=== PATIENT | female | born 1975 | race African-American/Black ===

== ENCOUNTER 2016-11-01 21:00 | Emergency (ER) | payer MEDICAID ==
[~2016-11-01] VITALS: Ht 165.1 cm; Wt 104.3 kg
[~2016-11-01 21:00] MED LIST: BLEPH-105 ML OP; FIORICET1 EA ORAL; FUROSEMIDE40 MG ORAL; IBUPROFEN600 MG ORAL; IMITREX50 MG ORAL; NAPHCON-A EYE D15 ML OP; NORCO 5-325 TA1 EACH ORAL; ZOFRAN ODT4 MG ORAL; ZOFRAN4 M3 ORAL
[2016-11-01] MEDS ORDERED: NKM (21:06)
[2016-11-01] MEDS ORDERED: Aspirin Baby 81mg ORAL ONE (21:15)
[2016-11-01] MEDS ORDERED: LORazepam Inj 2mg/ml 1ml IV ONE (21:15)
[2016-11-01] MEDS ORDERED: Morphine Sulfate 2mg/ml Inj IVP ONE (21:15)
[2016-11-01] MEDS ORDERED: Famotidine 20 MG/ 2ML VIAL IVP ONE (21:15)
[2016-11-01 21:51] LABS: BASOPHILS % (AUTO) 1.3 % (0.0-2.0); EOSINOPHILS % (AUTO) 1.4 % (0.0-3.0); LYMPHOCYTES % (AUTO) 37.7 % (20.0-45.0); MEAN CORPUSCULAR HEMOGLOBIN 29.3 PG (27.0-31.0); MEAN CORPUSCULAR HGB CONC 32.2 G/DL (32.0-36.0); MEAN CORPUSCULAR VOLUME 91 FL (80-99); MEAN PLATELET VOLUME 7.3 FL (6.5-10.1); MONOCYTES % (AUTO) 5.4 % (1.0-10.0); NEUTROPHILS % (AUTO) 54.2 % (45.0-75.0); PLATELET COUNT 317 K/UL (150-450); RED BLOOD COUNT 4.02 M/UL (4.20-5.40); RED CELL DISTRIBUTION WIDTH 12.8 % (11.6-14.8); WHITE BLOOD COUNT 9.1 K/UL (4.8-10.8)
[2016-11-01 21:56] VITALS: BP 169/108
[2016-11-01 22:14] LABS: ALANINE AMINOTRANSFERASE 16 U/L (3-33); ALBUMIN/GLOBULIN RATIO 1.4 (1.0-2.7); ANION GAP 19 (5-15); ASPARTATE AMINO TRANSFERASE 21 U/L (5-40); CALCIUM 8.7 mg/dL (8.6-10.2); CARBON DIOXIDE 22 mEQ/L (20-30); CHLORIDE 99 mEQ/L (98-107); GLOMERULAR FILTRATION RATE > 60 mL/min (>60); HEMOLYSIS 51; POTASSIUM 3.4 mEQ/L (3.4-4.9); SODIUM 140 mEQ/L (135-145); TOTAL PROTEIN 7.1 g/dL (6.6-8.7); TROPONIN I < 0.30 ng/mL (<=0.30)
--- NOTE | 2016-11-01 22:31 | Emergency Room Report ---
History of Present Illness General Chief Complaint: Chest Pain Source: Patient Present Illness HPI Patient presents with chest pain. She feels as been sharp and pressure which began at 13:00. Pain is not exertional. Some associated dyspnea and nausea. More anxiety. Pain not radiate. Not sig rad to L arm. Not take aspirin. No vomit, melena. Slight nausea. Pain 10/10. No fevers, cough, URI, sore throat, rashes. Chest increased stress because her father has recently had amputations. She's been caring for her dad recently. Tearful and feel overwhelmed and also sad. Not SI. Periods are somewhat irregular. Allergies: Coded Allergies: SHELLFISH DERIVED (Unverified Allergy, Unknown, 11/12/15) Uncoded Allergies: SHELL FISH (Allergy, Unknown, 11/12/15) Patient History Past Medical History: see triage record Pertinent Family History: DM Social History: Reports: smoking - although she denied this to me Social History Narrative Last Menstrual Period: 10/20/2016 Now: No : 7 Para: 3 Reviewed Nursing Documentation: PMH: Agreed, PSxH: Agreed Nursing Documentation-PMH Hx Hypertension: Yes Review of Systems All Other Systems: negative except mentioned in HPI Physical Exam Vital Signs Date Time Temp Pulse Resp B/P Pulse Ox O2 Delivery O2 Flow Rate FiO2 11/01/16 21:02 98.6 111 20 196/144 99 Room Air Sp02 EP Interpretation: reviewed, normal General Appearance: well appearing, GCS 15, mild distress Head: normocephalic Eyes: bilateral eye PERRL, bilateral eye normal inspection, bilateral eye other - tears ENT: moist mucus membranes Neck: supple Respiratory: chest non-tender, lungs clear, normal breath sounds Cardiovascular #1: regular rate, rhythm Cardiovascular #2: 2+ radial (R) Gastrointestinal: normal inspection, normal bowel sounds, non tender, no mass, non-distended, overweight Musculoskeletal: back normal, gait/station normal, normal range of motion, no calf tenderness Neurologic: alert, oriented x3, motor strength/tone normal, grossly normal Psychiatric: depressed affect Skin: normal inspection, warm/dry Medical Decision Making Diagnostic Impression: Primary Impression: Chest pain Qualified Codes: R07.9 - Chest pain, unspecified Additional Impression: Stress ER Course Patient presents with chest pain. History is atypical and risk factors minimal. DDx; acs, ami, GERD, stress, costochondritis, viral syndrome amongst others. Emergent evaluation with EKG, CXR, labs. Treatment with ativan and analgesics. VS and history against PE. Will also give pepcid as GI high on differential. EKG normal. CXR also without CP disease. Labs unremarkable. Patient greatly improved. Patient stable for outpatient observation and treatment. Laboratory Tests Test 11/01/16 21:24 White Blood Count 9.1 K/UL (4.8-10.8) Red Blood Count 4.02 M/UL (4.20-5.40) L Hemoglobin 11.8 G/DL (12.0-16.0) L Hematocrit 36.7 % (37.0-47.0) L Mean Corpuscular Volume 91 FL (80-99) Mean Corpuscular Hemoglobin 29.3 PG (27.0-31.0) Mean Corpuscular Hemoglobin Concent 32.2 G/DL (32.0-36.0) Red Cell Distribution Width 12.8 % (11.6-14.8) Platelet Count 317 K/UL (150-450) Mean Platelet Volume 7.3 FL (6.5-10.1) Neutrophils (%) (Auto) 54.2 % (45.0-75.0) Lymphocytes (%) (Auto) 37.7 % (20.0-45.0) Monocytes (%) (Auto) 5.4 % (1.0-10.0) Eosinophils (%) (Auto) 1.4 % (0.0-3.0) Basophils (%) (Auto) 1.3 % (0.0-2.0) Urine HCG, Qualitative Negative Sodium Level 140 mEQ/L (135-145) Potassium Level 3.4 mEQ/L (3.4-4.9) Chloride Level 99 mEQ/L (98-107) Carbon Dioxide Level 22 mEQ/L (20-30) Anion Gap 19 (5-15) H Blood Urea Nitrogen 7 mg/dL (7-23) Creatinine 1.0 mg/dL (0.5-0.9) H Estimate Glomerular Filtration Rate > 60 mL/min (>60) Glucose Level 102 mg/dL (74-106) Calcium Level 8.7 mg/dL (8.6-10.2) Total Bilirubin 0.6 mg/dL (0.0-1.2) Aspartate Amino Transferase (AST) 21 U/L (5-40) Alanine Aminotransferase (ALT) 16 U/L (3-33) Alkaline Phosphatase 48 U/L (35-104) Total Creatine Kinase 128 U/L (26-140) Troponin I < 0.30 ng/mL (<=0.30) Total Protein 7.1 g/dL (6.6-8.7) Albumin 4.2 g/dL (3.5-5.2) Globulin 2.9 g/dL Albumin/Globulin Ratio 1.4 (1.0-2.7) EKG Diagnostic Results Rate: tachycardiac ST Segments: no acute changes Rhythm Strip Diag. Results EP Interpretation: yes Rhythm: no PVC's, no ectopy, other - ST Chest X-Ray Diagnostic Results EP Interpretation: Yes Findings: no consolidation, no effusion, no pneumothorax, no acute cardiopulmonary disease Number of Views: 1 Last Vital Signs Date Time Temp Pulse Resp B/P Pulse Ox O2 Delivery O2 Flow Rate FiO2 11/01/16 21:58 98.6 11/01/16 21:56 89 20 169/108 99 Room Air Status: improved Disposition: HOME, SELF-CARE Condition: Improved Scripts Famotidine (PEPCID) 20 Mg Tablet 20 MG ORAL DAILY, #30 TAB 0 Refills Prov: Philip Nielsen M.D. 11/01/16 Tramadol Hcl* (ULTRAM*) 50 Mg Tablet 50 MG ORAL Q6H Y for For Pain, #12 TAB 0 Refills Prov: Philip Nielsen M.D. 11/01/16 Referrals: [facility],REF (PCP) Philip Nielsen M.D. Nov 01, 2016 22:31
[2016-11-01] MEDS ORDERED: PEPCID20 MG ORAL (23:03)
[2016-11-01] MEDS ORDERED: TRAMADOL HCL50 MG ORAL (23:03)
[2016-11-01 23:15] VITALS: BP 148/99
--- NOTE | 2016-11-02 10:02 | Diagnostic Imaging Report ---
Indication: Chest pain Technique: XRAY CHEST 1 V Comparison: None Findings: The cardiomediastinal silhouette is within normal limits. There is no focal consolidation, pneumothorax or pleural effusion. Osseous structures demonstrate no acute abnormality. Impression: No acute cardiopulmonary disease.
--- NOTE | 2016-11-08 16:43 | Cardiology Report ---
APPROVED REPORT EKG Measurement Heart [id number] Sinus tachycardia Otherwise normal ECG
== END 2016-11-01 23:17 | disposition home or self-care (01) ==
LOC: EMR 21:18
DX: R07.9 Chest pain, unspecified (principal); F43.9 Reaction to severe stress, unspecified; I10 Essential (primary) hypertension; E11.9 Type 2 diabetes mellitus without complications; F17.200 Nicotine dependence, unspecified, uncomplicated; Z91.013 Allergy to seafood
CPT/HCPCS: 36415; 71010; 80053; 81025; 82550; 84484; 85025; 93005; 96374; 96375; 99284; J2270; J2405; S0028

== ENCOUNTER 2017-06-20 13:31 | Emergency (ER) | payer MEDICAID ==
[~2017-06-20] VITALS: Ht 165.1 cm; Wt 112.5 kg
[~2017-06-20 13:31] MED LIST changes: +NKM; +PEPCID20 MG ORAL; +TRAMADOL HCL50 MG ORAL
[2017-06-20 13:45] VITALS: BP 141/79
[2017-06-20] MEDS ORDERED: Morphine Sulfate 2mg/ml Inj IVP ONE (14:15)
[2017-06-20] MEDS ORDERED: LORazepam Inj 2mg/ml 1ml IV ONE (14:15)
[2017-06-20 14:35] LABS: EOSINOPHILS % (AUTO) 1.6 % (0.0-3.0); LYMPHOCYTES % (AUTO) 37.6 % (20.0-45.0); MEAN CORPUSCULAR HEMOGLOBIN 30.3 PG (27.0-31.0); MEAN CORPUSCULAR HGB CONC 32.5 G/DL (32.0-36.0); MEAN CORPUSCULAR VOLUME 93 FL (80-99); MEAN PLATELET VOLUME 7.5 FL (6.5-10.1); MONOCYTES % (AUTO) 8.8 % (1.0-10.0); PLATELET COUNT 362 K/UL (150-450); RED BLOOD COUNT 3.97 M/UL (4.20-5.40); RED CELL DISTRIBUTION WIDTH 12.6 % (11.6-14.8); WHITE BLOOD COUNT 7.1 K/UL (4.8-10.8)
--- NOTE | 2017-06-20 14:55 | Emergency Room Report ---
History of Present Illness General Chief Complaint: Chest Pain Source: Patient, Medical Record Present Illness HPI 42-year-old female presents to ED for evaluation. Patient is here complaining of chest tightness x2 days. Pain is 5/10, sharp, localized to left lower chest. Nonradiating. Denies shortness of breath. Patient denies fevers or chills. Denies cough. States she's been here similar recent patient in the past. Work up is negative. 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 Patient believes her symptoms are possibly due to anxiety. Has recently several stressors in her life. Denies smoking or drug use. No other aggravating relieving factors. Denies any other associated symptoms Allergies: Coded Allergies: SHELLFISH DERIVED (Unverified Allergy, Unknown, 11/12/15) Uncoded Allergies: SHELL FISH (Allergy, Unknown, 11/12/15) Patient History Past Medical History: none, HTN Past Surgical History: none Pertinent Family History: none Social History: Denies: smoking, alcohol use, drug use Last Menstrual Period: 06/01/17 Now: No Immunizations: UTD Reviewed Nursing Documentation: PMH: Agreed, PSxH: Agreed Nursing Documentation-PMH Past Medical History: No History, Except For Hx Hypertension: Yes Review of Systems All Other Systems: negative except mentioned in HPI Physical Exam Vital Signs Date Time Temp Pulse Resp B/P (MAP) Pulse Ox O2 Delivery O2 Flow Rate FiO2 06/20/17 13:39 97.2 94 14 141/79 100 Room Air Sp02 EP Interpretation: reviewed, normal General Appearance: no apparent distress, alert, GCS 15, non-toxic, obese Head: normocephalic, atraumatic Eyes: bilateral eye normal inspection, bilateral eye PERRL ENT: hearing grossly normal, normal pharynx, no angioedema, normal voice Neck: full range of motion, supple/symm/no masses Respiratory: lungs clear, normal breath sounds, speaking full sentences, other - reproducible chest wall pain Cardiovascular #1: regular rate, rhythm, no edema Cardiovascular #2: 2+ carotid (R), 2+ carotid (L), 2+ radial (R), 2+ radial (L) , 2+ dorsalis pedis (R), 2+ dorsalis pedis (L) Gastrointestinal: normal bowel sounds, non tender, soft, non-distended, no guarding, no rebound Rectal: deferred Genitourinary: normal inspection, no CVA tenderness Musculoskeletal: back normal, gait/station normal, normal range of motion, non- tender Neurologic: alert, oriented x3, responsive, motor strength/tone normal, sensory intact, speech normal Psychiatric: judgement/insight normal, memory normal, mood/affect normal, no suicidal/homicidal ideation Reflexes: 3+ bicep (R), 3+ bicep (L), 3+ tricep (R), 3+ tricep (L), 3+ knee (R) , 3+ knee (L) Skin: normal color, no rash, warm/dry, well hydrated Lymphatic: no adenopathy Medical Decision Making Diagnostic Impression: Primary Impression: Chest pain Qualified Codes: R07.9 - Chest pain, unspecified Additional Impression: Stress ER Course Hospital Course 42-year-old F presents ED complaining of chest pain Differential diagnoses include: Rib fracture, MN/unstable angina, contusion, muscle strain Clinical course Patient placed on stretcher. After initial history and physical I ordered labs , EKG, chest x-ray, medications. labs reviewed- all electrolytes normal, troponins negative, no leukocytosis, hemoglobin/hematocrit stable EKG - NSR , no acute ischemic changes interpreted by me Chest x-ray-no cardiomegaly, no rib fracture, no pneumothorax, no acute process I reviewed EMR. Patient has been here previously for similar episode of chest pain. Workup was also negative at that time. Possibility of anxiety discussed with patient at that time. I agree with assessment of anxiety. I examined the patient and believe the pain is also likely muscular. 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 I feel this is a highly complex case requiring extensive working including EKG/Rhythm strip, Xray/CT/US, Blood/urine lab work, repeat exams while in ED, and administration of strong opiates/narcotics for pain control, admission to hospital or close patient follow up. Diagnosis - chest pain Stable and discharged to home with Rx Xanax. Instructed to followup with PMD. Return to ED if symptoms recur or worsen Labs Test 06/20/17 14:20 White Blood Count 7.1 K/UL (4.8-10.8) Red Blood Count 3.97 M/UL (4.20-5.40) Hemoglobin 12.0 G/DL (12.0-16.0) Hematocrit 37.0 % (37.0-47.0) Mean Corpuscular Volume 93 FL (80-99) Mean Corpuscular Hemoglobin 30.3 PG (27.0-31.0) Mean Corpuscular Hemoglobin Concent 32.5 G/DL (32.0-36.0) Red Cell Distribution Width 12.6 % (11.6-14.8) Platelet Count 362 K/UL (150-450) Mean Platelet Volume 7.5 FL (6.5-10.1) Neutrophils (%) (Auto) 51.0 % (45.0-75.0) Lymphocytes (%) (Auto) 37.6 % (20.0-45.0) Monocytes (%) (Auto) 8.8 % (1.0-10.0) Eosinophils (%) (Auto) 1.6 % (0.0-3.0) Basophils (%) (Auto) 1.0 % (0.0-2.0) Sodium Level 142 MMOL/L (136-145) Potassium Level 3.3 MMOL/L (3.5-5.1) Chloride Level 106 MMOL/L (98-107) Carbon Dioxide Level 23 MMOL/L (21-32) Anion Gap 13 mmol/L (5-15) Blood Urea Nitrogen 12 mg/dL (7-18) Creatinine 1.0 MG/DL (0.55-1.30) Estimat Glomerular Filtration Rate > 60 mL/min (>60) Glucose Level 83 MG/DL (74-106) Calcium Level 9.4 MG/DL (8.5-10.1) Total Bilirubin 0.4 MG/DL (0.2-1.0) Aspartate Amino Transf (AST/SGOT) 15 U/L (15-37) Alanine Aminotransferase (ALT/SGPT) 21 U/L (12-78) Alkaline Phosphatase 43 U/L (46-116) Total Creatine Kinase 94 U/L (26-308) Creatine Kinase MB 0.5 NG/ML (0.0-3.6) Creatine Kinase MB Relative Index 0.5 Troponin I 0.000 ng/mL (0.000-0.056) Total Protein 7.3 G/DL (6.4-8.2) Albumin 3.5 G/DL (3.4-5.0) Globulin 3.8 g/dL Albumin/Globulin Ratio 0.9 (1.0-2.7) EKG Diagnostic Results Rate: normal Rhythm: NSR ST Segments: no acute changes ASA given to the pt in ED: No Rhythm Strip Diag. Results EP Interpretation: yes Rhythm: NSR, no PVC's, no ectopy Chest X-Ray Diagnostic Results Chest X-Ray Diagnostic Results : # of Views/Limited/Complete: 1 View Indication: Chest Pain EP Interpretation: Yes Interpretation: no consolidation, no effusion, no pneumothorax, no acute cardiopulmonary disease Impression: No acute disease Electronically Signed by: electronically signed by Lamin Langford MD Last Vital Signs Date Time Temp Pulse Resp B/P (MAP) Pulse Ox O2 Delivery O2 Flow Rate FiO2 06/20/17 13:39 97.2 94 14 141/79 100 Room Air Status: improved Disposition: HOME, SELF-CARE Condition: Serious Scripts Alprazolam* (XANAX*) 0.25 Mg Tablet 0.25 MG ORAL TID Y for For Anxiety, #20 TAB Prov: LAMIN LANGFORD M.D. 06/20/17 LAMIN LANGFORD M.D. Jun 20, 2017 14:55
[2017-06-20 14:57] LABS: ALANINE AMINOTRANSFERASE 21 U/L (12-78); ALBUMIN/GLOBULIN RATIO 0.9 (1.0-2.7); ANION GAP 13 mmol/L (5-15); ASPARTATE AMINO TRANSFERASE 15 U/L (15-37); CALCIUM 9.4 MG/DL (8.5-10.1); CARBON DIOXIDE 23 MMOL/L (21-32); CHLORIDE 106 MMOL/L (98-107); CKMB 0.5 NG/ML (0.0-3.6); GLOMERULAR FILTRATION RATE > 60 mL/min (>60); POTASSIUM 3.3 MMOL/L (3.5-5.1); SODIUM 142 MMOL/L (136-145); TOTAL PROTEIN 7.3 G/DL (6.4-8.2)
[2017-06-20 15:15] VITALS: BP 136/82
[2017-06-20] MEDS ORDERED: ALPRAZOLAM0.25 MG ORAL (15:15)
[2017-06-20 15:27] VITALS: BP 136/82
--- NOTE | 2017-06-20 17:44 | Diagnostic Imaging Report ---
Indication: PAIN Technique: One view of the chest Comparison: 11/01/2016 Findings: Lungs and pleural spaces are clear. Heart size is normal. No significant interim change Impression: No acute process
--- NOTE | 2017-06-22 17:34 | Cardiology Report ---
APPROVED REPORT EKG Measurement Heart [id number] Normal sinus rhythm Prolonged QT Abnormal ECG
== END 2017-06-20 15:27 | disposition home or self-care (01) ==
LOC: EMR 14:04
DX: R07.9 Chest pain, unspecified (principal); I10 Essential (primary) hypertension
CPT/HCPCS: 36415; 71010; 80053; 82550; 82553; 84484; 85025; 93005; 96374; 96375; 99284; J2270; S0028

== ENCOUNTER 2017-10-03 06:03 | Inpatient (IN) | payer MEDICAID ==
[2017-10-03] VITALS (9 sets, daily range): BP systolic 138–178; BP diastolic 74–123
[~2017-10-03] VITALS: Ht 162.6 cm; Wt 104.3 kg
[~2017-10-03 06:03] MED LIST changes: +ALPRAZOLAM0.25 MG ORAL
[2017-10-03] MEDS ORDERED: NKM (06:20)
--- NOTE | 2017-10-03 06:56 | Emergency Room Report ---
History of Present Illness General Chief Complaint: Diarrhea Source: Patient Present Illness HPI Patient presents with complaints of initially diarrhea Ongoing for the past 3 days patient has also developed a headache describes as a migraine headache She has had migraines in the past starting in the occipital region coming up toward bilateral parietal region Patient also complains of cough Denies any vomiting Denies any fevers or chills denies any neck pain denies any photophobia Denies any fall or trauma patient reports that she has not taken any medication prior to arrival She reports that she has taken Imitrex in the past for migraines Allergies: Coded Allergies: SHELLFISH DERIVED (Unverified Allergy, Unknown, 11/12/15) Patient History Past Medical History: see triage record Pertinent Family History: none Last Menstrual Period: 09/14/17 Now: No : 7 Para: 3 Reviewed Nursing Documentation: PMH: Agreed, PSxH: Agreed Nursing Documentation-PMH Hx Hypertension: Yes Review of Systems All Other Systems: negative except mentioned in HPI Physical Exam Vital Signs Date Time Temp Pulse Resp B/P (MAP) Pulse Ox O2 Delivery O2 Flow Rate FiO2 10/03/17 06:16 99.9 119 18 178/123 93 Room Air Sp02 EP Interpretation: reviewed, normal General Appearance: no apparent distress Head: normocephalic, atraumatic Eyes: bilateral eye PERRL, bilateral eye EOMI ENT: hearing grossly normal, normal pharynx, TMs + canals normal, uvula midline Neck: full range of motion, supple, no meningismus, no bony tend Respiratory: lungs clear, normal breath sounds, no rhonchi, no respiratory distress, no retraction, no accessory muscle use Cardiovascular #1: normal peripheral pulses, regular rate, rhythm, no edema, no gallop, no JVD, no murmur Gastrointestinal: normal bowel sounds, non tender, soft, no mass, no organomegaly, non-distended, no guarding, no hernia, no pulsatile mass, no rebound Genitourinary: no CVA tenderness Musculoskeletal: normal inspection Neurologic: oriented x3, responsive, 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, motor strength/ tone normal, sensory intact Psychiatric: mood/affect normal Skin: normal color, no rash, warm/dry, palpation normal Lymphatic: normal inspection, no adenopathy Medical Decision Making Diagnostic Impression: Primary Impression: Hypertensive emergency ER Course Patient's complex requiring imaging and blood work Multiple differentials considered CT head was eventually performed as the patient remained hypertensive which was negative patient was requiring multiple re\re interventions in the emergency room blood pressure is difficult to get under control given the different complaints along with the hypertensive presentation hypotensive malignancy is considered and patient admitted for further inpatient care Labs Test 10/03/17 06:25 10/03/17 06:55 10/03/17 18:25 10/04/17 06:20 Urine Color Yellow Urine Appearance Clear Urine pH 6 (4.5-8.0) Urine Specific [place] 1.020 (1.005-1.035) Urine Protein 3+ (NEGATIVE) Urine Glucose (UA) Negative (NEGATIVE) Urine Ketones 2+ (NEGATIVE) Urine Occult Blood 5+ (NEGATIVE) Urine Nitrite Negative (NEGATIVE) Urine Bilirubin Negative (NEGATIVE) Urine Urobilinogen Normal MG/DL (0.0-1.0) Urine Leukocyte Esterase Negative (NEGATIVE) Urine RBC 10-15 /HPF (0 - 2) Urine WBC 0-2 /HPF (0 - 2) Urine Squamous Epithelial Cells Few /LPF (NONE/OCC) Urine Bacteria Few /HPF (NONE) Urine Mucus Few /LPF (NONE/OCC) Urine HCG, Qualitative Negative Urine Opiates Screen Negative (NEGATIVE) Urine Barbiturates Screen Negative (NEGATIVE) Phencyclidine (PCP) Screen Negative (NEGATIVE) Urine Amphetamines Screen Negative (NEGATIVE) Urine Benzodiazepines Screen Negative (NEGATIVE) Urine Cocaine Screen Negative (NEGATIVE) Urine Marijuana (THC) Screen Positive (NEGATIVE) White Blood Count 6.3 K/UL (4.8-10.8) 3.5 K/UL (4.8-10.8) Red Blood Count 4.03 M/UL (4.20-5.40) 3.46 M/UL (4.20-5.40) Hemoglobin 11.7 G/DL (12.0-16.0) 10.1 G/DL (12.0-16.0) Hematocrit 35.7 % (37.0-47.0) 30.6 % (37.0-47.0) Mean Corpuscular Volume 89 FL (80-99) 89 FL (80-99) Mean Corpuscular Hemoglobin 29.1 PG (27.0-31.0) 29.2 PG (27.0-31.0) Mean Corpuscular Hemoglobin Concent 32.9 G/DL (32.0-36.0) 32.9 G/DL (32.0-36.0) Red Cell Distribution Width 13.2 % (11.6-14.8) 13.4 % (11.6-14.8) Platelet Count 275 K/UL (150-450) 210 K/UL (150-450) Mean Platelet Volume 7.6 FL (6.5-10.1) 7.7 FL (6.5-10.1) Neutrophils (%) (Auto) % (45.0-75.0) 69.0 % (45.0-75.0) Lymphocytes (%) (Auto) % (20.0-45.0) 16.4 % (20.0-45.0) Monocytes (%) (Auto) % (1.0-10.0) 13.2 % (1.0-10.0) Eosinophils (%) (Auto) % (0.0-3.0) 0.0 % (0.0-3.0) Basophils (%) (Auto) % (0.0-2.0) 1.5 % (0.0-2.0) Differential Total Cells Counted 100 Neutrophils % (Manual) 90 % (45-75) Lymphocytes % (Manual) 3 % (20-45) Monocytes % (Manual) 6 % (1-10) Eosinophils % (Manual) 0 % (0-3) Basophils % (Manual) 1 % (0-2) Band Neutrophils 0 % (0-8) Platelet Estimate Adequate Platelet Morphology Normal Hypochromasia 1+ Anisocytosis 1+ Sodium Level 138 MMOL/L (136-145) Potassium Level 3.3 MMOL/L (3.5-5.1) Chloride Level 104 MMOL/L (98-107) Carbon Dioxide Level 23 MMOL/L (21-32) Anion Gap 11 mmol/L (5-15) Blood Urea Nitrogen 7 mg/dL (7-18) Creatinine 0.9 MG/DL (0.55-1.30) Estimat Glomerular Filtration Rate > 60 mL/min (>60) Glucose Level 112 MG/DL (74-106) Calcium Level 8.7 MG/DL (8.5-10.1) Total Bilirubin 0.4 MG/DL (0.2-1.0) Aspartate Amino Transf (AST/SGOT) 25 U/L (15-37) Alanine Aminotransferase (ALT/SGPT) 29 U/L (12-78) Alkaline Phosphatase 51 U/L (46-116) Total Protein 7.5 G/DL (6.4-8.2) Albumin 3.4 G/DL (3.4-5.0) Globulin 4.1 g/dL Albumin/Globulin Ratio 0.8 (1.0-2.7) Lipase 79 U/L (73-393) Erythrocyte Sedimentation Rate 47 MM/HR (0-20) Troponin I 0.000 ng/mL (0.000-0.056) 0.000 ng/mL (0.000-0.056) Prothrombin Time 10.3 SEC (9.30-11.50) Prothromb Time International Ratio 1.0 (0.9-1.1) Activated Partial Thromboplast Time 30 SEC (23-33) C-Reactive Protein, Quantitative 3.9 mg/dL (0.00-0.90) Triglycerides Level 57 MG/DL (30-150) Cholesterol Level 156 MG/DL (< 200) LDL Cholesterol 66 mg/dL (<100) HDL Cholesterol 86 MG/DL (40-60) Cholesterol/HDL Ratio 1.8 (3.3-4.4) Thyroid Stimulating Hormone (TSH) 0.367 uiU/mL (0.358-3.740) HIV (1&2) Antibody Rapid Negative (NEGATIVE) Test 10/04/17 13:45 Prothrombin Time 10.2 SEC (9.30-11.50) Prothromb Time International Ratio 1.0 (0.9-1.1) Activated Partial Thromboplast Time 31 SEC (23-33) EKG Diagnostic Results Rate: normal Rhythm: NSR ST Segments: no acute changes Rhythm Strip Diag. Results EP Interpretation: yes Rate: 88 Rhythm: NSR, no PVC's, no ectopy Chest X-Ray Diagnostic Results Chest X-Ray Diagnostic Results : Chest X-Ray Ordered: Yes # of Views/Limited/Complete: 1 View Indication: Chest Pain EP Interpretation: Yes Interpretation: no consolidation, no effusion, no pneumothorax, no acute cardiopulmonary disease Impression: No acute disease Electronically Signed by: Ayde Valenzuela, CT/MRI/US Diagnostic Results CT/MRI/US Diagnostic Results : Impression CT head no acute disease Last Vital Signs Date Time Temp Pulse Resp B/P (MAP) Pulse Ox O2 Delivery O2 Flow Rate FiO2 10/03/17 06:34 99.9 119 18 178/123 93 Room Air Status: improved Disposition: ADMITTED INPATIENT Condition: Serious Referrals: [facility],REF (PCP) AYDE VALENZUELA D.O. Oct 03, 2017 06:56
[2017-10-03] MEDS ORDERED: Sodium Chloride 500ML 500 ML IV ONE (07:00)
[2017-10-03] MEDS ORDERED: Ketorolac 30mg Inj IV ONE (07:00)
[2017-10-03] MEDS ORDERED: DiphenhydrAMINE 50mg/ml Inj IVP ONE (07:00)
[2017-10-03 07:11] LABS: APPEARANCE,URINE CLEAR; BILIRUBIN, URINE NEGATIVE (NEGATIVE); GLUCOSE, URINE (UA) NEGATIVE (NEGATIVE); KETONES,URINE 2+ (NEGATIVE); LEUKOCYTE ESTERASE ,URINE NEGATIVE (NEGATIVE); NITRITE,URINE NEGATIVE (NEGATIVE); PH,URINE 6 (4.5-8.0); PROTEIN,URINE 3+ (NEGATIVE); UROBILINOGEN,URINE NORMAL MG/DL (0.0-1.0)
[2017-10-03 07:18] LABS: HEMATOCRIT 35.7 % (37.0-47.0); HEMOGLOBIN 11.7 G/DL (12.0-16.0); MEAN CORPUSCULAR VOLUME 89 FL (80-99); PLATELET COUNT 275 K/UL (150-450); RED BLOOD COUNT 4.03 M/UL (4.20-5.40); RED CELL DISTRIBUTION WIDTH 13.2 % (11.6-14.8); WHITE BLOOD COUNT 6.3 K/UL (4.8-10.8)
[2017-10-03 07:21] LABS: COLOR,URINE YELLOW
[2017-10-03 07:21] LABS: ANION GAP 11 mmol/L (5-15); BLOOD UREA NITROGEN 7 mg/dL (7-18); CALCIUM 8.7 MG/DL (8.5-10.1); CARBON DIOXIDE 23 MMOL/L (21-32); CHLORIDE 104 MMOL/L (98-107); CREATININE 0.9 MG/DL (0.55-1.30); POTASSIUM 3.3 MMOL/L (3.5-5.1); SODIUM 138 MMOL/L (136-145)
[2017-10-03 07:25] LABS: ALANINE AMINOTRANSFERASE 29 U/L (12-78); ALBUMIN 3.4 G/DL (3.4-5.0); ALBUMIN/GLOBULIN RATIO 0.8 (1.0-2.7); ALKALINE PHOSPHATASE 51 U/L (46-116); ASPARTATE AMINO TRANSFERASE 25 U/L (15-37); BILIRUBIN,TOTAL 0.4 MG/DL (0.2-1.0)
[2017-10-03] MEDS ORDERED: LORazepam Inj 2mg/ml 1ml IV ONE (08:00)
[2017-10-03] MEDS ORDERED: Morphine Sulfate 4mg/ml Inj IVP ONE (08:00)
[2017-10-03] MEDS ORDERED: Albuterol/Ipratropium 3ml neb HHN PRN (13:45)
[2017-10-03] MEDS ORDERED: Labetalol 5mg/ml 20ml vial IV PRN (13:45)
[2017-10-03] MEDS ORDERED: dilTIAZem HCl 25mg/5ml Inj IV PRN (13:45)
[2017-10-03] MEDS ORDERED: Enalaprilat 2.5mg/2ml Inj IV PRN ×2 (13:45→15:30)
[2017-10-03] MEDS ORDERED: Promethazine/Codeine 5ml UD ORAL PRN (13:45)
[2017-10-03] MEDS ORDERED: Miralax 17gm pkt ORAL PRN (13:45)
--- NOTE | 2017-10-03 14:16 | Diagnostic Imaging Report ---
Indication: Dyspnea Comparison: 06/20/2017 A single view chest radiograph was obtained. Findings: Cardiomediastinal appearance is within normal limits for age. Pulmonary vascularity is appropriate. The diaphragmatic contour is smooth and costophrenic angles are sharp. No pleural effusions are identified. The bones are unremarkable. Impression: No acute findings
--- NOTE | 2017-10-03 14:16 | Diagnostic Imaging Report ---
Indication: Headache Technique: Contiguous 5 mm thick transaxial imaging of the head obtained in a Siemens Sensation [address] scanner. Soft tissue and bone windows generated. Automatic Exposure Control was utilized. Total Dose length Product (DLP): 1369.[address] Dose Index Volume (CTDIvol): 70.38 mGy Comparison: 12/04/2015 Findings: The size and configuration of the cortical sulci, basal cisterns, and ventricles are within normal limits for age. There is no mass effect, midline shift, or edema identified. There is no evidence of acute hemorrhage or abnormal intra-axial or extra-axial fluid collections. The bones and soft tissues are unremarkable. Impression: No mass effect, edema or acute bleed. The CT scanner at [facility] is accredited by the [employer] and the scans are performed using dose optimization techniques as appropriate to a performed exam including Automatic Exposure control.
[2017-10-03] MEDS ORDERED: Nitroglycerin Subl 0.4mg tab SL PRN (15:30)
--- NOTE | 2017-10-03 17:20 | Neurology Progress Note ---
Objective Physical Exam Last Vital Signs Date Time Temp Pulse Resp B/P (MAP) Pulse Ox O2 Delivery O2 Flow Rate FiO2 10/03/17 15:38 115 171/112 10/03/17 15:25 101.6 10/03/17 15:19 20 98 Room Air Laboratory Tests Test 10/03/17 06:25 10/03/17 06:55 Urine Color Yellow Urine Appearance Clear Urine pH 6 (4.5-8.0) Urine Specific [place] 1.020 (1.005-1.035) Urine Protein 3+ (NEGATIVE) H Urine Glucose (UA) Negative (NEGATIVE) Urine Ketones 2+ (NEGATIVE) H Urine Occult Blood 5+ (NEGATIVE) H Urine Nitrite Negative (NEGATIVE) Urine Bilirubin Negative (NEGATIVE) Urine Urobilinogen Normal MG/DL (0.0-1.0) Urine Leukocyte Esterase Negative (NEGATIVE) Urine RBC 10-15 /HPF (0 - 2) H Urine WBC 0-2 /HPF (0 - 2) Urine Squamous Epithelial Cells Few /LPF (NONE/OCC) Urine Bacteria Few /HPF (NONE) Urine Mucus Few /LPF (NONE/OCC) H Urine HCG, Qualitative Negative Urine Opiates Screen Negative (NEGATIVE) Urine Barbiturates Screen Negative (NEGATIVE) Phencyclidine (PCP) Screen Negative (NEGATIVE) Urine Amphetamines Screen Negative (NEGATIVE) Urine Benzodiazepines Screen Negative (NEGATIVE) Urine Cocaine Screen Negative (NEGATIVE) Urine Marijuana (THC) Screen Positive (NEGATIVE) H White Blood Count 6.3 K/UL (4.8-10.8) Red Blood Count 4.03 M/UL (4.20-5.40) L Hemoglobin 11.7 G/DL (12.0-16.0) L Hematocrit 35.7 % (37.0-47.0) L Mean Corpuscular Volume 89 FL (80-99) Mean Corpuscular Hemoglobin 29.1 PG (27.0-31.0) Mean Corpuscular Hemoglobin Concent 32.9 G/DL (32.0-36.0) Red Cell Distribution Width 13.2 % (11.6-14.8) Platelet Count 275 K/UL (150-450) Mean Platelet Volume 7.6 FL (6.5-10.1) Neutrophils (%) (Auto) % (45.0-75.0) Lymphocytes (%) (Auto) % (20.0-45.0) Monocytes (%) (Auto) % (1.0-10.0) Eosinophils (%) (Auto) % (0.0-3.0) Basophils (%) (Auto) % (0.0-2.0) Differential Total Cells Counted 100 Neutrophils % (Manual) 90 % (45-75) H Lymphocytes % (Manual) 3 % (20-45) L Monocytes % (Manual) 6 % (1-10) Eosinophils % (Manual) 0 % (0-3) Basophils % (Manual) 1 % (0-2) Band Neutrophils 0 % (0-8) Platelet Estimate Adequate Platelet Morphology Normal Hypochromasia 1+ Anisocytosis 1+ Sodium Level 138 MMOL/L (136-145) Potassium Level 3.3 MMOL/L (3.5-5.1) L Chloride Level 104 MMOL/L (98-107) Carbon Dioxide Level 23 MMOL/L (21-32) Anion Gap 11 mmol/L (5-15) Blood Urea Nitrogen 7 mg/dL (7-18) Creatinine 0.9 MG/DL (0.55-1.30) Estimat Glomerular Filtration Rate > 60 mL/min (>60) Glucose Level 112 MG/DL (74-106) H Calcium Level 8.7 MG/DL (8.5-10.1) Total Bilirubin 0.4 MG/DL (0.2-1.0) Aspartate Amino Transf (AST/SGOT) 25 U/L (15-37) Alanine Aminotransferase (ALT/SGPT) 29 U/L (12-78) Alkaline Phosphatase 51 U/L (46-116) Total Protein 7.5 G/DL (6.4-8.2) Albumin 3.4 G/DL (3.4-5.0) Globulin 4.1 g/dL Albumin/Globulin Ratio 0.8 (1.0-2.7) L Lipase 79 U/L (73-393) Impression/Recommendations Problems: (1) Acute viral syndrome (2) r.o viral meningitis (3) Migraine headache (4) Hypertensive emergency Status: unchanged Recommendations #[id number] ID [place] pain control CHARIS DOWNS Oct 03, 2017 17:20
[2017-10-03] MEDS ORDERED: HYDROmorphone 1mg/ml Carpuject IVP PRN (17:30)
[2017-10-03] MEDS: Magnesium Oxide 400mg tab ORAL SCH (17:53)
[2017-10-03] MEDS: HYDROmorphone 1mg/ml Carpuject IVP PRN ×2 (17:53→23:20)
--- NOTE | 2017-10-03 18:26 | Cardiology Progress Note ---
Assessment/Plan Assessment/Plan htn poorly controlled non complaince obeisty migrained uri "start on norvasc and acei combination gradual increase dose neuro eval f r head ache flu swab [id number] Objective Last 24 Hour Vital Signs Date Time Temp Pulse Resp B/P (MAP) Pulse Ox O2 Delivery O2 Flow Rate FiO2 10/03/17 18:23 101.6 10/03/17 18:14 105 10/03/17 15:38 115 171/112 10/03/17 15:25 101.6 10/03/17 15:19 101.6 115 20 171/112 98 Room Air 10/03/17 14:49 110 18 167/110 95 Room Air 10/03/17 12:29 100.8 113 164/100 10/03/17 11:11 98.7 90 19 138/74 99 Room Air 10/03/17 10:55 100.5 111 23 161/92 Room Air 10/03/17 09:56 129 172/97 10/03/17 09:51 98.0 10/03/17 09:45 98.0 10/03/17 09:14 98.0 117 18 171/100 95 Room Air 10/03/17 09:07 171/100 10/03/17 07:48 98.0 110 18 176/98 96 Room Air 10/03/17 06:34 99.9 119 18 178/123 93 Room Air 10/03/17 06:16 99.9 119 18 178/123 93 Room Air Laboratory Tests Test 10/03/17 06:25 10/03/17 06:55 Urine Color Yellow Urine Appearance Clear Urine pH 6 (4.5-8.0) Urine Specific [place] 1.020 (1.005-1.035) Urine Protein 3+ (NEGATIVE) H Urine Glucose (UA) Negative (NEGATIVE) Urine Ketones 2+ (NEGATIVE) H Urine Occult Blood 5+ (NEGATIVE) H Urine Nitrite Negative (NEGATIVE) Urine Bilirubin Negative (NEGATIVE) Urine Urobilinogen Normal MG/DL (0.0-1.0) Urine Leukocyte Esterase Negative (NEGATIVE) Urine RBC 10-15 /HPF (0 - 2) H Urine WBC 0-2 /HPF (0 - 2) Urine Squamous Epithelial Cells Few /LPF (NONE/OCC) Urine Bacteria Few /HPF (NONE) Urine Mucus Few /LPF (NONE/OCC) H Urine HCG, Qualitative Negative Urine Opiates Screen Negative (NEGATIVE) Urine Barbiturates Screen Negative (NEGATIVE) Phencyclidine (PCP) Screen Negative (NEGATIVE) Urine Amphetamines Screen Negative (NEGATIVE) Urine Benzodiazepines Screen Negative (NEGATIVE) Urine Cocaine Screen Negative (NEGATIVE) Urine Marijuana (THC) Screen Positive (NEGATIVE) H White Blood Count 6.3 K/UL (4.8-10.8) Red Blood Count 4.03 M/UL (4.20-5.40) L Hemoglobin 11.7 G/DL (12.0-16.0) L Hematocrit 35.7 % (37.0-47.0) L Mean Corpuscular Volume 89 FL (80-99) Mean Corpuscular Hemoglobin 29.1 PG (27.0-31.0) Mean Corpuscular Hemoglobin Concent 32.9 G/DL (32.0-36.0) Red Cell Distribution Width 13.2 % (11.6-14.8) Platelet Count 275 K/UL (150-450) Mean Platelet Volume 7.6 FL (6.5-10.1) Neutrophils (%) (Auto) % (45.0-75.0) Lymphocytes (%) (Auto) % (20.0-45.0) Monocytes (%) (Auto) % (1.0-10.0) Eosinophils (%) (Auto) % (0.0-3.0) Basophils (%) (Auto) % (0.0-2.0) Differential Total Cells Counted 100 Neutrophils % (Manual) 90 % (45-75) H Lymphocytes % (Manual) 3 % (20-45) L Monocytes % (Manual) 6 % (1-10) Eosinophils % (Manual) 0 % (0-3) Basophils % (Manual) 1 % (0-2) Band Neutrophils 0 % (0-8) Platelet Estimate Adequate Platelet Morphology Normal Hypochromasia 1+ Anisocytosis 1+ Sodium Level 138 MMOL/L (136-145) Potassium Level 3.3 MMOL/L (3.5-5.1) L Chloride Level 104 MMOL/L (98-107) Carbon Dioxide Level 23 MMOL/L (21-32) Anion Gap 11 mmol/L (5-15) Blood Urea Nitrogen 7 mg/dL (7-18) Creatinine 0.9 MG/DL (0.55-1.30) Estimat Glomerular Filtration Rate > 60 mL/min (>60) Glucose Level 112 MG/DL (74-106) H Calcium Level 8.7 MG/DL (8.5-10.1) Total Bilirubin 0.4 MG/DL (0.2-1.0) Aspartate Amino Transf (AST/SGOT) 25 U/L (15-37) Alanine Aminotransferase (ALT/SGPT) 29 U/L (12-78) Alkaline Phosphatase 51 U/L (46-116) Total Protein 7.5 G/DL (6.4-8.2) Albumin 3.4 G/DL (3.4-5.0) Globulin 4.1 g/dL Albumin/Globulin Ratio 0.8 (1.0-2.7) L Lipase 79 U/L (73-393) JOE CHILD Oct 03, 2017 18:26
--- NOTE | 2017-10-03 19:32 | Consultation ---
History of Present Illness General Date patient seen: Oct 03, 2017 Time patient seen: 19:32 Chief Complaint: Diarrhea Present Illness HPI 42 y/o F with hx of HTN, obesity, migraine presents to ED on 10/03 with 3 days onset of diarrhea, headaches (similar to her migraine headaches)- starting occipital region and radiating to bilateral parietal region, cough. Denies vomiting, nausea,fall/trauma, rash. +photophobia/phonophobia, neck pain , body aches, mild sore throat. her kids recently with cold symptoms. Febrile up to 101.6, no leukocytosis, at RA. Allergies: Coded Allergies: SHELLFISH DERIVED (Unverified Allergy, Unknown, 11/12/15) Uncoded Allergies: SHELL FISH (Allergy, Unknown, 11/12/15) Medication History Scheduled Acetamin/Butalbital/Caffeine* (Fioricet*), 1 TAB ORAL Q6H Famotidine (Pepcid), 20 MG ORAL DAILY Furosemide* (Lasix*), 40 MG ORAL DAILY, (Reported) No Known Medications* (NKM - No Known Medications*), 0 ., (Reported) No Known Medications* (NKM - No Known Medications*), 0 ., (Reported) Sulfacetamide Sodium (Bleph-10), 2 DROP OP Q6HR Sumatriptan Succinate* (Imitrex*), 50 MG ORAL DAILY PRN MIGRAINE Scheduled PRN Alprazolam* (Xanax*), 0.25 MG ORAL TID PRN for For Anxiety Hydrocodone Bit/Acetaminophen 5-325* ([place] 5-325*), 1 TAB ORAL Q4H PRN for For Pain Ibuprofen* (Motrin*), 600 MG ORAL Q6H PRN for For Pain Naphazoline Hcl/Phenir Mal (Naphcon-A Eye Drops), 2 DROP OP THREE TIMES A DAY PRN for Itching Ondansetron Odt* (Zofran Odt*), 4 MG ORAL Q8H PRN for Nausea & Vomiting Ondansetron* (Zofran*), 4 MG ORAL Q6H PRN for Nausea & Vomiting Tramadol Hcl* (Ultram*), 50 MG ORAL Q6H PRN for For Pain Patient History Healthcare decision maker Resuscitation status Full Code Advanced Directive on File Review of Systems ROS Narrative General Appearance: no apparent distress Head: normocephalic, atraumatic Eyes: bilateral eye PERRL, bilateral eye EOMI ENT: hearing grossly normal, normal pharynx, TMs + canals normal, uvula midline Neck: full range of motion, supple, no meningismus, no bony tend Respiratory: lungs clear, normal breath sounds, no rhonchi, no respiratory distress, no retraction, no accessory muscle use Cardiovascular normal peripheral pulses, regular rate, rhythm, no edema, no gallop, no JVD, no murmur Gastrointestinal: normal bowel sounds, non tender, soft, no mass, no organomegaly, non-distended, no guarding, no hernia, no pulsatile mass, no rebound Genitourinary: no CVA tenderness Musculoskeletal: normal inspection Skin: normal color, no rash, warm/dry, palpation Physical Exam Physical Exam Narrative General Appearance: no apparent distress Head: normocephalic, atraumatic Eyes: bilateral eye PERRL, bilateral eye EOMI ENT: hearing grossly normal, normal pharynx, TMs + canals normal, uvula midline Neck: full range of motion, mild stiffness Respiratory: lungs clear, normal breath sounds, no rhonchi, no respiratory distress, no retraction, no accessory muscle use Cardiovascular : normal peripheral pulses, regular rate, rhythm, no edema, no gallop, no JVD, no murmur Gastrointestinal: normal bowel sounds, non tender, soft, no mass, no organomegaly, non-distended, no guarding, no hernia, no pulsatile mass, no rebound Genitourinary: no CVA tenderness Musculoskeletal: normal inspection Neurologic: oriented x3, responsive, 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 III-XII nml as tested, motor strength/ tone normal, sensory intact Skin: normal color, no rash, warm/dry, palpation normal, no rash Last 24 Hour Vital Signs Date Time Temp Pulse Resp B/P (MAP) Pulse Ox O2 Delivery O2 Flow Rate FiO2 10/03/17 19:24 103 20 Room Air 10/03/17 18:54 103 150/97 10/03/17 18:54 100.2 10/03/17 18:46 103 150/97 10/03/17 18:23 101.6 10/03/17 18:14 105 10/03/17 15:38 115 171/112 10/03/17 15:25 101.6 10/03/17 15:19 101.6 115 20 171/112 98 Room Air 10/03/17 14:49 110 18 167/110 95 Room Air 10/03/17 12:29 100.8 113 164/100 10/03/17 11:11 98.7 90 19 138/74 99 Room Air 10/03/17 10:55 100.5 111 23 161/92 Room Air 10/03/17 09:56 129 172/97 10/03/17 09:51 98.0 10/03/17 09:45 98.0 10/03/17 09:14 98.0 117 18 171/100 95 Room Air 10/03/17 09:07 171/100 10/03/17 07:48 98.0 110 18 176/98 96 Room Air 10/03/17 06:34 99.9 119 18 178/123 93 Room Air 10/03/17 06:16 99.9 119 18 178/123 93 Room Air Laboratory Tests Test 10/03/17 06:25 10/03/17 06:55 10/03/17 18:25 Urine Color Yellow Urine Appearance Clear Urine pH 6 (4.5-8.0) Urine Specific [place] 1.020 (1.005-1.035) Urine Protein 3+ (NEGATIVE) H Urine Glucose (UA) Negative (NEGATIVE) Urine Ketones 2+ (NEGATIVE) H Urine Occult Blood 5+ (NEGATIVE) H Urine Nitrite Negative (NEGATIVE) Urine Bilirubin Negative (NEGATIVE) Urine Urobilinogen Normal MG/DL (0.0-1.0) Urine Leukocyte Esterase Negative (NEGATIVE) Urine RBC 10-15 /HPF (0 - 2) H Urine WBC 0-2 /HPF (0 - 2) Urine Squamous Epithelial Cells Few /LPF (NONE/OCC) Urine Bacteria Few /HPF (NONE) Urine Mucus Few /LPF (NONE/OCC) H Urine HCG, Qualitative Negative Urine Opiates Screen Negative (NEGATIVE) Urine Barbiturates Screen Negative (NEGATIVE) Phencyclidine (PCP) Screen Negative (NEGATIVE) Urine Amphetamines Screen Negative (NEGATIVE) Urine Benzodiazepines Screen Negative (NEGATIVE) Urine Cocaine Screen Negative (NEGATIVE) Urine Marijuana (THC) Screen Positive (NEGATIVE) H White Blood Count 6.3 K/UL (4.8-10.8) Red Blood Count 4.03 M/UL (4.20-5.40) L Hemoglobin 11.7 G/DL (12.0-16.0) L Hematocrit 35.7 % (37.0-47.0) L Mean Corpuscular Volume 89 FL (80-99) Mean Corpuscular Hemoglobin 29.1 PG (27.0-31.0) Mean Corpuscular Hemoglobin Concent 32.9 G/DL (32.0-36.0) Red Cell Distribution Width 13.2 % (11.6-14.8) Platelet Count 275 K/UL (150-450) Mean Platelet Volume 7.6 FL (6.5-10.1) Neutrophils (%) (Auto) % (45.0-75.0) Lymphocytes (%) (Auto) % (20.0-45.0) Monocytes (%) (Auto) % (1.0-10.0) Eosinophils (%) (Auto) % (0.0-3.0) Basophils (%) (Auto) % (0.0-2.0) Differential Total Cells Counted 100 Neutrophils % (Manual) 90 % (45-75) H Lymphocytes % (Manual) 3 % (20-45) L Monocytes % (Manual) 6 % (1-10) Eosinophils % (Manual) 0 % (0-3) Basophils % (Manual) 1 % (0-2) Band Neutrophils 0 % (0-8) Platelet Estimate Adequate Platelet Morphology Normal Hypochromasia 1+ Anisocytosis 1+ Sodium Level 138 MMOL/L (136-145) Potassium Level 3.3 MMOL/L (3.5-5.1) L Chloride Level 104 MMOL/L (98-107) Carbon Dioxide Level 23 MMOL/L (21-32) Anion Gap 11 mmol/L (5-15) Blood Urea Nitrogen 7 mg/dL (7-18) Creatinine 0.9 MG/DL (0.55-1.30) Estimat Glomerular Filtration Rate > 60 mL/min (>60) Glucose Level 112 MG/DL (74-106) H Calcium Level 8.7 MG/DL (8.5-10.1) Total Bilirubin 0.4 MG/DL (0.2-1.0) Aspartate Amino Transf (AST/SGOT) 25 U/L (15-37) Alanine Aminotransferase (ALT/SGPT) 29 U/L (12-78) Alkaline Phosphatase 51 U/L (46-116) Total Protein 7.5 G/DL (6.4-8.2) Albumin 3.4 G/DL (3.4-5.0) Globulin 4.1 g/dL Albumin/Globulin Ratio 0.8 (1.0-2.7) L Lipase 79 U/L (73-393) Erythrocyte Sedimentation Rate Pending Troponin I 0.000 ng/mL (0.000-0.056) Anti-Nuclear Antibody Screen Pending [place] Nile Virus IgM Antibody Pending Influenza Virus Type A IgM Antibody Pending Influenza Virus Type B IgM Antibody Pending Microbiology Date/Time Source Procedure Growth Status 10/03/17 18:38 Nasal Not Otherwise Specified Influenza Types A,B Antigen (ROBYN) - Final Complete Height (Feet): 5 Height (Inches): 4.00 Weight (Pounds): 230 Medications Current Medications Medications (Trade) Dose Ordered Sig/[place] Route PRN Reason Start Time Stop Time Status Last Admin Dose Admin Acetaminophen (Tylenol) 650 mg Q4H PRN ORAL FEVER 10/03/17 13:45 11/02/17 13:44 Acetaminophen/ Butalbital/ Caffeine (Fioricet) 1 tab Q4HR PRN ORAL For moderate Pain/headache 10/03/17 17:45 11/02/17 17:44 10/03/17 18:53 Albuterol/ Ipratropium (Albuterol/ Ipratropium) 3 ml EVERY 4 HOURS PRN HHN Shortness of Breath 10/03/17 13:45 10/08/17 13:44 Albuterol/ Ipratropium (Albuterol/ Ipratropium) 3 ml Q6HRT HHN 10/03/17 19:00 10/08/17 18:59 Amlodipine Besylate (Norvasc) 5 mg DAILY ORAL 10/03/17 18:45 11/02/17 18:44 10/03/17 18:54 Diltiazem HCl (Cardizem) 10 mg EVERY HOUR PRN IV heart rate more than 120, 10/03/17 13:45 11/02/17 13:44 Enalaprilat (Vasotec) 2.5 mg EVERY 6 HOURS PRN IV sbp more than 160 10/03/17 15:30 11/02/17 15:29 Heparin Sodium (Porcine) (Heparin 5000 units/ml) 5,000 units EVERY 12 HOURS SUBQ 10/03/17 21:00 11/02/17 20:59 Hydromorphone HCl (Dilaudid) 1 mg Q4H PRN IVP For Severe Pain 10/03/17 17:45 10/10/17 17:29 10/03/17 17:53 Labetalol HCl (Normodyne) 20 mg EVERY HOUR PRN IV sbp more than 160 10/03/17 13:45 11/02/17 13:44 10/03/17 15:38 Lisinopril (Prinivil) 20 mg DAILY ORAL 10/03/17 20:00 11/02/17 19:59 Magnesium Oxide (Mag-Ox 400mg) 400 mg BID ORAL 10/03/17 18:00 11/02/17 17:59 10/03/17 17:53 Nitroglycerin (Ntg) 0.4 mg Q5MIN X 3 DOSES PRN SL Prn Chest Pain 10/03/17 15:30 11/02/17 15:29 Nortriptyline HCl (Pamelor) 25 mg BEDTIME ORAL 10/03/17 21:00 11/02/17 20:59 Ondansetron HCl (Zofran) 4 mg Q6H PRN IVP Nausea & Vomiting 10/03/17 13:45 11/02/17 13:44 Pantoprazole (Protonix) 40 mg DAILY ORAL 10/04/17 09:00 11/03/17 08:59 Polyethylene Glycol (Miralax) 17 gm DAILYPRN PRN ORAL Constipation 10/03/17 13:45 11/02/17 13:44 Promethazine HCl/ Codeine (Phenergan with Codeine) 5 ml Q4H PRN ORAL For Cough 10/03/17 13:45 11/02/17 13:44 Temazepam (Restoril) 15 mg HSPRN PRN ORAL Insomnia 10/03/17 13:45 10/10/17 13:44 Assessment/Plan Assessment/Plan Abx: None Assessment: Viral syndrome- suspect Flu despite neg rapid test influenza neg CXR no acute disease RIVERA- migraine vs aseptic meningitis vs 2ry to uncontrolled HTN- lower suspicion for bacterial meningitis -CT head : Impression: No mass effect, edema or acute bleed. Fever -no leukocytosis -u/a no pyuria HTN urgency Migraine Headaches HTN Plan: -Start empiric Tamiflu -droplets precautions -Will start empiric IV Vancomycin and Ceftriaxone, although lower suspicion for bacterial meningitis -f/u CRP -Will recommend lumbar puncture. -CSF analysis, cx, WNV ab -low threshold for CT head -f/u cx -Monitor CBC/BMP, temperatures Discussed with Kathleen Ortez M.D. Oct 03, 2017 19:32
[2017-10-03] MEDS: Albuterol/Ipratropium 3ml neb HHN SCH (20:11)
[2017-10-03] MEDS ORDERED: cefTRIAXone 2 GM in D5W 55 ML IVPB SCH (21:00)
[2017-10-03] MEDS: Nortriptyline 25mg cap ORAL SCH (21:57)
[2017-10-03] MEDS: Lisinopril 20mg tab ORAL SCH (21:57)
[2017-10-03] MEDS ORDERED: Vancomycin 1.5 GM/D5W 250ML IVPB ONE (22:00)
[2017-10-03] MEDS: Oseltamivir 75mg cap ORAL SCH (22:05)
[2017-10-03] MEDS: cefTRIAXone 2 GM in NS 55 ML IVPB SCH (22:05)
[2017-10-03] MEDS: Heparin 5000 units/ml inj SUBQ SCH (22:05)
[2017-10-04] VITALS: BP 155/102
--- NOTE | 2017-10-04 00:15 | Consultation ---
DATE OF CONSULTATION: 10/03/2017 NEUROLOGICAL CONSULTATION CONSULTING PHYSICIAN: Ayden العراقي M.D. REQUESTING PHYSICIAN: Katia Avery M.D. HISTORY OF PRESENT ILLNESS: The patient is a 42-year-old who was seen in neurological consultation to evaluate intractable headache, fevers, cough, and sneezing. The patient informed me that she was in stable condition about two to three days prior to admission when she started to develop fevers, coughing, generalized aches and pains as well as increased severe headache which resembled "usual " migraine headaches usually starting in occipital region spreading to the temporal parietal area, becoming diffuse with sharp and shooting pains, pressure sensation. In addition, she had episodes of diarrhea. As her symptoms progressed, she signed into emergency room. On admission, blood pressure 178/123, heart rate of 119, temperature 99.9. CAT scan of the brain was negative. Chest x-ray, no acute findings. Laboratory work was obtained, this revealed mild anemia, hemoglobin 11.7, hematocrit 35.7. Urinalysis with 2+ ketones and 3+ protein. Her chemistry panel with blood sugar 112. Potassium 3.3. Toxicology panel positive only for marijuana. Following admission until present, there was no further changes in her condition. Treatment prior to admission includes Xanax 0.25 t.i.d. p.r.n., Fioricet one tablet q. 6 h p.r.n., furosemide, [place] p.r.n., ibuprofen, Zofran p.r.n., Imitrex 50 mg. The patient now informs me that she developed a severe intermittent headaches in the last years coinciding with multiple and sickness in her family. She continued to take care of members of family. Headaches are intermittent at least one or two times per month, usually without aura, starts headaches in the occipital region and sparing to whole head, may last up to two to three days. She tried Imitrex felt no improvement. She is using Motrin which gives temporary improvement, Tylenol with no effect. The patient has history of viral meningitis in the past. She has history of hypertension and history of migraine. Family history remarkable for mother suffering from migraine. Following current admission, the patient is maintained on Cardizem, Benadryl as needed, albuterol, Vasotec, subcutaneous heparin, hydralazine, Toradol, labetalol, morphine sulfate for pain management, Zofran, Phenergan, and temazepam. ALLERGIES: Shellfish. REVIEW OF SYSTEMS: Generalized aches, persistent severe headache, nausea, episodes of diarrhea, coughing, generalized aches and pains. No abdominal pain or discomfort. No incontinence. PHYSICAL EXAMINATION: GENERAL: A well-developed, moderately obese female, not in acute distress, lying in bed comfortably. VITAL SIGNS: Unstable with blood pressure 172/112, heart rate of 115, temperature 101.6. HEENT: Normocephalic. No evidence of trauma. Eyes, ears, and throat are clear. Face is somewhat flushed. NECK: Supple. No meningeal signs. Peripheral pulses 1+ symmetric. SKIN: Unremarkable. No rash. MENTAL STATUS: The patient is alert and oriented x3 with no evidence of aphasia or apraxia. Cognitive function normal. CRANIAL NERVE II: Pupils both responding to light and accommodation. Extraocular movements intact. No nystagmus. CRANIAL NERVE V: Normal corneal responses. CRANIAL NERVE VII: No facial asymmetry. CRANIAL NERVE VIII: Normal hearing. CRANIAL NERVES IX THROUGH XII: Tongue is in midline. Symmetric palate elevation. MOTOR EXAMINATION: Normal muscle tone. Strength 5/5 in all extremities. No involuntary movement. Deep tendon reflexes 1+ symmetric with downgoing toes on both sides. SENSORY EXAMINATION: Normal to pinprick and light touch. Gait not tested. IMPRESSION: 1. Acute viral syndrome. 2. Hypertension out of control. 3. Migraine exacerbation. 4. Rule out depression. RECOMMENDATIONS: 1. ID assessment, the patient to start on acyclovir. 2. Spinal tap as per ID. 3. Maintain blood pressure control. 4. SY, sedimentation rate, CRP, influenza titers. 5. Urine and stool cultures and sensitivity. 6. Respiratory precaution. 7. Fiorinal one tablet t.i.d. p.r.n. for headaches. 8. . 9. When stable, we will consider starting preventive treatment with Topamax. Thank you for allowing me to see this interesting patient in neurological consultation Ayden العراقي M.D. DR: Jax JOB#: [id number] CC:
[2017-10-04] MEDS: Albuterol/Ipratropium 3ml neb HHN SCH ×4 (01:37→21:05)
[2017-10-04 04:00] VITALS: BP 134/74
--- NOTE | 2017-10-04 06:00 | Consultation ---
DATE OF CONSULTATION: 10/03/2017 CARDIOLOGY CONSULTATION CONSULTING PHYSICIAN: Brigido Negro M.D. REFERRING PHYSICIAN: Katia Avery M.D. REASON FOR REFERRAL: Hypertensive urgency. HISTORY OF PRESENT ILLNESS: This is a middle-aged female with a history of hypertension. She apparently stopped taking her medications because she did not think it was necessary. She has had upper respiratory tract infection with cough and congestion for the past four days. Also noted that family members are ill in the house. She did not get the flu shot. Nevertheless, she has a usual migraine that started approximately three days ago, but the pain has become more severe worse and coughing and wheezing, and because of persistent symptoms, she finally came to the emergency room. She was noted to have significant elevated blood pressure. She really has not had any chest pain or pressure. There is no PND, but she is still congested and coughing. She uses three pillows chronically. She has occasional dizziness. No lightheadedness. She has no palpitations. PAST MEDICAL HISTORY: Positive for high blood pressure. No history of diabetes. No heart attack. No cancer. No stroke. No hepatitis, tuberculosis, asthma, emphysema. No ulcers, kidney problems, liver problems, thyroid problems, anemia, or arthritis. ALLERGIES: She is allergic to shellfish only. MEDICATIONS: No medications. SOCIAL HISTORY: Does not smoke. Does not drink alcoholic beverages. She uses marijuana. REVIEW OF SYSTEMS: GASTROINTESTINAL: She has had nausea and vomiting, which are part of her migraine. She also has diarrhea. No bloody or black stool. GENITOURINARY: Negative. PULMONARY: Positive for coughing and wheezing. CONSTITUTIONAL: Negative. NEUROLOGICAL: Negative. PHYSICAL EXAMINATION: GENERAL: Shows to be overweight, middle-aged female, in no respiratory distress. She sounds nasally congested. VITAL SIGNS: Blood pressure anywhere between 164/100 to 171/100, heart rate 105 to 115 range, and temperature 101.6. NECK: Supple. No jugular venous distention. LUNGS: Appear to be a few expiratory wheezes. No crackles. CARDIAC: Regular rate and rhythm. No heaves, thrills, or gallops noted. ABDOMEN: Soft and nontender. Positive bowel sounds. Obese. EXTREMITIES: There is no edema, clubbing, or cyanosis. NEUROLOGICAL: She is awake, alert, and responsive, in no respiratory distress. LABORATORY AND DIAGNOSTIC DATA: Laboratory values, white count of 6.3, hemoglobin 11.7, and platelet count of 275. Sodium is 138, potassium 3.3, chloride 104, bicarbonate 23, BUN of 7, creatinine 0.9, and glucose 112. Liver function tests are normal. Lipase is 79. Toxicology screen positive for marijuana. Urinalysis 10 to 15 RBCs, 0 to 2 WBCs. X-rays of her chest basically no acute findings and she had a CT scan of her head that showed no mass effect, edema, or acute problems. Her EKG is sinus rhythm with nonspecific T-wave changes. ASSESSMENT AND PLAN: 1. Hypertension, poorly controlled. 2. Medication noncompliance. 3. Upper respiratory tract infection. 4. Obesity. 5. Migraines. Dr. Avery, this patient was seen in cardiac consultation. The patient's blood pressure is poorly controlled. She has been on a combination of hydralazine and hydrochlorothiazide, which are rather very old medications. I think she should be started back on newer medications. I would start her on some enalapril for the time being, maybe 5 mg and hydrochlorothiazide 10 mg and adjust dose upward gradually to allow her time to acclimate to new blood pressure. I am not sure how her blood pressure has been this way. Neurologist, Dr. العراقي has seen the patient in conjunction with the headache and neck pain that she is having. Viral studies are ordered. Brigido Negro M.D. DR: WILBER JOB#: [id number] CC:
[2017-10-04 08:00] VITALS: BP 133/75
[2017-10-04 08:28] LABS: BASOPHILS % (AUTO) 1.5 % (0.0-2.0); HEMATOCRIT 30.6 % (37.0-47.0); HEMOGLOBIN 10.1 G/DL (12.0-16.0); LYMPHOCYTES % (AUTO) 16.4 % (20.0-45.0); MEAN CORPUSCULAR VOLUME 89 FL (80-99); MONOCYTES % (AUTO) 13.2 % (1.0-10.0); PLATELET COUNT 210 K/UL (150-450); RED BLOOD COUNT 3.46 M/UL (4.20-5.40); RED CELL DISTRIBUTION WIDTH 13.4 % (11.6-14.8); WHITE BLOOD COUNT 3.5 K/UL (4.8-10.8)
[2017-10-04] MEDS: cefTRIAXone 2 GM in NS 55 ML IVPB SCH ×2 (08:32→21:27)
[2017-10-04] MEDS: Lisinopril 20mg tab ORAL SCH (08:33)
[2017-10-04] MEDS: Heparin 5000 units/ml inj SUBQ SCH ×2 (08:35→21:27)
[2017-10-04] MEDS: HYDROmorphone 1mg/ml Carpuject IVP PRN ×3 (08:38→22:47)
[2017-10-04] MEDS: Magnesium Oxide 400mg tab ORAL SCH ×2 (08:41→18:00)
[2017-10-04 08:52] LABS: CHOLESTEROL 156 MG/DL (< 200); HDL CHOLESTEROL 86 MG/DL (40-60); TRIGLYCERIDES 57 MG/DL (30-150)
--- NOTE | 2017-10-04 09:24 | Consultation ---
History of Present Illness General Date patient seen: Oct 04, 2017 Time patient seen: 08:30 Chief Complaint: headache Reason for Consultation: inpatient management Present Illness HPI 42 y/o female with PMF of HTN, obesity, migraine headaches, presented to ED with 3 days onset of diarrhea, headaches (similar to her migraine headaches) , cough. +photophobia/phonophobia, neck pain, body aches, mild sore throat. Recent sick contacts- her kids with cold symptoms. Denied vomiting, nausea, No fall/trauma, No rashes. Upon presentation in ED found to have BP -178/123 VS revealed low grade fever-99.9 and tachycardia-130th ECG with ST, no acute ischemic changes troponin negative UA negative CXR negative rapid influenza screen negative test negative No leukocytosis K-3.3, otherwise stable renal parameters and lytes Mild anemia-11.7/35.7 Patient was admitted for further management Allergies: Coded Allergies: SHELLFISH DERIVED (Unverified Allergy, Unknown, 11/12/15) Medication History Scheduled Acetamin/Butalbital/Caffeine* (Fioricet*), 1 TAB ORAL Q6H Famotidine (Pepcid), 20 MG ORAL DAILY Furosemide* (Lasix*), 40 MG ORAL DAILY, (Reported) No Known Medications* (NKM - No Known Medications*), 0 ., (Reported) No Known Medications* (NKM - No Known Medications*), 0 ., (Reported) Sulfacetamide Sodium (Bleph-10), 2 DROP OP Q6HR Sumatriptan Succinate* (Imitrex*), 50 MG ORAL DAILY PRN MIGRAINE Scheduled PRN Alprazolam* (Xanax*), 0.25 MG ORAL TID PRN for For Anxiety Hydrocodone Bit/Acetaminophen 5-325* ([place] 5-325*), 1 TAB ORAL Q4H PRN for For Pain Ibuprofen* (Motrin*), 600 MG ORAL Q6H PRN for For Pain Naphazoline Hcl/Phenir Mal (Naphcon-A Eye Drops), 2 DROP OP THREE TIMES A DAY PRN for Itching Ondansetron Odt* (Zofran Odt*), 4 MG ORAL Q8H PRN for Nausea & Vomiting Ondansetron* (Zofran*), 4 MG ORAL Q6H PRN for Nausea & Vomiting Tramadol Hcl* (Ultram*), 50 MG ORAL Q6H PRN for For Pain Patient History History Provided By: Patient Healthcare decision maker Resuscitation status Full Code Advanced Directive on File Past Medical/Surgical History Past Medical/Surgical History: (1) Migraine headache (2) Obesity (BMI 30-39.9) (3) HTN (hypertension) Review of Systems Constitutional: Reports: fever, malaise, weakness Eye: Reports: no symptoms ENT: Reports: see HPI Cardiovascular: Reports: other - chest discomfort Gastrointestinal: Reports: no symptoms Genitourinary: Reports: no symptoms Musculoskeletal: Reports: no symptoms Skin: Reports: no symptoms Psychiatric: Reports: no symptoms Neurological: Reports: headache Endocrine: Reports: no symptoms Hematologic/Lymphatic: Reports: no symptoms Physical Exam General Appearance: alert, obese, other - mild distress Lines, tubes and drains: peripheral HEENT: normocephalic, atraumatic, anicteric, mucous membranes moist, PERRL Neck: non-tender, supple - no meningeal signs Respiratory/Chest: chest wall non-tender, lungs clear, no respiratory distress , no accessory muscle use Cardiovascular/Chest: normal peripheral pulses, regular rhythm, tachycardia - ST on tele Abdomen: normal bowel sounds, non tender - obese, soft Neurologic: golf ball marker II-XII grossly normal, no motor/sensory deficits, alert, oriented x 3, responsive Musculoskeletal: normal muscle bulk Last 24 Hour Vital Signs Date Time Temp Pulse Resp B/P (MAP) Pulse Ox O2 Delivery O2 Flow Rate FiO2 10/04/17 09:15 95 20 95 Room Air 10/04/17 08:39 107 133/75 10/04/17 08:33 134/74 10/04/17 04:00 107 10/04/17 04:00 99.9 91 134/74 94 Room Air 10/04/17 01:52 103 20 98 Room Air 21 10/04/17 01:37 21 10/04/17 01:36 103 20 98 Room Air 10/04/17 00:00 111 10/04/17 00:00 97.2 85 155/102 94 Room Air 10/03/17 21:57 149/102 10/03/17 20:35 103 20 98 Room Air 21 10/03/17 20:10 21 10/03/17 20:10 103 20 98 Room Air 10/03/17 20:00 98.4 83 149/102 95 Room Air 10/03/17 19:55 102 10/03/17 19:52 98.4 10/03/17 19:24 103 20 Room Air 10/03/17 18:54 103 150/97 10/03/17 18:54 100.2 10/03/17 18:46 103 150/97 10/03/17 18:23 101.6 10/03/17 18:14 105 10/03/17 15:38 115 171/112 10/03/17 15:25 101.6 10/03/17 15:19 101.6 115 20 171/112 98 Room Air 10/03/17 14:49 110 18 167/110 95 Room Air 10/03/17 12:29 100.8 113 164/100 10/03/17 11:11 98.7 90 19 138/74 99 Room Air 10/03/17 10:55 100.5 111 23 161/92 Room Air 10/03/17 09:56 129 172/97 10/03/17 09:51 98.0 10/03/17 09:45 98.0 Laboratory Tests Test 10/03/17 18:25 10/04/17 06:20 Erythrocyte Sedimentation Rate 47 MM/HR (0-20) H Troponin I 0.000 ng/mL (0.000-0.056) 0.000 ng/mL (0.000-0.056) Anti-Nuclear Antibody Screen Pending West Nile Virus IgM Antibody Pending Influenza Virus Type A IgM Antibody Pending Influenza Virus Type B IgM Antibody Pending White Blood Count 3.5 K/UL (4.8-10.8) L Red Blood Count 3.46 M/UL (4.20-5.40) L Hemoglobin 10.1 G/DL (12.0-16.0) L Hematocrit 30.6 % (37.0-47.0) L Mean Corpuscular Volume 89 FL (80-99) Mean Corpuscular Hemoglobin 29.2 PG (27.0-31.0) Mean Corpuscular Hemoglobin Concent 32.9 G/DL (32.0-36.0) Red Cell Distribution Width 13.4 % (11.6-14.8) Platelet Count 210 K/UL (150-450) Mean Platelet Volume 7.7 FL (6.5-10.1) Neutrophils (%) (Auto) 69.0 % (45.0-75.0) Lymphocytes (%) (Auto) 16.4 % (20.0-45.0) L Monocytes (%) (Auto) 13.2 % (1.0-10.0) H Eosinophils (%) (Auto) 0.0 % (0.0-3.0) Basophils (%) (Auto) 1.5 % (0.0-2.0) Prothrombin Time 10.3 SEC (9.30-11.50) Prothromb Time International Ratio 1.0 (0.9-1.1) Activated Partial Thromboplast Time 30 SEC (23-33) C-Reactive Protein, Quantitative 3.9 mg/dL (0.00-0.90) H Triglycerides Level 57 MG/DL (30-150) Cholesterol Level 156 MG/DL (< 200) LDL Cholesterol 66 mg/dL (<100) HDL Cholesterol 86 MG/DL (40-60) H Cholesterol/HDL Ratio 1.8 (3.3-4.4) L Thyroid Stimulating Hormone (TSH) 0.367 uiU/mL (0.358-3.740) HIV (1&2) Antibody Rapid Pending Microbiology Date/Time Source Procedure Growth Status 10/03/17 18:38 Nasal Not Otherwise Specified Influenza Types A,B Antigen (ROBYN) - Final Complete Height (Feet): 5 Height (Inches): 4.00 Weight (Pounds): 230 Medications Current Medications Medications (Trade) Dose Ordered Sig/Katya Route PRN Reason Start Time Stop Time Status Last Admin Dose Admin Acetaminophen (Tylenol) 650 mg Q4H PRN ORAL FEVER 10/03/17 13:45 11/02/17 13:44 Acetaminophen/ Butalbital/ Caffeine (Fioricet) 1 tab Q4HR PRN ORAL For moderate Pain/headache 10/03/17 17:45 11/02/17 17:44 10/03/17 18:53 Albuterol/ Ipratropium (Albuterol/ Ipratropium) 3 ml EVERY 4 HOURS PRN HHN Shortness of Breath 10/03/17 13:45 10/08/17 13:44 Albuterol/ Ipratropium (Albuterol/ Ipratropium) 3 ml Q6HRT HHN 10/03/17 19:00 10/08/17 18:59 10/04/17 09:14 Amlodipine Besylate (Norvasc) 5 mg DAILY ORAL 10/03/17 18:45 11/02/17 18:44 10/04/17 08:39 Ceftriaxone Sodium 2 gm/ Sodium Chloride 55 ml @ 110 mls/hr EVERY 12 HOURS IVPB 10/03/17 21:00 10/10/17 23:59 10/04/17 08:32 Diltiazem HCl (Cardizem) 10 mg EVERY HOUR PRN IV heart rate more than 120, 10/03/17 13:45 11/02/17 13:44 Enalaprilat (Vasotec) 2.5 mg EVERY 6 HOURS PRN IV sbp more than 160 10/03/17 15:30 11/02/17 15:29 Heparin Sodium (Porcine) (Heparin 5000 units/ml) 5,000 units EVERY 12 HOURS SUBQ 10/03/17 21:00 11/02/17 20:59 10/04/17 08:35 Hydromorphone HCl (Dilaudid) 1 mg Q4H PRN IVP For Severe Pain 10/03/17 17:45 10/10/17 17:29 10/04/17 08:38 Labetalol HCl (Normodyne) 20 mg EVERY HOUR PRN IV sbp more than 160 10/03/17 13:45 11/02/17 13:44 10/03/17 15:38 Lisinopril (Prinivil) 20 mg DAILY ORAL 10/03/17 20:00 11/02/17 19:59 10/04/17 08:33 Magnesium Oxide (Mag-Ox 400mg) 400 mg BID ORAL 10/03/17 18:00 11/02/17 17:59 10/04/17 08:41 Nitroglycerin (Ntg) 0.4 mg Q5MIN X 3 DOSES PRN SL Prn Chest Pain 10/03/17 15:30 11/02/17 15:29 Nortriptyline HCl (Pamelor) 25 mg BEDTIME ORAL 10/03/17 21:00 11/02/17 20:59 10/03/17 21:57 Ondansetron HCl (Zofran) 4 mg Q6H PRN IVP Nausea & Vomiting 10/03/17 13:45 11/02/17 13:44 10/04/17 08:41 Oseltamivir Phosphate (Tamiflu) 75 mg TWICE A DAY ORAL 10/03/17 19:45 10/08/17 23:59 10/03/17 22:05 Pantoprazole (Protonix) 40 mg DAILY ORAL 10/04/17 09:00 11/03/17 08:59 10/04/17 08:32 Polyethylene Glycol (Miralax) 17 gm DAILYPRN PRN ORAL Constipation 10/03/17 13:45 11/02/17 13:44 Promethazine HCl/ Codeine (Phenergan with Codeine) 5 ml Q4H PRN ORAL For Cough 10/03/17 13:45 11/02/17 13:44 Temazepam (Restoril) 15 mg HSPRN PRN ORAL Insomnia 10/03/17 13:45 10/10/17 13:44 Vancomycin HCl (Vanco rx to dose) 1 ea DAILY PRN MISC Per rx protocol 10/03/17 20:15 11/02/17 20:14 Vancomycin HCl/ Dextrose 250 ml @ 166.667 mls/hr Q12H IVPB 10/04/17 10:00 10/09/17 23:59 Assessment/Plan Assessment/Plan ASSESSMENT acute viral syndrome Probably influenza HTN urgency migraine RIVERA r/o viral meningitis Obesity anemia PLAN OF CARE Tele empiric anx and Tamiflu Droplet precautions rapid influenza negative, check influenza Ag as per ID a/tussive prn LP with CSF analysis CT head no acute IC pathology neuro follows urine tox+ marijuana BP management with CCB and CORINA and uptitrate as needed Cardio follows troponin x 2 negative ECHO with pEF 55% and RVSP of 22, O2 HHN prn DVT GI prophylaxis pain management case discussed and evaluated by supervising physician Cuauhtemoc (Abebe)Rosalee NP Oct 04, 2017 09:24
--- NOTE | 2017-10-04 09:54 | Infectious Diseases Prog Note ---
Assessment/Plan Assessment/Plan Abx: None Assessment: Viral syndrome- suspect Flu despite neg rapid test influenza neg CXR no acute disease -CRP 3.9 RIVERA-likely 2ry to aseptic meningitis l r/o migraine headache; possible uncontrolled HTN contributing- lower suspicion for bacterial meningitis -CT head : Impression: No mass effect, edema or acute bleed. Fever, improving -no leukocytosis -u/a no pyuria Mild leukopenia HTN urgency Migraine Headaches HTN Plan: -Continue empiric Tamiflu #2 -droplets precautions -Continue empiric IV Vancomycin and Ceftriaxone #2, although lower suspicion for bacterial meningitis -Neuro to do LP -CSF analysis, cx, WNV ab -f/u cx -Monitor CBC/BMP, temperatures -droplets precautions Discussed with RN, Dr Avery and Dr Fletcher Subjective Allergies: Coded Allergies: SHELLFISH DERIVED (Unverified Allergy, Unknown, 11/12/15) Subjective afebrile in >12hrs mild leukopenia Objective Vital Signs Last 24 Hour Vital Signs Date Time Temp Pulse Resp B/P (MAP) Pulse Ox O2 Delivery O2 Flow Rate FiO2 10/04/17 09:15 95 20 95 Room Air 10/04/17 08:39 107 133/75 10/04/17 08:33 134/74 10/04/17 04:00 107 10/04/17 04:00 99.9 91 134/74 94 Room Air 10/04/17 01:52 103 20 98 Room Air 21 10/04/17 01:37 21 10/04/17 01:36 103 20 98 Room Air 10/04/17 00:00 111 10/04/17 00:00 97.2 85 155/102 94 Room Air 10/03/17 21:57 149/102 10/03/17 20:35 103 20 98 Room Air 21 10/03/17 20:10 21 10/03/17 20:10 103 20 98 Room Air 10/03/17 20:00 98.4 83 149/102 95 Room Air 10/03/17 19:55 102 10/03/17 19:52 98.4 10/03/17 19:24 103 20 Room Air 10/03/17 18:54 103 150/97 10/03/17 18:54 100.2 10/03/17 18:46 103 150/97 10/03/17 18:23 101.6 10/03/17 18:14 105 10/03/17 15:38 115 171/112 10/03/17 15:25 101.6 10/03/17 15:19 101.6 115 20 171/112 98 Room Air 10/03/17 14:49 110 18 167/110 95 Room Air 10/03/17 12:29 100.8 113 164/100 10/03/17 11:11 98.7 90 19 138/74 99 Room Air 10/03/17 10:55 100.5 111 23 161/92 Room Air 10/03/17 09:56 129 172/97 10/03/17 09:51 98.0 Height (Feet): 5 Height (Inches): 4.00 Weight (Pounds): 230 Objective General Appearance: no apparent distress Head: normocephalic, atraumatic Eyes: bilateral eye PERRL, bilateral eye EOMI ENT: hearing grossly normal, normal pharynx, TMs + canals normal, uvula midline Neck: full range of motion, supple, no meningismus, no bony tend Respiratory: lungs clear, normal breath sounds, no rhonchi, no respiratory distress, no retraction, no accessory muscle use Cardiovascular normal peripheral pulses, regular rate, rhythm, no edema, no gallop, no JVD, no murmur Gastrointestinal: normal bowel sounds, non tender, soft, no mass, no organomegaly, non-distended, no guarding, no hernia, no pulsatile mass, no rebound Genitourinary: no CVA tenderness Musculoskeletal: normal inspection Skin: normal color, no rash, warm/dry, palpation Microbiology Date/Time Source Procedure Growth Status 10/03/17 18:38 Nasal Not Otherwise Specified Influenza Types A,B Antigen (ROBYN) - Final Complete Laboratory Tests Test 10/03/17 18:25 10/04/17 06:20 Erythrocyte Sedimentation Rate 47 MM/HR (0-20) H Troponin I 0.000 ng/mL (0.000-0.056) 0.000 ng/mL (0.000-0.056) Anti-Nuclear Antibody Screen Pending West Nile Virus IgM Antibody Pending Influenza Virus Type A IgM Antibody Pending Influenza Virus Type B IgM Antibody Pending White Blood Count 3.5 K/UL (4.8-10.8) L Red Blood Count 3.46 M/UL (4.20-5.40) L Hemoglobin 10.1 G/DL (12.0-16.0) L Hematocrit 30.6 % (37.0-47.0) L Mean Corpuscular Volume 89 FL (80-99) Mean Corpuscular Hemoglobin 29.2 PG (27.0-31.0) Mean Corpuscular Hemoglobin Concent 32.9 G/DL (32.0-36.0) Red Cell Distribution Width 13.4 % (11.6-14.8) Platelet Count 210 K/UL (150-450) Mean Platelet Volume 7.7 FL (6.5-10.1) Neutrophils (%) (Auto) 69.0 % (45.0-75.0) Lymphocytes (%) (Auto) 16.4 % (20.0-45.0) L Monocytes (%) (Auto) 13.2 % (1.0-10.0) H Eosinophils (%) (Auto) 0.0 % (0.0-3.0) Basophils (%) (Auto) 1.5 % (0.0-2.0) Prothrombin Time 10.3 SEC (9.30-11.50) Prothromb Time International Ratio 1.0 (0.9-1.1) Activated Partial Thromboplast Time 30 SEC (23-33) C-Reactive Protein, Quantitative 3.9 mg/dL (0.00-0.90) H Triglycerides Level 57 MG/DL (30-150) Cholesterol Level 156 MG/DL (< 200) LDL Cholesterol 66 mg/dL (<100) HDL Cholesterol 86 MG/DL (40-60) H Cholesterol/HDL Ratio 1.8 (3.3-4.4) L Thyroid Stimulating Hormone (TSH) 0.367 uiU/mL (0.358-3.740) HIV (1&2) Antibody Rapid Pending Current Medications Medications (Trade) Dose Ordered Sig/Katya Route PRN Reason Start Time Stop Time Status Last Admin Dose Admin Acetaminophen (Tylenol) 650 mg Q4H PRN ORAL FEVER 10/03/17 13:45 11/02/17 13:44 Acetaminophen/ Butalbital/ Caffeine (Fioricet) 1 tab Q4HR PRN ORAL For moderate Pain/headache 10/03/17 17:45 11/02/17 17:44 10/03/17 18:53 Albuterol/ Ipratropium (Albuterol/ Ipratropium) 3 ml EVERY 4 HOURS PRN HHN Shortness of Breath 10/03/17 13:45 10/08/17 13:44 Albuterol/ Ipratropium (Albuterol/ Ipratropium) 3 ml Q6HRT HHN 10/03/17 19:00 10/08/17 18:59 10/04/17 09:14 Amlodipine Besylate (Norvasc) 5 mg DAILY ORAL 10/03/17 18:45 11/02/17 18:44 10/04/17 08:39 Ceftriaxone Sodium 2 gm/ Sodium Chloride 55 ml @ 110 mls/hr EVERY 12 HOURS IVPB 10/03/17 21:00 10/10/17 23:59 10/04/17 08:32 Diltiazem HCl (Cardizem) 10 mg EVERY HOUR PRN IV heart rate more than 120, 10/03/17 13:45 11/02/17 13:44 Enalaprilat (Vasotec) 2.5 mg EVERY 6 HOURS PRN IV sbp more than 160 10/03/17 15:30 11/02/17 15:29 Heparin Sodium (Porcine) (Heparin 5000 units/ml) 5,000 units EVERY 12 HOURS SUBQ 10/03/17 21:00 11/02/17 20:59 10/04/17 08:35 Hydromorphone HCl (Dilaudid) 1 mg Q4H PRN IVP For Severe Pain 10/03/17 17:45 10/10/17 17:29 10/04/17 08:38 Labetalol HCl (Normodyne) 20 mg EVERY HOUR PRN IV sbp more than 160 10/03/17 13:45 11/02/17 13:44 10/03/17 15:38 Lisinopril (Prinivil) 20 mg DAILY ORAL 10/03/17 20:00 11/02/17 19:59 10/04/17 08:33 Magnesium Oxide (Mag-Ox 400mg) 400 mg BID ORAL 10/03/17 18:00 11/02/17 17:59 10/04/17 08:41 Nitroglycerin (Ntg) 0.4 mg Q5MIN X 3 DOSES PRN SL Prn Chest Pain 10/03/17 15:30 11/02/17 15:29 Nortriptyline HCl (Pamelor) 25 mg BEDTIME ORAL 10/03/17 21:00 11/02/17 20:59 10/03/17 21:57 Ondansetron HCl (Zofran) 4 mg Q6H PRN IVP Nausea & Vomiting 10/03/17 13:45 11/02/17 13:44 10/04/17 08:41 Oseltamivir Phosphate (Tamiflu) 75 mg TWICE A DAY ORAL 10/03/17 19:45 10/08/17 23:59 10/03/17 22:05 Pantoprazole (Protonix) 40 mg DAILY ORAL 10/04/17 09:00 11/03/17 08:59 10/04/17 08:32 Polyethylene Glycol (Miralax) 17 gm DAILYPRN PRN ORAL Constipation 10/03/17 13:45 11/02/17 13:44 Promethazine HCl/ Codeine (Phenergan with Codeine) 5 ml Q4H PRN ORAL For Cough 10/03/17 13:45 11/02/17 13:44 Temazepam (Restoril) 15 mg HSPRN PRN ORAL Insomnia 10/03/17 13:45 10/10/17 13:44 Vancomycin HCl (Vanco rx to dose) 1 ea DAILY PRN MISC Per rx protocol 10/03/17 20:15 11/02/17 20:14 Vancomycin HCl/ Dextrose 250 ml @ 166.667 mls/hr Q12H IVPB 10/04/17 10:00 10/09/17 23:59 Kathleen Chavez M.D. Oct 04, 2017 09:54
[2017-10-04] MEDS: Oseltamivir 75mg cap ORAL SCH ×2 (10:46→18:35)
[2017-10-04] MEDS: Vancomycin 1250mg/D5W 250ml IVPB SCH ×2 (10:46→22:46)
[2017-10-04 12:00] VITALS: BP 108/70
--- NOTE | 2017-10-04 13:05 | Neurology Progress Note ---
Interim History Interim History ROS Limited/Unobtainable: No Complaints: severe RIVERA, cough, aches/pain Events: no change Objective Physical Exam Last Vital Signs Date Time Temp Pulse Resp B/P (MAP) Pulse Ox O2 Delivery O2 Flow Rate FiO2 10/04/17 12:00 98.8 104 20 108/70 97 Room Air 10/04/17 09:15 21 Laboratory Tests Test 10/03/17 18:25 10/04/17 06:20 Erythrocyte Sedimentation Rate 47 MM/HR (0-20) H Troponin I 0.000 ng/mL (0.000-0.056) 0.000 ng/mL (0.000-0.056) Anti-Nuclear Antibody Screen Pending West Nile Virus IgM Antibody Pending Pending Influenza Virus Type A IgM Antibody Pending Influenza Virus Type B IgM Antibody Pending White Blood Count 3.5 K/UL (4.8-10.8) L Red Blood Count 3.46 M/UL (4.20-5.40) L Hemoglobin 10.1 G/DL (12.0-16.0) L Hematocrit 30.6 % (37.0-47.0) L Mean Corpuscular Volume 89 FL (80-99) Mean Corpuscular Hemoglobin 29.2 PG (27.0-31.0) Mean Corpuscular Hemoglobin Concent 32.9 G/DL (32.0-36.0) Red Cell Distribution Width 13.4 % (11.6-14.8) Platelet Count 210 K/UL (150-450) Mean Platelet Volume 7.7 FL (6.5-10.1) Neutrophils (%) (Auto) 69.0 % (45.0-75.0) Lymphocytes (%) (Auto) 16.4 % (20.0-45.0) L Monocytes (%) (Auto) 13.2 % (1.0-10.0) H Eosinophils (%) (Auto) 0.0 % (0.0-3.0) Basophils (%) (Auto) 1.5 % (0.0-2.0) Prothrombin Time 10.3 SEC (9.30-11.50) Prothromb Time International Ratio 1.0 (0.9-1.1) Activated Partial Thromboplast Time 30 SEC (23-33) C-Reactive Protein, Quantitative 3.9 mg/dL (0.00-0.90) H Triglycerides Level 57 MG/DL (30-150) Cholesterol Level 156 MG/DL (< 200) LDL Cholesterol 66 mg/dL (<100) HDL Cholesterol 86 MG/DL (40-60) H Cholesterol/HDL Ratio 1.8 (3.3-4.4) L Thyroid Stimulating Hormone (TSH) 0.367 uiU/mL (0.358-3.740) West Nile Virus IgG Antibody Pending HIV-1 RNA (PCR) log10 Value Pending HIV-1 RNA Ultraquantitative (PCR) Pending HIV (1&2) Antibody Rapid Negative (NEGATIVE) General: well developed, well nourished, no acute distress Head: normocophalic, atraumatic Neck: no rigidity EENT: benign Neurologic Exam Mental Status: awake, alert, oriented x4, normal cognition, good mathematical skills, normal recent memory, normal remote memory, preserved visuospatial function Stance: other Gait: other Impression/Recommendations Problems: (1) Acute viral syndrome (2) r.o viral meningitis (3) Migraine headache (4) Hypertensive emergency Status: unchanged Recommendations #[id number] ID eval pain control LP pend cont antibx per CHARIS QUEVEDO Oct 04, 2017 13:05
[2017-10-04 16:00] VITALS: BP 115/59
--- NOTE | 2017-10-04 16:01 | Cardiology Report ---
APPROVED REPORT EKG Measurement Heart [id number] N[address] and T wave abnormality Abnormal ECG
--- NOTE | 2017-10-04 16:41 | Cardiology Progress Note ---
Assessment/Plan Problem List: (1) Acute viral syndrome (2) Chest pain (3) Migraine headache (4) Hypertensive emergency Status: stable, progressing Status Narrative Stable, improving BP control . Pt being treated for upper respiratory infection. Influenza screen negative. cultures negative. Assessment/Plan Continue evaluation /treatment per ID for upper respiratory infection and ? viral meningitis continue current medication for BP control. Subjective ROS Limited/Unobtainable: No Subjective Cardiology for Dr. Negro Mrs. Collins c/o cough and headache. Objective Last 24 Hour Vital Signs Date Time Temp Pulse Resp B/P (MAP) Pulse Ox O2 Delivery O2 Flow Rate FiO2 10/04/17 13:31 21 10/04/17 13:31 100 20 98 Room Air 21 10/04/17 13:24 96 20 98 Room Air 21 10/04/17 12:00 98.8 104 20 108/70 97 Room Air 10/04/17 11:35 102 10/04/17 09:25 21 10/04/17 09:25 98 20 97 Room Air 21 10/04/17 09:15 95 20 95 Room Air 21 10/04/17 08:39 107 133/75 10/04/17 08:33 134/74 10/04/17 08:00 107 20 133/75 95 Room Air 10/04/17 07:27 106 10/04/17 04:00 107 10/04/17 04:00 99.9 91 134/74 94 Room Air 10/04/17 01:52 103 20 98 Room Air 21 10/04/17 01:37 21 10/04/17 01:36 103 20 98 Room Air 21 10/04/17 00:00 111 10/04/17 00:00 97.2 85 155/102 94 Room Air 10/03/17 21:57 149/102 10/03/17 20:35 103 20 98 Room Air 21 10/03/17 20:10 21 10/03/17 20:10 103 20 98 Room Air 10/03/17 20:00 98.4 83 149/102 95 Room Air 10/03/17 19:55 102 10/03/17 19:52 98.4 10/03/17 19:24 103 20 Room Air 10/03/17 18:54 103 150/97 18 18:54 100.2 18 18:46 103 150/97 2/2/18 18:23 101.6 10/03/17 18:14 105 General Appearance: WD/WN, no apparent distress, alert EENT: PERRL/EOMI Neck: supple, no JVD Rhythm: NSR Cardiovascular: normal rate, regular rhythm, no gallop/murmur Respiratory/Chest: other - occ rhonchi bilat Abdomen: non tender, soft, no mass Extremities: no swelling Neurologic: alert, oriented x 3 Laboratory Tests Test 10/03/17 18:25 10/04/17 06:20 10/04/17 13:45 Erythrocyte Sedimentation Rate 47 MM/HR (0-20) H Troponin I 0.000 ng/mL (0.000-0.056) 0.000 ng/mL (0.000-0.056) Anti-Nuclear Antibody Screen Pending West Nile Virus IgM Antibody Pending Pending Influenza Virus Type A IgM Antibody Pending Influenza Virus Type B IgM Antibody Pending White Blood Count 3.5 K/UL (4.8-10.8) L Red Blood Count 3.46 M/UL (4.20-5.40) L Hemoglobin 10.1 G/DL (12.0-16.0) L Hematocrit 30.6 % (37.0-47.0) L Mean Corpuscular Volume 89 FL (80-99) Mean Corpuscular Hemoglobin 29.2 PG (27.0-31.0) Mean Corpuscular Hemoglobin Concent 32.9 G/DL (32.0-36.0) Red Cell Distribution Width 13.4 % (11.6-14.8) Platelet Count 210 K/UL (150-450) Mean Platelet Volume 7.7 FL (6.5-10.1) Neutrophils (%) (Auto) 69.0 % (45.0-75.0) Lymphocytes (%) (Auto) 16.4 % (20.0-45.0) L Monocytes (%) (Auto) 13.2 % (1.0-10.0) H Eosinophils (%) (Auto) 0.0 % (0.0-3.0) Basophils (%) (Auto) 1.5 % (0.0-2.0) Prothrombin Time 10.3 SEC (9.30-11.50) 10.2 SEC (9.30-11.50) Prothromb Time International Ratio 1.0 (0.9-1.1) 1.0 (0.9-1.1) Activated Partial Thromboplast Time 30 SEC (23-33) 31 SEC (23-33) C-Reactive Protein, Quantitative 3.9 mg/dL (0.00-0.90) H Triglycerides Level 57 MG/DL (30-150) Cholesterol Level 156 MG/DL (< 200) LDL Cholesterol 66 mg/dL (<100) HDL Cholesterol 86 MG/DL (40-60) H Cholesterol/HDL Ratio 1.8 (3.3-4.4) L Thyroid Stimulating Hormone (TSH) 0.367 uiU/mL (0.358-3.740) West Nile Virus IgG Antibody Pending HIV-1 RNA (PCR) log10 Value Pending HIV-1 RNA Ultraquantitative (PCR) Pending HIV (1&2) Antibody Rapid Negative (NEGATIVE) Microbiology Date/Time Source Procedure Growth Status 10/03/17 18:38 Nasal Not Otherwise Specified Influenza Types A,B Antigen (ROBYN) - Final Complete ANAND LINTON Oct 04, 2017 16:41
[2017-10-04 20:00] VITALS: BP 120/78
--- NOTE | 2017-10-04 20:03 | History & Physical ---
History and Physical History & Physicial History of Present Illness General Date patient seen: Oct 04, 2017 Time patient seen: 08:30 Chief Complaint: headache Present Illness HPI 42 y/o female with PMF of HTN, obesity, migraine headaches, presented to ED with 3 days onset of diarrhea, headaches (similar to her migraine headaches) , cough. +photophobia/phonophobia, neck pain, body aches, mild sore throat. Recent sick contacts- her kids with cold symptoms. Denied vomiting, nausea, No fall/trauma, No rashes. Upon presentation in ED found to have BP -178/123 VS revealed low grade fever-99.9 and tachycardia-130th ECG with ST, no acute ischemic changes troponin negative UA negative CXR negative rapid influenza screen negative test negative No leukocytosis K-3.3, otherwise stable renal parameters and lytes Mild anemia-11.7/35.7 Patient was admitted for further management Allergies: Coded Allergies: SHELLFISH DERIVED (Unverified Allergy, Unknown, 11/12/15) Medication History Scheduled Acetamin/Butalbital/Caffeine* (Fioricet*), 1 TAB ORAL Q6H Famotidine (Pepcid), 20 MG ORAL DAILY Furosemide* (Lasix*), 40 MG ORAL DAILY, (Reported) No Known Medications* (NKM - No Known Medications*), 0 ., (Reported) No Known Medications* (NKM - No Known Medications*), 0 ., (Reported) Sulfacetamide Sodium (Bleph-10), 2 DROP OP Q6HR Sumatriptan Succinate* (Imitrex*), 50 MG ORAL DAILY PRN MIGRAINE Scheduled PRN Alprazolam* (Xanax*), 0.25 MG ORAL TID PRN for For Anxiety Hydrocodone Bit/Acetaminophen 5-325* ([place] 5-325*), 1 TAB ORAL Q4H PRN for For Pain Ibuprofen* (Motrin*), 600 MG ORAL Q6H PRN for For Pain Naphazoline Hcl/Phenir Mal (Naphcon-A Eye Drops), 2 DROP OP THREE TIMES A DAY PRN for Itching Ondansetron Odt* (Zofran Odt*), 4 MG ORAL Q8H PRN for Nausea & Vomiting Ondansetron* (Zofran*), 4 MG ORAL Q6H PRN for Nausea & Vomiting Tramadol Hcl* (Ultram*), 50 MG ORAL Q6H PRN for For Pain Patient History History Provided By: Patient Healthcare decision maker Resuscitation status Full Code Advanced Directive on File Past Medical/Surgical History Past Medical/Surgical History: (1) Migraine headache (2) Obesity (BMI 30-39.9) (3) HTN (hypertension) ROS Review of Systems Constitutional: Reports: fever, malaise, weakness Eye: Reports: no symptoms ENT: Reports: see HPI Cardiovascular: Reports: other - chest discomfort Gastrointestinal: Reports: no symptoms Genitourinary: Reports: no symptoms Musculoskeletal: Reports: no symptoms Skin: Reports: no symptoms Psychiatric: Reports: no symptoms Neurological: Reports: headache Endocrine: Reports: no symptoms Hematologic/Lymphatic: Reports: no symptoms Physical Exam Physical Exam General Appearance: alert, obese, other - mild distress Lines, tubes and drains: peripheral HEENT: normocephalic, atraumatic, anicteric, mucous membranes moist, PERRL Neck: non-tender, supple - no meningeal signs Respiratory/Chest: chest wall non-tender, lungs clear, no respiratory distress , no accessory muscle use Cardiovascular/Chest: normal peripheral pulses, regular rhythm, tachycardia - ST on tele Abdomen: normal bowel sounds, non tender - obese, soft Neurologic: insulation cutter and former II-XII grossly normal, no motor/sensory deficits, alert, oriented x 3, responsive Musculoskeletal: normal muscle bulk Last 24 Hour Vital Signs Date Time Temp Pulse Resp B/P (MAP) Pulse Ox O2 Delivery O2 Flow Rate FiO2 10/04/17 09:15 95 20 95 Room Air 10/04/17 08:39 107 133/75 10/04/17 08:33 134/74 10/04/17 04:00 107 10/04/17 04:00 99.9 91 134/74 94 Room Air 10/04/17 01:52 103 20 98 Room Air 21 10/04/17 01:37 21 10/04/17 01:36 103 20 98 Room Air 21 10/04/17 00:00 111 10/04/17 00:00 97.2 85 155/102 94 Room Air 10/03/17 21:57 149/102 10/03/17 20:35 103 20 98 Room Air 21 10/03/17 20:10 21 10/03/17 20:10 103 20 98 Room Air 10/03/17 20:00 98.4 83 149/102 95 Room Air 10/03/17 19:55 102 10/03/17 19:52 98.4 10/03/17 19:24 103 20 Room Air 10/03/17 18:54 103 150/97 10/03/17 18:54 100.2 10/03/17 18:46 103 150/97 10/03/17 18:23 101.6 10/03/17 18:14 105 10/03/17 15:38 115 171/112 10/03/17 15:25 101.6 10/03/17 15:19 101.6 115 20 171/112 98 Room Air 10/03/17 14:49 110 18 167/110 95 Room Air 10/03/17 12:29 100.8 113 164/100 10/03/17 11:11 98.7 90 19 138/74 99 Room Air 10/03/17 10:55 100.5 111 23 161/92 Room Air 10/03/17 09:56 129 172/97 10/03/17 09:51 98.0 10/03/17 09:45 98.0 Laboratory Tests Test 10/03/17 18:25 10/04/17 06:20 Erythrocyte Sedimentation Rate 47 MM/HR (0-20) H Troponin I 0.000 ng/mL (0.000-0.056) 0.000 ng/mL (0.000-0.056) Anti-Nuclear Antibody Screen Pending West Nile Virus IgM Antibody Pending Influenza Virus Type A IgM Antibody Pending Influenza Virus Type B IgM Antibody Pending White Blood Count 3.5 K/UL (4.8-10.8) L Red Blood Count 3.46 M/UL (4.20-5.40) L Hemoglobin 10.1 G/DL (12.0-16.0) L Hematocrit 30.6 % (37.0-47.0) L Mean Corpuscular Volume 89 FL (80-99) Mean Corpuscular Hemoglobin 29.2 PG (27.0-31.0) Mean Corpuscular Hemoglobin Concent 32.9 G/DL (32.0-36.0) Red Cell Distribution Width 13.4 % (11.6-14.8) Platelet Count 210 K/UL (150-450) Mean Platelet Volume 7.7 FL (6.5-10.1) Neutrophils (%) (Auto) 69.0 % (45.0-75.0) Lymphocytes (%) (Auto) 16.4 % (20.0-45.0) L Monocytes (%) (Auto) 13.2 % (1.0-10.0) H Eosinophils (%) (Auto) 0.0 % (0.0-3.0) Basophils (%) (Auto) 1.5 % (0.0-2.0) Prothrombin Time 10.3 SEC (9.30-11.50) Prothromb Time International Ratio 1.0 (0.9-1.1) Activated Partial Thromboplast Time 30 SEC (23-33) C-Reactive Protein, Quantitative 3.9 mg/dL (0.00-0.90) H Triglycerides Level 57 MG/DL (30-150) Cholesterol Level 156 MG/DL (< 200) LDL Cholesterol 66 mg/dL (<100) HDL Cholesterol 86 MG/DL (40-60) H Cholesterol/HDL Ratio 1.8 (3.3-4.4) L Thyroid Stimulating Hormone (TSH) 0.367 uiU/mL (0.358-3.740) HIV (1&2) Antibody Rapid Pending Microbiology Date/Time Source Procedure Growth Status 10/03/17 18:38 Nasal Not Otherwise Specified Influenza Types A,B Antigen (ROBYN) - Final Complete Height (Feet): 5 Height (Inches): 4.00 Weight (Pounds): 230 Medications Current Medications Medications (Trade) Dose Ordered Sig/Katya Route PRN Reason Start Time Stop Time Status Last Admin Dose Admin Acetaminophen (Tylenol) 650 mg Q4H PRN ORAL FEVER 10/03/17 13:45 11/02/17 13:44 Acetaminophen/ Butalbital/ Caffeine (Fioricet) 1 tab Q4HR PRN ORAL For moderate Pain/headache 10/03/17 17:45 11/02/17 17:44 10/03/17 18:53 Albuterol/ Ipratropium (Albuterol/ Ipratropium) 3 ml EVERY 4 HOURS PRN HHN Shortness of Breath 10/03/17 13:45 10/08/17 13:44 Albuterol/ Ipratropium (Albuterol/ Ipratropium) 3 ml Q6HRT HHN 10/03/17 19:00 10/08/17 18:59 10/04/17 09:14 Amlodipine Besylate (Norvasc) 5 mg DAILY ORAL 10/03/17 18:45 11/02/17 18:44 10/04/17 08:39 Ceftriaxone Sodium 2 gm/ Sodium Chloride 55 ml @ 110 mls/hr EVERY 12 HOURS IVPB 10/03/17 21:00 10/10/17 23:59 10/04/17 08:32 Diltiazem HCl (Cardizem) 10 mg EVERY HOUR PRN IV heart rate more than 120, 10/03/17 13:45 11/02/17 13:44 Enalaprilat (Vasotec) 2.5 mg EVERY 6 HOURS PRN IV sbp more than 160 10/03/17 15:30 11/02/17 15:29 Heparin Sodium (Porcine) (Heparin 5000 units/ml) 5,000 units EVERY 12 HOURS SUBQ 10/03/17 21:00 11/02/17 20:59 10/04/17 08:35 Hydromorphone HCl (Dilaudid) 1 mg Q4H PRN IVP For Severe Pain 10/03/17 17:45 10/10/17 17:29 10/04/17 08:38 Labetalol HCl (Normodyne) 20 mg EVERY HOUR PRN IV sbp more than 160 10/03/17 13:45 11/02/17 13:44 10/03/17 15:38 Lisinopril (Prinivil) 20 mg DAILY ORAL 10/03/17 20:00 11/02/17 19:59 10/04/17 08:33 Magnesium Oxide (Mag-Ox 400mg) 400 mg BID ORAL 10/03/17 18:00 11/02/17 17:59 10/04/17 08:41 Nitroglycerin (Ntg) 0.4 mg Q5MIN X 3 DOSES PRN SL Prn Chest Pain 10/03/17 15:30 11/02/17 15:29 Nortriptyline HCl (Pamelor) 25 mg BEDTIME ORAL 10/03/17 21:00 11/02/17 20:59 10/03/17 21:57 Ondansetron HCl (Zofran) 4 mg Q6H PRN IVP Nausea & Vomiting 2/2/18 13:45 11/02/17 13:44 10/04/17 08:41 Oseltamivir Phosphate (Tamiflu) 75 mg TWICE A DAY ORAL 10/03/17 19:45 10/08/17 23:59 10/03/17 22:05 Pantoprazole (Protonix) 40 mg DAILY ORAL 10/04/17 09:00 11/03/17 08:59 10/04/17 08:32 Polyethylene Glycol (Miralax) 17 gm DAILYPRN PRN ORAL Constipation 10/03/17 13:45 11/02/17 13:44 Promethazine HCl/ Codeine (Phenergan with Codeine) 5 ml Q4H PRN ORAL For Cough 10/03/17 13:45 11/02/17 13:44 Temazepam (Restoril) 15 mg HSPRN PRN ORAL Insomnia 10/03/17 13:45 10/10/17 13:44 Vancomycin HCl (Vanco rx to dose) 1 ea DAILY PRN MISC Per rx protocol 10/03/17 20:15 11/02/17 20:14 Vancomycin HCl/ Dextrose 250 ml @ 166.667 mls/hr Q12H IVPB 10/04/17 10:00 10/09/17 23:59 Assessment/Plan Assessment/Plan Assessment/Plan ASSESSMENT acute viral syndrome Probably influenza HTN urgency migraine RIVERA r/o viral meningitis Obesity anemia PLAN OF CARE Tele empiric anx and Tamiflu Droplet precautions rapid influenza negative, check influenza Ag as per ID a/tussive prn LP with CSF analysis CT head no acute IC pathology neuro follows urine tox+ marijuana BP management with CCB and CORINA and uptitrate as needed Cardio follows troponin x 2 negative ECHO with pEF 55% and RVSP of 22, O2 HHN prn DVT GI prophylaxis pain management case discussed and evaluated by supervising physician Rosalee Posadas NP ([facility]) Oct 04, 2017 09:24 Rosalee Posadas NP (Vanchtein) Oct 04, 2017 20:03
[2017-10-04] MEDS: Nortriptyline 25mg cap ORAL SCH (21:27)
[2017-10-05] VITALS: BP 133/74
[2017-10-05] MEDS: Albuterol/Ipratropium 3ml neb HHN SCH ×4 (02:02→20:30)
[2017-10-05 04:00] VITALS: BP 117/77
[2017-10-05] MEDS: HYDROmorphone 1mg/ml Carpuject IVP PRN (05:03)
[2017-10-05 07:13] LABS: HEMATOCRIT 32.9 % (37.0-47.0); HEMOGLOBIN 10.8 G/DL (12.0-16.0); MEAN CORPUSCULAR VOLUME 88 FL (80-99); PLATELET COUNT 230 K/UL (150-450); RED BLOOD COUNT 3.72 M/UL (4.20-5.40); RED CELL DISTRIBUTION WIDTH 13.2 % (11.6-14.8); WHITE BLOOD COUNT 2.3 K/UL (4.8-10.8)
[2017-10-05 08:00] VITALS: BP 119/73
[2017-10-05 08:04] LABS: % IRON SATURATION 5 % (15-50); IRON 22 ug/dL (50-175); TOTAL IRON BINDING CAPACITY 438 ug/dL (250-450)
[2017-10-05] MEDS: cefTRIAXone 2 GM in NS 55 ML IVPB SCH ×2 (08:18→20:54)
[2017-10-05] MEDS: Magnesium Oxide 400mg tab ORAL SCH ×2 (08:18→17:24)
[2017-10-05] MEDS: Oseltamivir 75mg cap ORAL SCH ×2 (08:19→17:24)
[2017-10-05] MEDS: Lisinopril 20mg tab ORAL SCH (08:19)
[2017-10-05] MEDS: Heparin 5000 units/ml inj SUBQ SCH ×2 (08:19→20:55)
--- NOTE | 2017-10-05 08:39 | General Progress Note ---
Assessment/Plan Problem List: (1) Iron deficiency anemia ICD Codes: D50.9 - Iron deficiency anemia, unspecified SNOMED: 03019464 (2) Diarrhea ICD Codes: R19.7 - Diarrhea, unspecified SNOMED: 25670270 (3) Obesity (BMI 30-39.9) ICD Codes: E66.9 - Obesity, unspecified SNOMED: 515040555, 020927385 (4) HTN (hypertension) ICD Codes: I10 - Essential (primary) hypertension SNOMED: 49087923 (5) Hypertensive emergency ICD Codes: I16.1 - Hypertensive emergency SNOMED: 596164659155270 Assessment/Plan start IV iron fu stool studies fu labs Subjective ROS Limited/Unobtainable: Yes Allergies: Coded Allergies: SHELLFISH DERIVED (Unverified Allergy, Unknown, 11/12/15) Subjective abd pain Objective Last 24 Hour Vital Signs Date Time Temp Pulse Resp B/P (MAP) Pulse Ox O2 Delivery O2 Flow Rate FiO2 10/05/17 08:19 119/77 10/05/17 08:18 99 119/77 10/05/17 06:52 21 10/05/17 06:51 99 20 100 Room Air 10/05/17 06:42 96 20 97 Room Air 10/05/17 04:00 93 10/05/17 04:00 98.4 92 18 117/77 93 Room Air 10/05/17 01:28 101 18 100 Room Air 10/05/17 01:20 36 10/05/17 01:20 94 20 98 Room Air 10/05/17 00:00 99.7 95 18 133/74 97 Room Air 10/05/17 00:00 98 10/04/17 20:00 100 10/04/17 20:00 100.1 95 18 120/78 95 10/04/17 19:17 102 20 100 Room Air 10/04/17 19:09 115 22 100 Room Air 10/04/17 19:09 36 10/04/17 17:03 94 10/04/17 16:00 97.9 104 19 115/59 95 Room Air 10/04/17 13:31 21 10/04/17 13:31 100 20 98 Room Air 21 10/04/17 13:24 96 20 98 Room Air 10/04/17 12:00 98.8 104 20 108/70 97 Room Air 10/04/17 11:35 102 10/04/17 09:25 21 10/04/17 09:25 98 20 97 Room Air 21 10/04/17 09:15 95 20 95 Room Air 10/04/17 08:39 107 133/75 Intake and Output 10/04/17 10/05/17 19:00 07:00 Intake Total 118 ml Balance 118 ml Intake Oral 118 ml # Voids 1 2 Laboratory Tests 10/04/17 13:45: Prothrombin Time 10.2, Prothromb Time International Ratio 1.0, Activated Partial Thromboplast Time 31 10/05/17 06:15: White Blood Count 2.3L, Red Blood Count 3.72L, Hemoglobin 10.8L, Hematocrit 32.9L, Mean Corpuscular Volume 88, Mean Corpuscular Hemoglobin 28.9, Mean Corpuscular Hemoglobin Concent 32.7, Red Cell Distribution Width 13.2, Platelet Count 230, Mean Platelet Volume 8.6, Neutrophils (%) (Auto) , Lymphocytes (%) ( Auto) , Monocytes (%) (Auto) , Eosinophils (%) (Auto) , Basophils (%) (Auto) , Neutrophils % (Manual) [Pending], Lymphocytes % (Manual) [Pending], Platelet Estimate [Pending], Platelet Morphology [Pending], Iron Level 22L, Total Iron Binding Capacity 438, Percent Iron Saturation 5L, Unsaturated Iron Binding 416H , Troponin I 0.000, Vitamin B12 Level 650, Folate 13.6 Height (Feet): 5 Height (Inches): 4.00 Weight (Pounds): 230 General Appearance: alert EENT: normal ENT inspection Neck: supple Cardiovascular: normal rate Respiratory/Chest: decreased breath sounds Abdomen: normal bowel sounds, non tender, soft Extremities: non-tender MALATHI BERNARD Oct 05, 2017 08:39
[2017-10-05] MEDS: Vancomycin 1250mg/D5W 250ml IVPB SCH (10:36)
[2017-10-05 12:00] VITALS: BP 109/64
--- NOTE | 2017-10-05 12:25 | Pulmonology Progress Note ---
Assessment/Plan Assessment/Plan ASSESSMENT acute viral syndrome Probably influenza HTN urgency migraine RIVERA r/o viral meningitis Obesity anemia PLAN OF CARE Tele empiric anx and Tamiflu Droplet precautions rapid influenza negative x2 , check influenza Ag as per ID a/tussive prn LP with CSF analysis in am CT head no acute IC pathology neuro follows urine tox+ marijuana BP management with CCB and CORINA and uptitrate as needed Cardio follows troponin x 2 negative ECHO with pEF 55% and RVSP of 22, O2 HHN prn DVT GI prophylaxis pain management anemia w/up revealed CHUNG, would hold Venofer ( SE headache, frequent) will start in oral iron supplements, monitor counts case discussed and evaluated by supervising physician Cuauhtemoc ([facility]),Rosalee MARAVILLA Oct 04, 2017 09:24 Subjective Allergies: Coded Allergies: SHELLFISH DERIVED (Unverified Allergy, Unknown, 11/12/15) Subjective leukopenic, afebrile still with RIVERA and neck pain, slightly better Objective Last 24 Hour Vital Signs Date Time Temp Pulse Resp B/P (MAP) Pulse Ox O2 Delivery O2 Flow Rate FiO2 10/05/17 08:19 119/77 10/05/17 08:18 99 119/77 10/05/17 08:00 98.1 98 19 119/73 94 Room Air 10/05/17 08:00 72 10/05/17 06:52 21 10/05/17 06:51 99 20 100 Room Air 10/05/17 06:42 96 20 97 Room Air 21 10/05/17 04:00 93 10/05/17 04:00 98.4 92 18 117/77 93 Room Air 10/05/17 01:28 101 18 100 Room Air 10/05/17 01:20 36 10/05/17 01:20 94 20 98 Room Air 21 10/05/17 00:00 99.7 95 18 133/74 97 Room Air 10/05/17 00:00 98 10/04/17 20:00 100 10/04/17 20:00 100.1 95 18 120/78 95 10/04/17 19:17 102 20 100 Room Air 21 10/04/17 19:09 115 22 100 Room Air 21 10/04/17 19:09 36 10/04/17 17:03 94 10/04/17 16:00 97.9 104 19 115/59 95 Room Air 10/04/17 13:31 21 10/04/17 13:31 100 20 98 Room Air 21 10/04/17 13:24 96 20 98 Room Air 21 Intake and Output 10/04/17 10/05/17 19:00 07:00 Intake Total 118 ml Balance 118 ml Intake Oral 118 ml # Voids 1 2 Objective General Appearance: alert, obese, NAD Lines, tubes and drains: peripheral HEENT: normocephalic, atraumatic, anicteric, mucous membranes moist, PERRL Neck: non-tender, supple - no meningeal signs Respiratory/Chest: chest wall non-tender, lungs clear, no respiratory distress , no accessory muscle use Cardiovascular/Chest: normal peripheral pulses, regular rhythm, SR on tele Abdomen: normal bowel sounds, non tender - obese, soft Neurologic: poiser balance II-XII grossly normal, no motor/sensory deficits, alert, oriented x 3, responsive Musculoskeletal: normal muscle bulk Microbiology Date/Time Source Procedure Growth Status 10/04/17 20:33 Nasopharynx Influenza Types A,B Antigen (ROBYN) - Final Complete 10/03/17 18:38 Nasal Not Otherwise Specified Influenza Types A,B Antigen (ROBYN) - Final Complete Laboratory Tests 10/04/17 13:45: Prothrombin Time 10.2, Prothromb Time International Ratio 1.0, Activated Partial Thromboplast Time 31 10/05/17 06:15: White Blood Count 2.3L, Red Blood Count 3.72L, Hemoglobin 10.8L, Hematocrit 32.9L, Mean Corpuscular Volume 88, Mean Corpuscular Hemoglobin 28.9, Mean Corpuscular Hemoglobin Concent 32.7, Red Cell Distribution Width 13.2, Platelet Count 230, Mean Platelet Volume 8.6, Neutrophils (%) (Auto) , Lymphocytes (%) ( Auto) , Monocytes (%) (Auto) , Eosinophils (%) (Auto) , Basophils (%) (Auto) , Differential Total Cells Counted 100, Neutrophils % (Manual) 39L, Lymphocytes % (Manual) 53H, Monocytes % (Manual) 7, Eosinophils % (Manual) 1, Basophils % ( Manual) 0, Band Neutrophils 0, Platelet Estimate Adequate, Platelet Morphology Normal, Hypochromasia 1+, Iron Level 22L, Total Iron Binding Capacity 438, Percent Iron Saturation 5L, Unsaturated Iron Binding 416H, Troponin I 0.000, Vitamin B12 Level 650, Folate 13.6 10/05/17 09:30: Vancomycin Level Trough 10.6 Current Medications Medications (Trade) Dose Ordered Sig/Katya Route PRN Reason Start Time Stop Time Status Last Admin Dose Admin Acetaminophen (Tylenol) 650 mg Q4H PRN ORAL FEVER 10/03/17 13:45 11/02/17 13:44 Acetaminophen/ Butalbital/ Caffeine (Fioricet) 1 tab Q4HR PRN ORAL For moderate Pain/headache 10/03/17 17:45 11/02/17 17:44 10/05/17 12:00 Albuterol/ Ipratropium (Albuterol/ Ipratropium) 3 ml EVERY 4 HOURS PRN HHN Shortness of Breath 10/03/17 13:45 10/08/17 13:44 Albuterol/ Ipratropium (Albuterol/ Ipratropium) 3 ml Q6HRT HHN 10/03/17 19:00 10/08/17 18:59 10/05/17 06:41 Amlodipine Besylate (Norvasc) 5 mg DAILY ORAL 10/03/17 18:45 11/02/17 18:44 10/05/17 08:18 Ceftriaxone Sodium 2 gm/ Sodium Chloride 55 ml @ 110 mls/hr EVERY 12 HOURS IVPB 10/03/17 21:00 10/10/17 23:59 10/05/17 08:18 Diltiazem HCl (Cardizem) 10 mg EVERY HOUR PRN IV heart rate more than 120, 10/03/17 13:45 11/02/17 13:44 Enalaprilat (Vasotec) 2.5 mg EVERY 6 HOURS PRN IV sbp more than 160 10/03/17 15:30 11/02/17 15:29 Heparin Sodium (Porcine) (Heparin 5000 units/ml) 5,000 units EVERY 12 HOURS SUBQ 10/03/17 21:00 11/02/17 20:59 10/04/17 21:27 Hydromorphone HCl (Dilaudid) 1 mg Q4H PRN IVP For Severe Pain 10/03/17 17:45 10/10/17 17:29 10/05/17 05:03 Labetalol HCl (Normodyne) 20 mg EVERY HOUR PRN IV sbp more than 160 10/03/17 13:45 11/02/17 13:44 10/03/17 15:38 Lisinopril (Prinivil) 20 mg DAILY ORAL 10/03/17 20:00 11/02/17 19:59 10/05/17 08:19 Magnesium Oxide (Mag-Ox 400mg) 400 mg BID ORAL 10/03/17 18:00 11/02/17 17:59 10/05/17 08:18 Nitroglycerin (Ntg) 0.4 mg Q5MIN X 3 DOSES PRN SL Prn Chest Pain 10/03/17 15:30 11/02/17 15:29 Nortriptyline HCl (Pamelor) 25 mg BEDTIME ORAL 10/03/17 21:00 11/02/17 20:59 10/04/17 21:27 Ondansetron HCl (Zofran) 4 mg Q6H PRN IVP Nausea & Vomiting 10/03/17 13:45 11/02/17 13:44 10/05/17 05:03 Oseltamivir Phosphate (Tamiflu) 75 mg TWICE A DAY ORAL 10/03/17 19:45 10/08/17 23:59 10/05/17 08:19 Pantoprazole (Protonix) 40 mg DAILY ORAL 10/04/17 09:00 11/03/17 08:59 10/05/17 08:18 Polyethylene Glycol (Miralax) 17 gm DAILYPRN PRN ORAL Constipation 10/03/17 13:45 11/02/17 13:44 Promethazine HCl/ Codeine (Phenergan with Codeine) 5 ml Q4H PRN ORAL For Cough 10/03/17 13:45 11/02/17 13:44 Temazepam (Restoril) 15 mg HSPRN PRN ORAL Insomnia 10/03/17 13:45 10/10/17 13:44 Vancomycin HCl (Vanco rx to dose) 1 ea DAILY PRN MISC Per rx protocol 10/03/17 20:15 11/02/17 20:14 Vancomycin HCl 1 gm/Dextrose 275 ml @ 183.708 mls/hr Q8HR@0200,1000,1800 IVPB 10/05/17 18:00 10/10/17 17:59 Vancomycin HCl/ Dextrose 250 ml @ 166.667 mls/hr Q12H IVPB 10/04/17 10:00 10/05/17 13:00 10/05/17 10:36 Cuauhtemoc ([facility]),Rosalee MARAVILLA Oct 05, 2017 12:25
[2017-10-05 16:00] VITALS: BP 111/62
[2017-10-05] MEDS: Vancomycin 1gm/D5W 275ml IVPB SCH ×2 (17:24)
--- NOTE | 2017-10-05 17:32 | Cardiology Progress Note ---
Assessment/Plan Problem List: (1) Acute viral syndrome (2) Chest pain (3) Migraine headache (4) Hypertensive emergency Status: stable, unchanged Status Narrative Stable, w BP controlled w/ norvasc and lisinopril Noted plan for LP tomorrow - r/o meningitis per ID Pt also being treated for upper respiratory infection. Influenza screen negative. cultures negative. Plan per ID Assessment/Plan Continue evaluation /treatment per ID for upper respiratory infection and ? viral meningitis continue current medication for BP control. Subjective ROS Limited/Unobtainable: No Subjective Cardiology for Dr. Negro Mrs. Collins c/o headache, neck stiffness Objective Last 24 Hour Vital Signs Date Time Temp Pulse Resp B/P (MAP) Pulse Ox O2 Delivery O2 Flow Rate FiO2 10/05/17 13:03 100 20 100 Room Air 10/05/17 13:03 21 10/05/17 12:46 91 20 98 Room Air 21 10/05/17 12:00 91 10/05/17 12:00 97.9 93 20 109/64 95 Room Air 10/05/17 08:19 119/77 10/05/17 08:18 99 119/77 10/05/17 08:00 98.1 98 19 119/73 94 Room Air 10/05/17 08:00 72 10/05/17 06:52 21 10/05/17 06:51 99 20 100 Room Air 10/05/17 06:42 96 20 97 Room Air 21 10/05/17 04:00 93 10/05/17 04:00 98.4 92 18 117/77 93 Room Air 10/05/17 01:28 101 18 100 Room Air 10/05/17 01:20 36 10/05/17 01:20 94 20 98 Room Air 21 10/05/17 00:00 99.7 95 18 133/74 97 Room Air 10/05/17 00:00 98 10/04/17 20:00 100 10/04/17 20:00 100.1 95 18 120/78 95 10/04/17 19:17 102 20 100 Room Air 21 10/04/17 19:09 115 22 100 Room Air 10/04/17 19:09 36 General Appearance: WD/WN, mild distress, obese EENT: PERRL/EOMI Neck: supple, no JVD Rhythm: NSR Cardiovascular: normal rate, regular rhythm Respiratory/Chest: no respiratory distress, other - coarse BS bilat Abdomen: non tender, soft Extremities: no swelling Intake and Output 10/04/17 10/05/17 19:00 07:00 Intake Total 118 ml Balance 118 ml Intake Oral 118 ml # Voids 1 2 Laboratory Tests Test 10/05/17 06:15 10/05/17 09:30 10/05/17 12:45 White Blood Count 2.3 K/UL (4.8-10.8) L Red Blood Count 3.72 M/UL (4.20-5.40) L Hemoglobin 10.8 G/DL (12.0-16.0) L Hematocrit 32.9 % (37.0-47.0) L Mean Corpuscular Volume 88 FL (80-99) Mean Corpuscular Hemoglobin 28.9 PG (27.0-31.0) Mean Corpuscular Hemoglobin Concent 32.7 G/DL (32.0-36.0) Red Cell Distribution Width 13.2 % (11.6-14.8) Platelet Count 230 K/UL (150-450) Mean Platelet Volume 8.6 FL (6.5-10.1) Neutrophils (%) (Auto) % (45.0-75.0) Lymphocytes (%) (Auto) % (20.0-45.0) Monocytes (%) (Auto) % (1.0-10.0) Eosinophils (%) (Auto) % (0.0-3.0) Basophils (%) (Auto) % (0.0-2.0) Differential Total Cells Counted 100 Neutrophils % (Manual) 39 % (45-75) L Lymphocytes % (Manual) 53 % (20-45) H Monocytes % (Manual) 7 % (1-10) Eosinophils % (Manual) 1 % (0-3) Basophils % (Manual) 0 % (0-2) Band Neutrophils 0 % (0-8) Platelet Estimate Adequate Platelet Morphology Normal Hypochromasia 1+ Iron Level 22 ug/dL (50-175) L Total Iron Binding Capacity 438 ug/dL (250-450) Percent Iron Saturation 5 % (15-50) L Unsaturated Iron Binding 416 ug/dL (112-346) H Troponin I 0.000 ng/mL (0.000-0.056) Vitamin B12 Level 650 PG/ML (193-986) Folate 13.6 NG/ML (8.6-58.9) Vancomycin Level Trough 10.6 ug/mL (5.0-12.0) Stool Occult Blood Pending Microbiology Date/Time Source Procedure Growth Status 10/04/17 20:33 Nasopharynx Influenza Types A,B Antigen (ROBYN) - Final Complete 10/03/17 18:38 Nasal Not Otherwise Specified Influenza Types A,B Antigen (ROBYN) - Final Complete ANAND LINTON Oct 05, 2017 17:32
[2017-10-05 20:00] VITALS: BP 104/63
[2017-10-05] MEDS: Nortriptyline 25mg cap ORAL SCH (20:54)
--- NOTE | 2017-10-05 23:05 | Consultation ---
DATE OF CONSULTATION: 10/04/2017 CONSULTING PHYSICIAN: Elbert Good M.D. REFERRING PHYSICIAN: Katia Avery M.D. CHIEF COMPLAINT: Diarrhea. HISTORY OF PRESENT ILLNESS: The patient is a very unfortunate 42-year-old female with past medical history of hypertension, not on any medication, apparently, she stopped taking her medication and history of migraine headaches, came to the hospital with diarrhea, headache, elevated blood pressures, and possible viral syndrome. Since admission, the patient has been seen by the neurologist, fibre composite technician, Internal Medicine, liquor commissioner, and now GI consult requested for evaluation of anemia and diarrhea. PAST MEDICAL HISTORY: 1. Hypertension. 2. Migraine headaches. 3. The patient is overweight. MEDICATIONS: Please see medication reconciliation list. ALLERGIES: To Shellfish. SOCIAL HISTORY: The patient denies tobacco usage, but the patient used marijuana. Denies any alcohol usage. FAMILY HISTORY: Noncontributory. REVIEW OF SYSTEMS: A 10-point review of systems was performed and pertinent positives in HPI. PHYSICAL EXAMINATION: VITAL SIGNS: Temperature is 99.9 degrees, pulse is 107, respirations 20, and blood pressure is 133/75. HEENT: Normocephalic and atraumatic. Sclerae anicteric. NECK: Supple. No adenopathy. CARDIOVASCULAR: Regular rhythm. Plus S1 and S2. No obvious murmur. LUNGS: Decreased breath sounds bilaterally diffusely. ABDOMEN: Soft, nontender. No rebound. No guarding. No peritoneal signs. EXTREMITIES: No cyanosis. No clubbing. No edema. LABORATORY AND DIAGNOSTIC DATA: White count 3.5, hemoglobin 10.1, hematocrit 30, platelet count is 210. Chemistry, sodium 138, potassium 3.3, BUN is 7, and creatinine 0.9. Liver enzymes grossly normal. ASSESSMENT AND PLAN: The patient is a 42-year-old female with diarrhea, normocytic anemia, migraine headaches, blood pressure out of control, and obesity. PLAN: Send stool studies, stool for C. diff, stool for culture. Consider adding Imodium if stool studies come back negative. The patient has persistent diarrhea. This is most probably a viral syndrome. anemia. We will do anemia workup including iron panel, B12, folic acid, stool for OB. I will make further recommendation results are back. I want to thank, Dr. Avery, for this kind referral. Elbert Good M.D. DR: MADHU JOB#: [id number] CC: Katia Avery M.D.; Fax#: [phone]
[2017-10-06] VITALS: BP 112/72
[2017-10-06] MEDS: Albuterol/Ipratropium 3ml neb HHN SCH ×4 (01:10→19:18)
[2017-10-06] MEDS: Vancomycin 1gm/D5W 275ml IVPB SCH ×6 (01:47→18:23)
[2017-10-06 04:00] VITALS: BP 125/76
[2017-10-06 07:17] LABS: ANION GAP 8 mmol/L (5-15); BLOOD UREA NITROGEN 4 mg/dL (7-18); CALCIUM 8.6 MG/DL (8.5-10.1); CARBON DIOXIDE 28 MMOL/L (21-32); CHLORIDE 104 MMOL/L (98-107); POTASSIUM 2.9 MMOL/L (3.5-5.1); SODIUM 140 MMOL/L (136-145)
[2017-10-06 07:25] LABS: HEMATOCRIT 33.5 % (37.0-47.0); HEMOGLOBIN 11.4 G/DL (12.0-16.0); MEAN CORPUSCULAR VOLUME 88 FL (80-99); PLATELET COUNT 253 K/UL (150-450); RED BLOOD COUNT 3.81 M/UL (4.20-5.40); WHITE BLOOD COUNT 2.5 K/UL (4.8-10.8)
[2017-10-06 08:00] VITALS: BP 123/83
[2017-10-06] MEDS: Magnesium Oxide 400mg tab ORAL SCH ×2 (08:27→18:24)
[2017-10-06] MEDS: cefTRIAXone 2 GM in NS 55 ML IVPB SCH ×2 (08:27→20:52)
[2017-10-06] MEDS: Oseltamivir 75mg cap ORAL SCH ×2 (08:28→18:24)
[2017-10-06] MEDS: Lisinopril 20mg tab ORAL SCH (08:28)
[2017-10-06] MEDS: Heparin 5000 units/ml inj SUBQ SCH ×2 (08:29→21:00)
--- NOTE | 2017-10-06 10:02 | Diagnostic Imaging Report ---
Indication: Shortness of breath Technique: One view of the chest Comparison: October 03, 2017 Findings: Lungs and pleural spaces are clear. Heart size is normal. No significant interim change Impression: No acute process
--- NOTE | 2017-10-06 10:51 | GI Progress Note ---
Assessment/Plan Problems: (1) Iron deficiency anemia ICD Codes: D50.9 - Iron deficiency anemia, unspecified SNOMED: 37117490 (2) Obesity (BMI 30-39.9) ICD Codes: E66.9 - Obesity, unspecified SNOMED: 877504724, 983276507 (3) r.o viral meningitis Status: unchanged Status Narrative Discussed with Dr. Good. Assessment/Plan marijuana positive anemia work up reviewed >> start IV iron cdiff negative fu stool studies prn transfusions fu labs Subjective Gastrointestinal/Abdominal: Reports: no symptoms Objective Last 24 Hour Vital Signs Date Time Temp Pulse Resp B/P (MAP) Pulse Ox O2 Delivery O2 Flow Rate FiO2 10/06/17 08:30 111 123/83 10/06/17 08:28 123/83 10/06/17 08:00 97.7 111 20 123/83 98 Room Air 10/06/17 07:41 95 20 100 Room Air 21 10/06/17 07:30 91 20 97 Room Air 21 10/06/17 07:30 21 10/06/17 04:00 98.0 91 20 125/76 95 Room Air 10/06/17 04:00 98 10/06/17 01:17 92 20 96 Room Air 21 10/06/17 01:10 21 10/06/17 01:10 96 20 96 Room Air 21 10/06/17 00:00 96 10/06/17 00:00 97.0 75 20 112/72 96 Room Air 10/05/17 21:11 100 19 95 Room Air 21 10/05/17 20:38 100 19 95 Room Air 21 10/05/17 20:38 21 10/05/17 20:00 98.2 91 20 104/63 95 Room Air 10/05/17 20:00 97 10/05/17 16:00 98.1 100 19 111/62 95 Room Air 10/05/17 16:00 100 10/05/17 13:03 100 20 100 Room Air 21 10/05/17 13:03 21 10/05/17 12:46 91 20 98 Room Air 21 10/05/17 12:00 91 10/05/17 12:00 97.9 93 20 109/64 95 Room Air Intake and Output 10/05/17 10/06/17 19:00 07:00 Intake Total 236 ml 566.000 ml Balance 236 ml 566.000 ml Intake Oral 236 ml 236 ml IV Total 330.000 ml # Voids 4 # Bowel Movements 1 Laboratory Tests Test 10/05/17 12:45 10/06/17 04:45 Stool Occult Blood Pending White Blood Count 2.5 K/UL (4.8-10.8) L Red Blood Count 3.81 M/UL (4.20-5.40) L Hemoglobin 11.4 G/DL (12.0-16.0) L Hematocrit 33.5 % (37.0-47.0) L Mean Corpuscular Volume 88 FL (80-99) Mean Corpuscular Hemoglobin 29.8 PG (27.0-31.0) Mean Corpuscular Hemoglobin Concent 33.9 G/DL (32.0-36.0) Red Cell Distribution Width 13.0 % (11.6-14.8) Platelet Count 253 K/UL (150-450) Mean Platelet Volume 7.7 FL (6.5-10.1) Neutrophils (%) (Auto) % (45.0-75.0) Lymphocytes (%) (Auto) % (20.0-45.0) Monocytes (%) (Auto) % (1.0-10.0) Eosinophils (%) (Auto) % (0.0-3.0) Basophils (%) (Auto) % (0.0-2.0) Differential Total Cells Counted 100 Neutrophils % (Manual) 47 % (45-75) Lymphocytes % (Manual) 42 % (20-45) Monocytes % (Manual) 11 % (1-10) H Eosinophils % (Manual) 0 % (0-3) Basophils % (Manual) 0 % (0-2) Band Neutrophils 0 % (0-8) Platelet Estimate Adequate Platelet Morphology Normal Sodium Level 140 MMOL/L (136-145) Potassium Level 2.9 MMOL/L (3.5-5.1) L Chloride Level 104 MMOL/L (98-107) Carbon Dioxide Level 28 MMOL/L (21-32) Anion Gap 8 mmol/L (5-15) Blood Urea Nitrogen 4 mg/dL (7-18) L Creatinine 1.0 MG/DL (0.55-1.30) Estimat Glomerular Filtration Rate > 60 mL/min (>60) Glucose Level 88 MG/DL (74-106) Calcium Level 8.6 MG/DL (8.5-10.1) Microbiology Date/Time Source Procedure Growth Status 10/05/17 12:45 Stool Stool Culture Pending Resulted 10/05/17 12:45 Stool Clostridium difficile Toxin Assay - Final Resulted Height (Feet): 5 Height (Inches): 4.00 Weight (Pounds): 230 General Appearance: WD/WN, no apparent distress, alert, overweight Cardiovascular: normal rate Respiratory/Chest: normal breath sounds, no respiratory distress Abdominal Exam: normal bowel sounds, non tender, soft Extremities: normal range of motion, non-tender Deborah Salinas N.P. Oct 06, 2017 10:51
--- NOTE | 2017-10-06 10:59 | Cardiology Report ---
APPROVED REPORT EXAM: Two-dimensional and M-mode echocardiogram with Doppler and color Doppler. INDICATION Left Ventricular Function M-Mode DIMENSIONS IVSd1.3 (0.7-1.1cm)Left Atrium (MM)3.9 (1.6-4.0cm) LVDd4.8 (3.5-5.6cm)Aortic Root3.5 (2.0-3.7cm) PWd1.1 (0.7-1.1cm)Aortic Cusp Exc.2.0 (1.5-2.0cm) LVDs2.5 (2.5-4.0cm) PWs2.4 cm Normal left ventricular chamber size, systolic function and wall motion. Left ventricular ejection fraction estimated to be 55 %. Mild left ventricular hypertrophy. Anterior Echo-free space, may be due to pericardial fat or effusion. All other cardiac chamber sizes are within normal limits. Normal appearing aortic, mitral, pulmonic and tricuspid valves. Mitral annulus and aortic root calcification. IVC measures at 1.8 cm with physiologic collapse. A color flow and spectral Doppler study was performed and revealed: No aortic regurgitation. Trace mitral regurgitation. Mitral diastolic velocities suggest mild left ventricular dysfunction (Grade I ). Trace tricuspid regurgitation. Tricuspid systolic velocities suggests peak right ventricular systolic pressure of 22 mmHg. No pulmonic regurgitation present.
--- NOTE | 2017-10-06 11:43 | Infectious Diseases Prog Note ---
Assessment/Plan Assessment/Plan Assessment: Viral syndrome- suspect Flu despite neg rapid test influenza, rapid test neg x2 CXR no acute disease -CRP 3.9 -HIV ab (rapid) neg, VL p -WNV ab p RIVERA-likely 2ry to aseptic meningitis l r/o migraine headache; possible uncontrolled HTN contributing- lower suspicion for bacterial meningitis -CT head : Impression: No mass effect, edema or acute bleed. Fever, improving -no leukocytosis -u/a no pyuria Mild leukopenia HTN urgency Migraine Headaches HTN Plan: -Continue empiric Tamiflu #4/7 -droplets precautions -Continue empiric IV Vancomycin and Ceftriaxone #4 pending CSF, although lower suspicion for bacterial meningitis -if profile not consistent with bacterial meningitis, then can be D/c home with Tamiflu and d/c abx -For LP today -CSF analysis, cx, WNV ab -f/u cx -Monitor CBC/BMP, temperatures -droplets precautions Discussed with RN and Dr Avery Subjective Allergies: Coded Allergies: SHELLFISH DERIVED (Unverified Allergy, Unknown, 11/12/15) Subjective afebrile in >12hrs mild leukopenia Headache better Objective Vital Signs Last 24 Hour Vital Signs Date Time Temp Pulse Resp B/P (MAP) Pulse Ox O2 Delivery O2 Flow Rate FiO2 10/06/17 08:30 111 123/83 10/06/17 08:28 123/83 10/06/17 08:00 97.7 111 20 123/83 98 Room Air 10/06/17 07:41 95 20 100 Room Air 21 10/06/17 07:30 91 20 97 Room Air 21 10/06/17 07:30 21 10/06/17 04:00 98.0 91 20 125/76 95 Room Air 10/06/17 04:00 98 10/06/17 01:17 92 20 96 Room Air 21 10/06/17 01:10 21 10/06/17 01:10 96 20 96 Room Air 21 10/06/17 00:00 96 10/06/17 00:00 97.0 75 20 112/72 96 Room Air 10/05/17 21:11 100 19 95 Room Air 21 10/05/17 20:38 100 19 95 Room Air 21 10/05/17 20:38 21 10/05/17 20:00 98.2 91 20 104/63 95 Room Air 10/05/17 20:00 97 2/4/18 16:00 98.1 100 19 111/62 95 Room Air 10/05/17 16:00 100 10/05/17 13:03 100 20 100 Room Air 21 10/05/17 13:03 21 10/05/17 12:46 91 20 98 Room Air 21 10/05/17 12:00 91 10/05/17 12:00 97.9 93 20 109/64 95 Room Air Height (Feet): 5 Height (Inches): 4.00 Weight (Pounds): 230 Objective General Appearance: no apparent distress Head: normocephalic, atraumatic Eyes: bilateral eye PERRL, bilateral eye EOMI ENT: hearing grossly normal, normal pharynx, TMs + canals normal, uvula midline Neck: full range of motion, supple, no meningismus, no bony tend Respiratory: lungs clear, normal breath sounds, no rhonchi, no respiratory distress, no retraction, no accessory muscle use Cardiovascular normal peripheral pulses, regular rate, rhythm, no edema, no gallop, no JVD, no murmur Gastrointestinal: normal bowel sounds, non tender, soft, no mass, no organomegaly, non-distended, no guarding, no hernia, no pulsatile mass, no rebound Genitourinary: no CVA tenderness Musculoskeletal: normal inspection Skin: normal color, no rash, warm/dry, palpation Microbiology Date/Time Source Procedure Growth Status 10/04/17 20:33 Nasopharynx Influenza Types A,B Antigen (ROBYN) - Final Complete 10/03/17 18:38 Nasal Not Otherwise Specified Influenza Types A,B Antigen (ROBYN) - Final Complete 10/05/17 12:45 Stool Stool Culture - Preliminary NORMAL FECAL ALISIA. Resulted 10/05/17 12:45 Stool Clostridium difficile Toxin Assay - Final Resulted Laboratory Tests Test 10/05/17 12:45 10/06/17 04:45 Stool Occult Blood Pending White Blood Count 2.5 K/UL (4.8-10.8) L Red Blood Count 3.81 M/UL (4.20-5.40) L Hemoglobin 11.4 G/DL (12.0-16.0) L Hematocrit 33.5 % (37.0-47.0) L Mean Corpuscular Volume 88 FL (80-99) Mean Corpuscular Hemoglobin 29.8 PG (27.0-31.0) Mean Corpuscular Hemoglobin Concent 33.9 G/DL (32.0-36.0) Red Cell Distribution Width 13.0 % (11.6-14.8) Platelet Count 253 K/UL (150-450) Mean Platelet Volume 7.7 FL (6.5-10.1) Neutrophils (%) (Auto) % (45.0-75.0) Lymphocytes (%) (Auto) % (20.0-45.0) Monocytes (%) (Auto) % (1.0-10.0) Eosinophils (%) (Auto) % (0.0-3.0) Basophils (%) (Auto) % (0.0-2.0) Differential Total Cells Counted 100 Neutrophils % (Manual) 47 % (45-75) Lymphocytes % (Manual) 42 % (20-45) Monocytes % (Manual) 11 % (1-10) H Eosinophils % (Manual) 0 % (0-3) Basophils % (Manual) 0 % (0-2) Band Neutrophils 0 % (0-8) Platelet Estimate Adequate Platelet Morphology Normal Sodium Level 140 MMOL/L (136-145) Potassium Level 2.9 MMOL/L (3.5-5.1) L Chloride Level 104 MMOL/L (98-107) Carbon Dioxide Level 28 MMOL/L (21-32) Anion Gap 8 mmol/L (5-15) Blood Urea Nitrogen 4 mg/dL (7-18) L Creatinine 1.0 MG/DL (0.55-1.30) Estimat Glomerular Filtration Rate > 60 mL/min (>60) Glucose Level 88 MG/DL (74-106) Calcium Level 8.6 MG/DL (8.5-10.1) Current Medications Medications (Trade) Dose Ordered Sig/Katya Route PRN Reason Start Time Stop Time Status Last Admin Dose Admin Acetaminophen (Tylenol) 650 mg Q4H PRN ORAL FEVER 10/03/17 13:45 11/02/17 13:44 Acetaminophen/ Butalbital/ Caffeine (Fioricet) 1 tab Q4HR PRN ORAL For moderate Pain/headache 10/03/17 17:45 11/02/17 17:44 10/05/17 20:55 Albuterol/ Ipratropium (Albuterol/ Ipratropium) 3 ml EVERY 4 HOURS PRN HHN Shortness of Breath 10/03/17 13:45 10/08/17 13:44 Albuterol/ Ipratropium (Albuterol/ Ipratropium) 3 ml Q6HRT HHN 10/03/17 19:00 10/08/17 18:59 10/06/17 07:39 Amlodipine Besylate (Norvasc) 5 mg DAILY ORAL 10/03/17 18:45 11/02/17 18:44 10/06/17 08:30 Ceftriaxone Sodium 2 gm/ Sodium Chloride 55 ml @ 110 mls/hr EVERY 12 HOURS IVPB 10/03/17 21:00 10/10/17 23:59 10/06/17 08:27 Diltiazem HCl (Cardizem) 10 mg EVERY HOUR PRN IV heart rate more than 120, 10/03/17 13:45 11/02/17 13:44 Enalaprilat (Vasotec) 2.5 mg EVERY 6 HOURS PRN IV sbp more than 160 10/03/17 15:30 11/02/17 15:29 Ferrous Sulfate (Feosol) 325 mg BID ORAL 10/05/17 18:00 11/04/17 17:59 10/06/17 08:28 Heparin Sodium (Porcine) (Heparin 5000 units/ml) 5,000 units EVERY 12 HOURS SUBQ 10/03/17 21:00 11/02/17 20:59 10/06/17 08:29 Hydromorphone HCl (Dilaudid) 1 mg Q4H PRN IVP For Severe Pain 10/03/17 17:45 10/10/17 17:29 10/05/17 05:03 Labetalol HCl (Normodyne) 20 mg EVERY HOUR PRN IV sbp more than 160 10/03/17 13:45 11/02/17 13:44 10/03/17 15:38 Lisinopril (Prinivil) 20 mg DAILY ORAL 10/03/17 20:00 11/02/17 19:59 10/06/17 08:28 Magnesium Oxide (Mag-Ox 400mg) 400 mg BID ORAL 10/03/17 18:00 11/02/17 17:59 10/06/17 08:27 Nitroglycerin (Ntg) 0.4 mg Q5MIN X 3 DOSES PRN SL Prn Chest Pain 10/03/17 15:30 11/02/17 15:29 Nortriptyline HCl (Pamelor) 25 mg BEDTIME ORAL 10/03/17 21:00 11/02/17 20:59 10/05/17 20:54 Ondansetron HCl (Zofran) 4 mg Q6H PRN IVP Nausea & Vomiting 10/03/17 13:45 11/02/17 13:44 10/05/17 17:27 Oseltamivir Phosphate (Tamiflu) 75 mg TWICE A DAY ORAL 10/03/17 19:45 10/08/17 23:59 10/06/17 08:28 Pantoprazole (Protonix) 40 mg DAILY ORAL 10/04/17 09:00 11/03/17 08:59 10/06/17 08:28 Polyethylene Glycol (Miralax) 17 gm DAILYPRN PRN ORAL Constipation 10/03/17 13:45 11/02/17 13:44 Potassium Chloride (K-Dur) 40 meq DAILY ORAL 10/06/17 09:00 11/05/17 08:59 10/06/17 09:54 Promethazine HCl/ Codeine (Phenergan with Codeine) 5 ml Q4H PRN ORAL For Cough 10/03/17 13:45 11/02/17 13:44 Temazepam (Restoril) 15 mg HSPRN PRN ORAL Insomnia 10/03/17 13:45 10/10/17 13:44 Vancomycin HCl (Vanco rx to dose) 1 ea DAILY PRN MISC Per rx protocol 10/03/17 20:15 11/02/17 20:14 Vancomycin HCl 1 gm/Dextrose 275 ml @ 183.708 mls/hr Q8HR@0200,1000,1800 IVPB 10/05/17 18:00 10/10/17 17:59 10/06/17 09:54 Kathleen Chavez M.D. Oct 06, 2017 11:42
[2017-10-06 12:00] VITALS: BP 116/79
--- NOTE | 2017-10-06 12:45 | Neurology Progress Note ---
Interim History Interim History ROS Limited/Unobtainable: No Complaints: severe RIVERA, cough, aches/pain Events: less pain Objective Physical Exam Last Vital Signs Date Time Temp Pulse Resp B/P (MAP) Pulse Ox O2 Delivery O2 Flow Rate FiO2 10/06/17 08:30 111 123/83 10/06/17 08:00 97.7 20 98 Room Air 10/06/17 07:41 21 Laboratory Tests Test 10/05/17 12:45 10/06/17 04:45 Stool Occult Blood Pending White Blood Count 2.5 K/UL (4.8-10.8) L Red Blood Count 3.81 M/UL (4.20-5.40) L Hemoglobin 11.4 G/DL (12.0-16.0) L Hematocrit 33.5 % (37.0-47.0) L Mean Corpuscular Volume 88 FL (80-99) Mean Corpuscular Hemoglobin 29.8 PG (27.0-31.0) Mean Corpuscular Hemoglobin Concent 33.9 G/DL (32.0-36.0) Red Cell Distribution Width 13.0 % (11.6-14.8) Platelet Count 253 K/UL (150-450) Mean Platelet Volume 7.7 FL (6.5-10.1) Neutrophils (%) (Auto) % (45.0-75.0) Lymphocytes (%) (Auto) % (20.0-45.0) Monocytes (%) (Auto) % (1.0-10.0) Eosinophils (%) (Auto) % (0.0-3.0) Basophils (%) (Auto) % (0.0-2.0) Differential Total Cells Counted 100 Neutrophils % (Manual) 47 % (45-75) Lymphocytes % (Manual) 42 % (20-45) Monocytes % (Manual) 11 % (1-10) H Eosinophils % (Manual) 0 % (0-3) Basophils % (Manual) 0 % (0-2) Band Neutrophils 0 % (0-8) Platelet Estimate Adequate Platelet Morphology Normal Sodium Level 140 MMOL/L (136-145) Potassium Level 2.9 MMOL/L (3.5-5.1) L Chloride Level 104 MMOL/L (98-107) Carbon Dioxide Level 28 MMOL/L (21-32) Anion Gap 8 mmol/L (5-15) Blood Urea Nitrogen 4 mg/dL (7-18) L Creatinine 1.0 MG/DL (0.55-1.30) Estimat Glomerular Filtration Rate > 60 mL/min (>60) Glucose Level 88 MG/DL (74-106) Calcium Level 8.6 MG/DL (8.5-10.1) General: well developed, well nourished, no acute distress Head: normocophalic, atraumatic Neck: no rigidity EENT: benign Neurologic Exam Mental Status: awake, alert, oriented x4, normal cognition, good mathematical skills, normal recent memory, normal remote memory, preserved visuospatial function Stance: other Gait: other Impression/Recommendations Problems: (1) Acute viral syndrome (2) r.o viral meningitis (3) Migraine headache (4) Hypertensive emergency Status: stable Recommendations #[id number] ID eval pain control LP pend cont antibx per CHARIS QUEVEDO Oct 06, 2017 12:45
--- NOTE | 2017-10-06 14:58 | Pulmonology Progress Note ---
Assessment/Plan Problems: (1) Acute viral syndrome (2) Hypertensive emergency (3) Obesity (BMI 30-39.9) Assessment/Plan spinal tab pending symptomatic treatment dc home if LP negative. med/surg Subjective ROS Limited/Unobtainable: No Constitutional: Reports: no symptoms HEENT: Repors: no symptoms Allergies: Coded Allergies: SHELLFISH DERIVED (Unverified Allergy, Unknown, 11/12/15) Objective Last 24 Hour Vital Signs Date Time Temp Pulse Resp B/P (MAP) Pulse Ox O2 Delivery O2 Flow Rate FiO2 10/06/17 13:58 Room Air 10/06/17 13:58 Room Air 10/06/17 08:30 111 123/83 10/06/17 08:28 123/83 10/06/17 08:00 97.7 111 20 123/83 98 Room Air 10/06/17 07:41 95 20 100 Room Air 21 10/06/17 07:30 91 20 97 Room Air 21 10/06/17 07:30 21 10/06/17 04:00 98.0 91 20 125/76 95 Room Air 10/06/17 04:00 98 10/06/17 01:17 92 20 96 Room Air 21 10/06/17 01:10 21 10/06/17 01:10 96 20 96 Room Air 21 10/06/17 00:00 96 10/06/17 00:00 97.0 75 20 112/72 96 Room Air 10/05/17 21:11 100 19 95 Room Air 21 10/05/17 20:38 100 19 95 Room Air 21 10/05/17 20:38 21 10/05/17 20:00 98.2 91 20 104/63 95 Room Air 10/05/17 20:00 97 10/05/17 16:00 98.1 100 19 111/62 95 Room Air 10/05/17 16:00 100 Intake and Output 10/05/17 10/06/17 19:00 07:00 Intake Total 236 ml 566.000 ml Balance 236 ml 566.000 ml Intake Oral 236 ml 236 ml IV Total 330.000 ml # Voids 4 # Bowel Movements 1 General Appearance: WD/WN HEENT: normocephalic, atraumatic Respiratory/Chest: normal breath sounds Breasts: no masses Cardiovascular: normal peripheral pulses Abdomen: normal bowel sounds, soft, non tender Genitourinary: normal external genitalia Extremities: no cyanosis Microbiology Date/Time Source Procedure Growth Status 10/04/17 20:33 Nasopharynx Influenza Types A,B Antigen (ROBYN) - Final Complete 10/03/17 18:38 Nasal Not Otherwise Specified Influenza Types A,B Antigen (ROBYN) - Final Complete 10/05/17 12:45 Stool Stool Culture - Preliminary NORMAL FECAL ALISIA. Resulted 10/05/17 12:45 Stool Clostridium difficile Toxin Assay - Final Resulted Laboratory Tests 10/06/17 04:45: White Blood Count 2.5L, Red Blood Count 3.81L, Hemoglobin 11.4L, Hematocrit 33.5L, Mean Corpuscular Volume 88, Mean Corpuscular Hemoglobin 29.8, Mean Corpuscular Hemoglobin Concent 33.9, Red Cell Distribution Width 13.0, Platelet Count 253, Mean Platelet Volume 7.7, Neutrophils (%) (Auto) , Lymphocytes (%) ( Auto) , Monocytes (%) (Auto) , Eosinophils (%) (Auto) , Basophils (%) (Auto) , Differential Total Cells Counted 100, Neutrophils % (Manual) 47, Lymphocytes % ( Manual) 42, Monocytes % (Manual) 11H, Eosinophils % (Manual) 0, Basophils % ( Manual) 0, Band Neutrophils 0, Platelet Estimate Adequate, Platelet Morphology Normal, Sodium Level 140, Potassium Level 2.9L, Chloride Level 104, Carbon Dioxide Level 28, Anion Gap 8, Blood Urea Nitrogen 4L, Creatinine 1.0, Estimat Glomerular Filtration Rate > 60, Glucose Level 88, Calcium Level 8.6 Current Medications Medications (Trade) Dose Ordered Sig/Katya Route PRN Reason Start Time Stop Time Status Last Admin Dose Admin Acetaminophen (Tylenol) 650 mg Q4H PRN ORAL FEVER 10/03/17 13:45 11/02/17 13:44 Acetaminophen/ Butalbital/ Caffeine (Fioricet) 1 tab Q4HR PRN ORAL For moderate Pain/headache 10/03/17 17:45 11/02/17 17:44 10/05/17 20:55 Albuterol/ Ipratropium (Albuterol/ Ipratropium) 3 ml EVERY 4 HOURS PRN HHN Shortness of Breath 10/03/17 13:45 10/08/17 13:44 Albuterol/ Ipratropium (Albuterol/ Ipratropium) 3 ml Q6HRT HHN 10/03/17 19:00 10/08/17 18:59 10/06/17 07:39 Amlodipine Besylate (Norvasc) 5 mg DAILY ORAL 10/03/17 18:45 11/02/17 18:44 10/06/17 08:30 Ceftriaxone Sodium 2 gm/ Sodium Chloride 55 ml @ 110 mls/hr EVERY 12 HOURS IVPB 10/03/17 21:00 10/10/17 23:59 10/06/17 08:27 Diltiazem HCl (Cardizem) 10 mg EVERY HOUR PRN IV heart rate more than 120, 10/03/17 13:45 11/02/17 13:44 Enalaprilat (Vasotec) 2.5 mg EVERY 6 HOURS PRN IV sbp more than 160 10/03/17 15:30 11/02/17 15:29 Ferrous Sulfate (Feosol) 325 mg BID ORAL 10/05/17 18:00 11/04/17 17:59 10/06/17 08:28 Heparin Sodium (Porcine) (Heparin 5000 units/ml) 5,000 units EVERY 12 HOURS SUBQ 10/03/17 21:00 11/02/17 20:59 10/06/17 08:29 Hydromorphone HCl (Dilaudid) 1 mg Q4H PRN IVP For Severe Pain 10/03/17 17:45 10/10/17 17:29 10/05/17 05:03 Labetalol HCl (Normodyne) 20 mg EVERY HOUR PRN IV sbp more than 160 10/03/17 13:45 11/02/17 13:44 10/03/17 15:38 Lisinopril (Prinivil) 20 mg DAILY ORAL 10/03/17 20:00 11/02/17 19:59 10/06/17 08:28 Magnesium Oxide (Mag-Ox 400mg) 400 mg BID ORAL 10/03/17 18:00 11/02/17 17:59 10/06/17 08:27 Nitroglycerin (Ntg) 0.4 mg Q5MIN X 3 DOSES PRN SL Prn Chest Pain 10/03/17 15:30 11/02/17 15:29 Nortriptyline HCl (Pamelor) 25 mg BEDTIME ORAL 10/03/17 21:00 11/02/17 20:59 10/05/17 20:54 Ondansetron HCl (Zofran) 4 mg Q6H PRN IVP Nausea & Vomiting 10/03/17 13:45 11/02/17 13:44 10/05/17 17:27 Oseltamivir Phosphate (Tamiflu) 75 mg TWICE A DAY ORAL 10/03/17 19:45 10/08/17 23:59 10/06/17 08:28 Pantoprazole (Protonix) 40 mg DAILY ORAL 10/04/17 09:00 11/03/17 08:59 10/06/17 08:28 Polyethylene Glycol (Miralax) 17 gm DAILYPRN PRN ORAL Constipation 10/03/17 13:45 11/02/17 13:44 Potassium Chloride (K-Dur) 40 meq DAILY ORAL 10/06/17 09:00 11/05/17 08:59 10/06/17 09:54 Promethazine HCl/ Codeine (Phenergan with Codeine) 5 ml Q4H PRN ORAL For Cough 10/03/17 13:45 11/02/17 13:44 Temazepam (Restoril) 15 mg HSPRN PRN ORAL Insomnia 10/03/17 13:45 10/10/17 13:44 Vancomycin HCl (Vanco rx to dose) 1 ea DAILY PRN MISC Per rx protocol 10/03/17 20:15 11/02/17 20:14 Vancomycin HCl 1 gm/Dextrose 275 ml @ 183.708 mls/hr Q8HR@0200,1000,1800 IVPB 10/05/17 18:00 10/10/17 17:59 10/06/17 09:54 JAY JAY JONES Oct 06, 2017 14:58
--- NOTE | 2017-10-06 15:31 | Pre-Procedure Note/Attestation ---
Pre-Procedure Note/Attestation Complete Prior to Procedure Planned Procedure: not applicable Procedure Narrative: lumbar puncture Indications for Procedure Pre-Operative Diagnosis: headaches Attestation I attest that I discussed the nature of the procedure; its benefits; risks and complications; and alternatives (and the risks and benefits of such alternatives ), prior to the procedure, with the patient (or the patient's legal screening representative). I attest that, if there was a reasonable possibility of needing a blood transfusion, the patient (or the patient's legal screening representative) was given the [facility] standardized written summary, pursuant to the Nicola Mara Blood Safety Act ([place] Health and Safety Code # 1645, as amended). I attest that I re-evaluated the patient just prior to the surgery and that there has been no change in the patient's H&P, except as documented below: JIL CHENG M.D. Oct 06, 2017 15:31
--- NOTE | 2017-10-06 15:49 | Brief Operative Note ---
Immediate Post Operative Note Operative Note Pre-op Diagnosis: headaches Procedure: LP Post-op Diagnosis: same as pre-op Findings: consistent w/pre-op dx studies - opening pressure 21 Surgeon: Johnny CHENG Anesthesia: local Specimen: yes - 8 ml clear CSF Complications: none Condition: stable Fluids: nione Estimated Blood Loss: none Implant(s) used?: No JIL CHENG M.D. Oct 06, 2017 15:49
[2017-10-06 16:00] VITALS: BP 133/72
[2017-10-06 16:19] LABS: INR 0.9 (0.9-1.1)
--- NOTE | 2017-10-06 17:07 | Diagnostic Imaging Report ---
Indication: Headache Technique: Relevant prior imaging studies reviewed. Informed consent obtained prior to commencement of the procedure. Procedure timeout performed. Fluoroscopy used to localize optimal puncture site. Sterile prepping and draping. Local anesthesia with 1% lidocaine. Under real-time prostate guidance, a long 22-gauge spinal needle was directed into the thecal sac. Orthogonal images confirmed satisfactory position. The stylette was removed. Spontaneous return of clear cerebrospinal fluid was observed. Opening pressure obtained, found to be 23 cm of H2O. Total 8 mL of clear cerebral spinal fluid obtained, divided into 4 vials, sent to the lab for analysis. Closing pressure obtained, found to be 17 cm H2O. The patient tolerated the procedure well, without immediate complication. Total fluoroscopy time 1.1 minutes. Total dose area product 29 dGycm2 Comparison: none Findings: Opening pressure 23, closing pressure 17 cm H2O Impression: Successful fluoroscopy-guided lumbar puncture, as described
--- NOTE | 2017-10-06 19:40 | Cardiology Progress Note ---
Assessment/Plan Assessment/Plan htn now controlled non complaince obeisty migraine uri on norvasc and acei combination bp controlled neuro eval f r head ache had lp to day flu swab neg bp is fien nwo Subjective Cardiovascular: Denies: chest pain, lightheadedness Respiratory: Denies: shortness of breath Gastrointestinal/Abdominal: Denies: abdominal pain Genitourinary: Denies: burning Objective Last 24 Hour Vital Signs Date Time Temp Pulse Resp B/P (MAP) Pulse Ox O2 Delivery O2 Flow Rate FiO2 10/06/17 19:18 93 20 97 Room Air 21 10/06/17 16:00 99 10/06/17 16:00 98.2 98 18 133/72 95 Room Air 10/06/17 13:58 Room Air 10/06/17 13:58 Room Air 10/06/17 12:00 99 10/06/17 12:00 98.1 93 18 116/79 95 Room Air 10/06/17 08:30 111 123/83 10/06/17 08:28 123/83 10/06/17 08:00 97.7 111 20 123/83 98 Room Air 10/06/17 08:00 97 10/06/17 07:41 95 20 100 Room Air 10/06/17 07:30 91 20 97 Room Air 21 10/06/17 07:30 21 10/06/17 04:00 98.0 91 20 125/76 95 Room Air 10/06/17 04:00 98 10/06/17 01:17 92 20 96 Room Air 21 10/06/17 01:10 21 10/06/17 01:10 96 20 96 Room Air 10/06/17 00:00 96 10/06/17 00:00 97.0 75 20 112/72 96 Room Air 10/05/17 21:11 100 19 95 Room Air 21 10/05/17 20:38 100 19 95 Room Air 21 10/05/17 20:38 21 10/05/17 20:00 98.2 91 20 104/63 95 Room Air 10/05/17 20:00 97 General Appearance: alert Neck: supple Cardiovascular: normal rate, regular rhythm Respiratory/Chest: lungs clear Abdomen: non tender, soft Extremities: no swelling Intake and Output 10/05/17 10/06/17 19:00 07:00 Intake Total 236 ml 566.000 ml Balance 236 ml 566.000 ml Intake Oral 236 ml 236 ml IV Total 330.000 ml # Voids 4 # Bowel Movements 1 Laboratory Tests Test 10/06/17 04:45 10/06/17 14:30 10/06/17 15:45 10/06/17 17:15 White Blood Count 2.5 K/UL (4.8-10.8) L Red Blood Count 3.81 M/UL (4.20-5.40) L Hemoglobin 11.4 G/DL (12.0-16.0) L Hematocrit 33.5 % (37.0-47.0) L Mean Corpuscular Volume 88 FL (80-99) Mean Corpuscular Hemoglobin 29.8 PG (27.0-31.0) Mean Corpuscular Hemoglobin Concent 33.9 G/DL (32.0-36.0) Red Cell Distribution Width 13.0 % (11.6-14.8) Platelet Count 253 K/UL (150-450) Mean Platelet Volume 7.7 FL (6.5-10.1) Neutrophils (%) (Auto) % (45.0-75.0) Lymphocytes (%) (Auto) % (20.0-45.0) Monocytes (%) (Auto) % (1.0-10.0) Eosinophils (%) (Auto) % (0.0-3.0) Basophils (%) (Auto) % (0.0-2.0) Differential Total Cells Counted 100 Neutrophils % (Manual) 47 % (45-75) Lymphocytes % (Manual) 42 % (20-45) Monocytes % (Manual) 11 % (1-10) H Eosinophils % (Manual) 0 % (0-3) Basophils % (Manual) 0 % (0-2) Band Neutrophils 0 % (0-8) Platelet Estimate Adequate Platelet Morphology Normal Sodium Level 140 MMOL/L (136-145) Potassium Level 2.9 MMOL/L (3.5-5.1) L Chloride Level 104 MMOL/L (98-107) Carbon Dioxide Level 28 MMOL/L (21-32) Anion Gap 8 mmol/L (5-15) Blood Urea Nitrogen 4 mg/dL (7-18) L Creatinine 1.0 MG/DL (0.55-1.30) Estimat Glomerular Filtration Rate > 60 mL/min (>60) Glucose Level 88 MG/DL (74-106) Calcium Level 8.6 MG/DL (8.5-10.1) Prothrombin Time 9.4 SEC (9.30-11.50) Prothromb Time International Ratio 0.9 (0.9-1.1) Activated Partial Thromboplast Time 27 SEC (23-33) CSF Appearance Clear CSF Color Colorless CSF WBC 1 /CU MM (0-5) CSF RBC 8 /CU MM CSF Neutrophils % % CSF Lymphocytes % % CSF Monocytes % % CSF Crenated Cells % CSF Glucose 58 mg/dL (50-80) CSF Total Protein 28 MG/DL (15-45) CSF VDRL Pending Vancomycin Level Trough 14.3 ug/mL (5.0-12.0) H Microbiology Date/Time Source Procedure Growth Status 10/04/17 20:33 Nasopharynx Influenza Types A,B Antigen (ROBYN) - Final Complete 10/05/17 12:45 Stool Stool Culture - Preliminary NORMAL FECAL ALISIA. Resulted 10/05/17 12:45 Stool Clostridium difficile Toxin Assay - Final Resulted JOE CHILD Oct 06, 2017 19:40
[2017-10-06 20:00] VITALS: BP 144/78
[2017-10-06] MEDS: Nortriptyline 25mg cap ORAL SCH (20:53)
[2017-10-07] VITALS: BP 123/80
[2017-10-07] MEDS: Albuterol/Ipratropium 3ml neb HHN SCH ×3 (01:14→13:18)
[2017-10-07] MEDS ORDERED: Vancomycin 1250mg/D5W 250ml IVPB SCH (02:00)
[2017-10-07] MEDS ORDERED: Enalaprilat 2.5mg/2ml Inj IV PRN (06:00)
[2017-10-07] MEDS ORDERED: Labetalol 5mg/ml 20ml vial IV PRN (06:00)
[2017-10-07] MEDS ORDERED: dilTIAZem HCl 25mg/5ml Inj IV PRN (06:00)
[2017-10-07] MEDS ORDERED: Nitroglycerin Subl 0.4mg tab SL PRN (06:00)
[2017-10-07 08:00] VITALS: BP 123/76
[2017-10-07 08:50] LABS: HEMATOCRIT 33.3 % (37.0-47.0); HEMOGLOBIN 11.2 G/DL (12.0-16.0); MEAN CORPUSCULAR VOLUME 89 FL (80-99); PLATELET COUNT 260 K/UL (150-450); RED BLOOD COUNT 3.75 M/UL (4.20-5.40); RED CELL DISTRIBUTION WIDTH 12.8 % (11.6-14.8); WHITE BLOOD COUNT 2.9 K/UL (4.8-10.8)
[2017-10-07] MEDS ORDERED: Lisinopril 20mg tab ORAL SCH (09:00)
[2017-10-07] MEDS ORDERED: cefTRIAXone 2 GM in NS 55 ML IVPB SCH (09:00)
[2017-10-07] MEDS ORDERED: Albuterol/Ipratropium 3ml neb HHN PRN (09:00)
[2017-10-07] MEDS ORDERED: Heparin 5000 units/ml inj SUBQ SCH (09:00)
[2017-10-07] MEDS: Magnesium Oxide 400mg tab ORAL SCH ×2 (09:16→17:16)
[2017-10-07] MEDS: Oseltamivir 75mg cap ORAL SCH ×2 (09:16→17:16)
[2017-10-07] MEDS: cefTRIAXone 2 GM in NS 55 ML IVPB SCH (09:24)
[2017-10-07] MEDS ORDERED: Promethazine/Codeine 5ml UD ORAL PRN (09:45)
[2017-10-07] MEDS ORDERED: HYDROmorphone 1mg/ml Carpuject IVP PRN (09:45)
[2017-10-07] MEDS ORDERED: Vancomycin 1250mg/D5W 250ml 250 ML IVPB SCH (10:00)
[2017-10-07 10:01] LABS: ANION GAP 10 mmol/L (5-15); BLOOD UREA NITROGEN 3 mg/dL (7-18); CALCIUM 8.6 MG/DL (8.5-10.1); CARBON DIOXIDE 25 MMOL/L (21-32); CHLORIDE 106 MMOL/L (98-107); CREATININE 0.8 MG/DL (0.55-1.30); POTASSIUM 3.4 MMOL/L (3.5-5.1); SODIUM 141 MMOL/L (136-145)
--- NOTE | 2017-10-07 10:45 | Infectious Diseases Prog Note ---
Assessment/Plan Assessment/Plan Assessment: Viral syndrome- suspect Flu despite neg rapid test influenza, rapid test neg x2 CXR no acute disease -CRP 3.9 -HIV ab (rapid) neg, VL p -WNV ab neg serum RIVERA-2ry to Influenza- CSF not consistent with meningitis; improving -CSF: WBC 1, RBC 8, gluc 58, prot 28; cx stain neg, cx NTD; OP 23cm H2O -CT head : Impression: No mass effect, edema or acute bleed. Fever, improving -no leukocytosis -u/a no pyuria Mild leukopenia HTN urgency Migraine Headaches HTN Plan: -Continue empiric Tamiflu #5/7 -droplets precautions -D/c empiric IV Vancomycin and Ceftriaxone #5 as CSF normal -f/u cx -Monitor CBC/BMP, temperatures -droplets precautions Discussed with RN and Dr Aveyr Subjective Allergies: Coded Allergies: SHELLFISH DERIVED (Unverified Allergy, Unknown, 11/12/15) Subjective afebrile in >48hrs mild leukopenia Headache better feels better s/p LP yesterday, CSF normal Objective Vital Signs Last 24 Hour Vital Signs Date Time Temp Pulse Resp B/P (MAP) Pulse Ox O2 Delivery O2 Flow Rate FiO2 10/07/17 09:25 123/76 10/07/17 09:25 99 123/76 10/07/17 08:08 99 20 98 Room Air 21 10/07/17 08:00 97.9 96 20 123/76 99 10/07/17 07:57 91 20 97 Room Air 21 10/07/17 04:00 89 10/07/17 01:21 99 18 100 Room Air 21 10/07/17 01:14 99 20 99 Room Air 21 10/07/17 00:00 91 10/07/17 00:00 98.1 92 19 123/80 100 Room Air 10/06/17 20:00 100 10/06/17 20:00 97.9 87 20 144/78 100 Room Air 10/06/17 19:27 21 10/06/17 19:27 96 20 100 Room Air 21 10/06/17 19:18 93 20 97 Room Air 21 10/06/17 16:00 99 10/06/17 16:00 98.2 98 18 133/72 95 Room Air 10/06/17 13:58 Room Air 10/06/17 13:58 Room Air 10/06/17 12:00 99 10/06/17 12:00 98.1 93 18 116/79 95 Room Air Height (Feet): 5 Height (Inches): 4.00 Weight (Pounds): 230 Objective General Appearance: no apparent distress Head: normocephalic, atraumatic Eyes: bilateral eye PERRL, bilateral eye EOMI ENT: hearing grossly normal, normal pharynx, TMs + canals normal, uvula midline Neck: full range of motion, supple, no meningismus, no bony tend Respiratory: lungs clear, normal breath sounds, no rhonchi, no respiratory distress, no retraction, no accessory muscle use Cardiovascular normal peripheral pulses, regular rate, rhythm, no edema, no gallop, no JVD, no murmur Gastrointestinal: normal bowel sounds, non tender, soft, no mass, no organomegaly, non-distended, no guarding, no hernia, no pulsatile mass, no rebound Genitourinary: no CVA tenderness Musculoskeletal: normal inspection Skin: normal color, no rash, warm/dry, palpation Microbiology Date/Time Source Procedure Growth Status 10/06/17 15:45 Cerebral Spinal Fluid Gram Stain Pending Resulted 10/06/17 15:45 Cerebral Spinal Fluid CSF Culture - Preliminary NO GROWTH Resulted 10/04/17 20:33 Nasopharynx Influenza Types A,B Antigen (ROBYN) - Final Complete 10/05/17 12:45 Stool Stool Culture - Preliminary NORMAL FECAL ALISIA. Resulted 10/05/17 12:45 Stool Clostridium difficile Toxin Assay - Final Resulted Laboratory Tests Test 10/06/17 14:30 10/06/17 15:45 10/06/17 17:15 10/07/17 08:20 Prothrombin Time 9.4 SEC (9.30-11.50) Prothromb Time International Ratio 0.9 (0.9-1.1) Activated Partial Thromboplast Time 27 SEC (23-33) CSF Appearance Clear CSF Color Colorless CSF WBC 1 /CU MM (0-5) CSF RBC 8 /CU MM CSF Neutrophils % % CSF Lymphocytes % % CSF Monocytes % % CSF Crenated Cells % CSF Glucose 58 mg/dL (50-80) CSF Total Protein 28 MG/DL (15-45) CSF VDRL Pending Vancomycin Level Trough 14.3 ug/mL (5.0-12.0) H White Blood Count 2.9 K/UL (4.8-10.8) L Red Blood Count 3.75 M/UL (4.20-5.40) L Hemoglobin 11.2 G/DL (12.0-16.0) L Hematocrit 33.3 % (37.0-47.0) L Mean Corpuscular Volume 89 FL (80-99) Mean Corpuscular Hemoglobin 29.8 PG (27.0-31.0) Mean Corpuscular Hemoglobin Concent 33.6 G/DL (32.0-36.0) Red Cell Distribution Width 12.8 % (11.6-14.8) Platelet Count 260 K/UL (150-450) Mean Platelet Volume 7.8 FL (6.5-10.1) Neutrophils (%) (Auto) % (45.0-75.0) Lymphocytes (%) (Auto) % (20.0-45.0) Monocytes (%) (Auto) % (1.0-10.0) Eosinophils (%) (Auto) % (0.0-3.0) Basophils (%) (Auto) % (0.0-2.0) Neutrophils % (Manual) Pending Lymphocytes % (Manual) Pending Platelet Estimate Pending Platelet Morphology Pending Sodium Level 141 MMOL/L (136-145) Potassium Level 3.4 MMOL/L (3.5-5.1) L Chloride Level 106 MMOL/L (98-107) Carbon Dioxide Level 25 MMOL/L (21-32) Anion Gap 10 mmol/L (5-15) Blood Urea Nitrogen 3 mg/dL (7-18) L Creatinine 0.8 MG/DL (0.55-1.30) Estimat Glomerular Filtration Rate > 60 mL/min (>60) Glucose Level 92 MG/DL (74-106) Calcium Level 8.6 MG/DL (8.5-10.1) Current Medications Medications (Trade) Dose Ordered Sig/Katya Route PRN Reason Start Time Stop Time Status Last Admin Dose Admin Acetaminophen (Tylenol) 650 mg Q4H PRN ORAL FEVER 10/07/17 09:45 11/02/17 13:44 Acetaminophen/ Butalbital/ Caffeine (Fioricet) 1 tab Q4H PRN ORAL For moderate Pain/headache 10/07/17 09:00 11/06/17 08:59 Albuterol/ Ipratropium (Albuterol/ Ipratropium) 3 ml Q4H PRN HHN Shortness of Breath 10/07/17 09:00 10/12/17 08:59 Albuterol/ Ipratropium (Albuterol/ Ipratropium) 3 ml Q6HRT HHN 10/07/17 07:00 10/08/17 18:59 10/07/17 07:57 Amlodipine Besylate (Norvasc) 5 mg DAILY ORAL 10/07/17 09:00 11/02/17 18:44 10/07/17 09:25 Ceftriaxone Sodium 2 gm/ Sodium Chloride 55 ml @ 110 mls/hr EVERY 12 HOURS IVPB 10/07/17 09:00 10/10/17 23:59 10/07/17 09:27 Diltiazem HCl (Cardizem) 10 mg Q1H PRN IV heart rate more than 120, 10/07/17 06:00 11/06/17 05:59 Enalaprilat (Vasotec) 2.5 mg Q6H PRN IV sbp more than 160 10/07/17 06:00 11/06/17 05:59 Ferrous Sulfate (Feosol) 325 mg BID ORAL 10/07/17 09:00 11/04/17 17:59 10/07/17 09:15 Heparin Sodium (Porcine) (Heparin 5000 units/ml) 5,000 units EVERY 12 HOURS SUBQ 10/07/17 09:00 11/02/17 20:59 Hydromorphone HCl (Dilaudid) 1 mg Q4H PRN IVP For Severe Pain 10/07/17 09:45 10/10/17 17:29 Labetalol HCl (Normodyne) 20 mg Q1H PRN IV sbp more than 160 10/07/17 06:00 11/06/17 05:59 Lisinopril (Prinivil) 20 mg DAILY ORAL 10/07/17 09:00 11/02/17 19:59 10/07/17 09:25 Magnesium Oxide (Mag-Ox 400mg) 400 mg BID ORAL 10/07/17 09:00 11/02/17 17:59 10/07/17 09:16 Nitroglycerin (Ntg) 0.4 mg Q5MIN X 3 DOSES PRN SL Prn Chest Pain 10/07/17 06:00 11/02/17 15:29 Nortriptyline HCl (Pamelor) 25 mg BEDTIME ORAL 10/07/17 21:00 11/02/17 20:59 Ondansetron HCl (Zofran) 4 mg Q6H PRN IVP Nausea & Vomiting 10/07/17 07:45 11/02/17 13:44 Oseltamivir Phosphate (Tamiflu) 75 mg TWICE A DAY ORAL 10/07/17 09:00 10/08/17 23:59 10/07/17 09:16 Pantoprazole (Protonix) 40 mg ACBREAKFAST ORAL 10/07/17 06:30 11/06/17 06:29 10/07/17 06:49 Polyethylene Glycol (Miralax) 17 gm DAILYPRN PRN ORAL Constipation 10/07/17 13:45 11/02/17 13:44 Potassium Chloride (K-Dur) 40 meq DAILY ORAL 10/07/17 09:00 11/05/17 08:59 10/07/17 09:16 Promethazine HCl/ Codeine (Phenergan with Codeine) 5 ml Q4H PRN ORAL For Cough 10/07/17 09:45 11/02/17 13:44 Temazepam (Restoril) 15 mg HSPRN PRN ORAL Insomnia 10/07/17 13:45 10/10/17 13:44 Vancomycin HCl (Vanco rx to dose) 1 ea DAILY PRN MISC Per rx protocol 10/07/17 09:00 11/02/17 20:14 Vancomycin HCl/ Dextrose 250 ml @ 166.667 mls/hr Q8HR@0200,1000,1800 IVPB 10/07/17 10:00 10/12/17 01:59 Kathleen Chavez M.D. Oct 07, 2017 10:44
--- NOTE | 2017-10-07 11:38 | GI Progress Note ---
Assessment/Plan Problems: (1) Iron deficiency anemia ICD Codes: D50.9 - Iron deficiency anemia, unspecified SNOMED: 87772853 (2) Obesity (BMI 30-39.9) ICD Codes: E66.9 - Obesity, unspecified SNOMED: 222704097, 296528355 (3) r.o viral meningitis Status: stable Status Narrative Discussed with Dr. Good. Assessment/Plan marijuana positive anemia work up reviewed >> start IV iron cdiff negative fu stool studies prn transfusions fu labs Subjective Gastrointestinal/Abdominal: Reports: no symptoms Objective Last 24 Hour Vital Signs Date Time Temp Pulse Resp B/P (MAP) Pulse Ox O2 Delivery O2 Flow Rate FiO2 10/07/17 09:25 123/76 10/07/17 09:25 99 123/76 10/07/17 08:08 99 20 98 Room Air 21 10/07/17 08:00 97.9 96 20 123/76 99 10/07/17 07:57 91 20 97 Room Air 21 10/07/17 04:00 89 10/07/17 01:21 99 18 100 Room Air 21 10/07/17 01:14 99 20 99 Room Air 21 10/07/17 00:00 91 10/07/17 00:00 98.1 92 19 123/80 100 Room Air 10/06/17 20:00 100 10/06/17 20:00 97.9 87 20 144/78 100 Room Air 10/06/17 19:27 21 10/06/17 19:27 96 20 100 Room Air 21 10/06/17 19:18 93 20 97 Room Air 21 10/06/17 16:00 99 10/06/17 16:00 98.2 98 18 133/72 95 Room Air 10/06/17 13:58 Room Air 10/06/17 13:58 Room Air 10/06/17 12:00 99 10/06/17 12:00 98.1 93 18 116/79 95 Room Air Intake and Output 10/06/17 10/07/17 19:00 07:00 Intake Total 240 ml 240 ml Balance 240 ml 240 ml Intake Oral 240 ml 240 ml # Voids 3 2 Laboratory Tests Test 10/06/17 14:30 10/06/17 15:45 10/06/17 17:15 10/07/17 08:20 Prothrombin Time 9.4 SEC (9.30-11.50) Prothromb Time International Ratio 0.9 (0.9-1.1) Activated Partial Thromboplast Time 27 SEC (23-33) CSF Appearance Clear CSF Color Colorless CSF WBC 1 /CU MM (0-5) CSF RBC 8 /CU MM CSF Neutrophils % % CSF Lymphocytes % % CSF Monocytes % % CSF Crenated Cells % CSF Glucose 58 mg/dL (50-80) CSF Total Protein 28 MG/DL (15-45) CSF VDRL Pending Vancomycin Level Trough 14.3 ug/mL (5.0-12.0) H White Blood Count 2.9 K/UL (4.8-10.8) L Red Blood Count 3.75 M/UL (4.20-5.40) L Hemoglobin 11.2 G/DL (12.0-16.0) L Hematocrit 33.3 % (37.0-47.0) L Mean Corpuscular Volume 89 FL (80-99) Mean Corpuscular Hemoglobin 29.8 PG (27.0-31.0) Mean Corpuscular Hemoglobin Concent 33.6 G/DL (32.0-36.0) Red Cell Distribution Width 12.8 % (11.6-14.8) Platelet Count 260 K/UL (150-450) Mean Platelet Volume 7.8 FL (6.5-10.1) Neutrophils (%) (Auto) % (45.0-75.0) Lymphocytes (%) (Auto) % (20.0-45.0) Monocytes (%) (Auto) % (1.0-10.0) Eosinophils (%) (Auto) % (0.0-3.0) Basophils (%) (Auto) % (0.0-2.0) Differential Total Cells Counted 100 Neutrophils % (Manual) 49 % (45-75) Lymphocytes % (Manual) 38 % (20-45) Monocytes % (Manual) 13 % (1-10) H Eosinophils % (Manual) 0 % (0-3) Basophils % (Manual) 0 % (0-2) Band Neutrophils 0 % (0-8) Platelet Estimate Adequate Platelet Morphology Normal Hypochromasia 1+ Sodium Level 141 MMOL/L (136-145) Potassium Level 3.4 MMOL/L (3.5-5.1) L Chloride Level 106 MMOL/L (98-107) Carbon Dioxide Level 25 MMOL/L (21-32) Anion Gap 10 mmol/L (5-15) Blood Urea Nitrogen 3 mg/dL (7-18) L Creatinine 0.8 MG/DL (0.55-1.30) Estimat Glomerular Filtration Rate > 60 mL/min (>60) Glucose Level 92 MG/DL (74-106) Calcium Level 8.6 MG/DL (8.5-10.1) Microbiology Date/Time Source Procedure Growth Status 10/06/17 15:45 Cerebral Spinal Fluid Gram Stain Pending Resulted 10/06/17 15:45 Cerebral Spinal Fluid CSF Culture - Preliminary NO GROWTH Resulted Height (Feet): 5 Height (Inches): 4.00 Weight (Pounds): 230 General Appearance: WD/WN, no apparent distress, alert, obese Cardiovascular: normal rate Respiratory/Chest: normal breath sounds, no respiratory distress Abdominal Exam: normal bowel sounds, non tender, soft Extremities: normal range of motion, non-tender Deborah Salinas N.P. Oct 07, 2017 11:38
[2017-10-07 12:00] VITALS: BP 134/85
[2017-10-07] MEDS ORDERED: Miralax 17gm pkt ORAL PRN (13:45)
[2017-10-07] MEDS ORDERED: TAMIFLU75 MG ORAL (15:54)
[2017-10-07] MEDS ORDERED: NORVASC5 MG ORAL (15:54)
[2017-10-07] MEDS ORDERED: LISINOPRIL20 MG ORAL (15:54)
--- NOTE | 2017-10-07 15:55 | Pulmonology Progress Note ---
Assessment/Plan Problems: (1) Acute viral syndrome (2) Hypertensive emergency (3) Obesity (BMI 30-39.9) Assessment/Plan spinal tab pending symptomatic treatment dc home if LP negative. med/surg Subjective ROS Limited/Unobtainable: No Constitutional: Reports: no symptoms HEENT: Repors: no symptoms Respiratory: Reports: no symptoms Allergies: Coded Allergies: SHELLFISH DERIVED (Unverified Allergy, Unknown, 11/12/15) Objective Last 24 Hour Vital Signs Date Time Temp Pulse Resp B/P (MAP) Pulse Ox O2 Delivery O2 Flow Rate FiO2 10/07/17 13:32 95 20 97 Room Air 21 10/07/17 13:18 95 20 97 Room Air 21 10/07/17 12:00 97.3 92 20 134/85 99 10/07/17 09:25 123/76 10/07/17 09:25 99 123/76 10/07/17 08:08 99 20 98 Room Air 21 10/07/17 08:00 97.9 96 20 123/76 99 10/07/17 07:57 91 20 97 Room Air 21 10/07/17 04:00 89 10/07/17 01:21 99 18 100 Room Air 21 10/07/17 01:14 99 20 99 Room Air 21 10/07/17 00:00 91 10/07/17 00:00 98.1 92 19 123/80 100 Room Air 10/06/17 20:00 100 10/06/17 20:00 97.9 87 20 144/78 100 Room Air 10/06/17 19:27 21 10/06/17 19:27 96 20 100 Room Air 21 10/06/17 19:18 93 20 97 Room Air 21 10/06/17 16:00 99 10/06/17 16:00 98.2 98 18 133/72 95 Room Air Intake and Output 10/06/17 10/07/17 19:00 07:00 Intake Total 240 ml 240 ml Balance 240 ml 240 ml Intake Oral 240 ml 240 ml # Voids 3 2 Objective General Appearance: no apparent distress, alert, poor eye contact HEENT: normocephalic, atraumatic, anicteric, mucous membranes moist Neck: non-tender, normal alignment, supple Respiratory/Chest: lungs clear, no respiratory distress, no accessory muscle use Cardiovascular/Chest: normal peripheral pulses, normal rate, no JVD Abdomen: normal bowel sounds, non tender, soft Extremities: non-tender, no calf tenderness, normal capillary refill Neurologic: alert, responsive, [employer] General Appearance: WD/WN Microbiology Date/Time Source Procedure Growth Status 10/06/17 15:45 Cerebral Spinal Fluid Gram Stain - Final Resulted 10/06/17 15:45 Cerebral Spinal Fluid CSF Culture - Preliminary NO GROWTH Resulted 10/04/17 20:33 Nasopharynx Influenza Types A,B Antigen (ROBYN) - Final Complete 10/05/17 12:45 Stool Stool Culture - Preliminary NORMAL FECAL ALISIA. Resulted 10/05/17 12:45 Stool Clostridium difficile Toxin Assay - Final Resulted Laboratory Tests 10/06/17 17:15: Vancomycin Level Trough 14.3H 10/07/17 08:20: White Blood Count 2.9L, Red Blood Count 3.75L, Hemoglobin 11.2L, Hematocrit 33.3L, Mean Corpuscular Volume 89, Mean Corpuscular Hemoglobin 29.8, Mean Corpuscular Hemoglobin Concent 33.6, Red Cell Distribution Width 12.8, Platelet Count 260, Mean Platelet Volume 7.8, Neutrophils (%) (Auto) , Lymphocytes (%) ( Auto) , Monocytes (%) (Auto) , Eosinophils (%) (Auto) , Basophils (%) (Auto) , Differential Total Cells Counted 100, Neutrophils % (Manual) 49, Lymphocytes % ( Manual) 38, Monocytes % (Manual) 13H, Eosinophils % (Manual) 0, Basophils % ( Manual) 0, Band Neutrophils 0, Platelet Estimate Adequate, Platelet Morphology Normal, Hypochromasia 1+, Sodium Level 141, Potassium Level 3.4L, Chloride Level 106, Carbon Dioxide Level 25, Anion Gap 10, Blood Urea Nitrogen 3L, Creatinine 0.8, Estimat Glomerular Filtration Rate > 60, Glucose Level 92, Calcium Level 8.6 Current Medications Medications (Trade) Dose Ordered Sig/Katya Route PRN Reason Start Time Stop Time Status Last Admin Dose Admin Acetaminophen (Tylenol) 650 mg Q4H PRN ORAL FEVER 10/07/17 09:45 11/02/17 13:44 Acetaminophen/ Butalbital/ Caffeine (Fioricet) 1 tab Q4H PRN ORAL For moderate Pain/headache 10/07/17 09:00 11/06/17 08:59 Albuterol/ Ipratropium (Albuterol/ Ipratropium) 3 ml Q4H PRN HHN Shortness of Breath 10/07/17 09:00 10/12/17 08:59 Albuterol/ Ipratropium (Albuterol/ Ipratropium) 3 ml Q6HRT HHN 10/07/17 07:00 10/08/17 18:59 10/07/17 13:18 Amlodipine Besylate (Norvasc) 5 mg DAILY ORAL 10/07/17 09:00 11/02/17 18:44 10/07/17 09:25 Enalaprilat (Vasotec) 2.5 mg Q6H PRN IV sbp more than 160 10/07/17 06:00 11/06/17 05:59 Ferrous Sulfate (Feosol) 325 mg BID ORAL 10/07/17 09:00 11/04/17 17:59 10/07/17 09:15 Heparin Sodium (Porcine) (Heparin 5000 units/ml) 5,000 units EVERY 12 HOURS SUBQ 10/07/17 09:00 11/02/17 20:59 Hydromorphone HCl (Dilaudid) 1 mg Q4H PRN IVP For Severe Pain 10/07/17 09:45 10/10/17 17:29 Lisinopril (Prinivil) 20 mg DAILY ORAL 10/07/17 09:00 11/02/17 19:59 10/07/17 09:25 Magnesium Oxide (Mag-Ox 400mg) 400 mg BID ORAL 10/07/17 09:00 11/02/17 17:59 10/07/17 09:16 Nitroglycerin (Ntg) 0.4 mg Q5MIN X 3 DOSES PRN SL Prn Chest Pain 10/07/17 06:00 11/02/17 15:29 Nortriptyline HCl (Pamelor) 25 mg BEDTIME ORAL 10/07/17 21:00 11/02/17 20:59 Ondansetron HCl (Zofran) 4 mg Q6H PRN IVP Nausea & Vomiting 10/07/17 07:45 11/02/17 13:44 Oseltamivir Phosphate (Tamiflu) 75 mg TWICE A DAY ORAL 10/07/17 09:00 10/08/17 23:59 10/07/17 09:16 Pantoprazole (Protonix) 40 mg ACBREAKFAST ORAL 10/07/17 06:30 11/06/17 06:29 10/07/17 06:49 Polyethylene Glycol (Miralax) 17 gm DAILYPRN PRN ORAL Constipation 10/07/17 13:45 11/02/17 13:44 Potassium Chloride (K-Dur) 40 meq DAILY ORAL 10/07/17 09:00 11/05/17 08:59 10/07/17 09:16 Promethazine HCl/ Codeine (Phenergan with Codeine) 5 ml Q4H PRN ORAL For Cough 10/07/17 09:45 11/02/17 13:44 Temazepam (Restoril) 15 mg HSPRN PRN ORAL Insomnia 10/07/17 13:45 10/10/17 13:44 JAY JAY JONES Oct 07, 2017 15:55
[2017-10-07 16:00] VITALS: BP 131/83
[2017-10-07] MEDS ORDERED: NS 275ml ONE (17:44)
[2017-10-07] MEDS ORDERED: Tubing IV Secondary IV ONE (17:44)
--- NOTE | 2017-10-07 18:57 | Discharge Summary ---
Discharge Summary Hospital Course Date of Admission Oct 03, 2017 at 11:12 Date of Discharge Oct 07, 2017 at 17:45 Admitting Diagnosis HYPERTENSIVE URGENCY HPI Karla Collins is a 42 year old female who was admitted on Oct 03, 2017 at 11: 12 for Hypertensive Urgency Hospital Course [id number] Discharge Discharge Disposition Patient was discharged to Home (01) Discharge Diagnoses: Torrie Green NP Oct 07, 2017 18:57
[2017-10-07] MEDS ORDERED: Nortriptyline 25mg cap ORAL SCH (21:00)
--- NOTE | 2017-10-08 06:00 | Discharge Summary 2 SIG ---
DATE OF ADMISSION: 10/03/2017 DATE OF DISCHARGE: 10/07/2017 CONSULTANTS: 1. Elbert Good M.D. 2. Kathleen Chavez M.D. 3. Brigido Negro M.D. 4. Ayden العراقي M.D. BRIEF HOSPITAL COURSE: The patient is a 42-year-old female with past medical history significant for hypertension, obesity, and migraine headaches, presented to ED complaining of three days onset of diarrhea and headaches with associated cough, photophobia, neck pain, body aches, and sore throat. Kids had cold symptoms and has recent contact with infectious people. Denied nausea or vomiting. On evaluation at ED, blood pressure was elevated to 178/123 and had low-grade fever 99.9. Heart rate was elevated to 130s. EKG done showed sinus tachycardia with no acute ischemic changes. Troponin was negative. Chest x-ray done was negative. Influenza screen was negative. Fever went up to 101, although still with no leukocytosis. She was placed on droplet isolation and was started on Tamiflu and empirically on IV vancomycin and ceftriaxone, as there was low suspicion for bacterial meningitis. The patient has a viral syndrome, suspect flu despite negative rapid test and chest x-ray was unremarkable. She was followed by a neurologist, who agreed with recommendations for possible lumbar puncture. She also complained of diarrhea and was given Imodium. Stool studies showed normal fecal thomas, negative for C. difficile. A repeat influenza test was done and was still negative. Lumbar puncture done on 10/06/2017 with opening pressure of 21. Specimen was sent to laboratory. She was also screened for West Nile and human immunodeficiency virus, which were negative. Influenza type A and B, IgM results are still pending. CSF culture stain negative and CSF findings not consistent with meningitis. The patient was eventually discharged home to complete Tamiflu for two more days and to resume home medications. FINAL DIAGNOSES: 1. Acute viral syndrome. 2. Headache secondary to influenza, CSF not consistent with meningitis. 3. Fever. 4. Hypertensive urgency. 5. Migraine headaches. 6. Obesity. 7. Iron deficiency anemia. 8. Upper respiratory infection. 9. Noncompliance. DISPOSITION: The patient was discharged home. DISCHARGE MEDICATIONS: Refer to medication list. DISCHARGE INSTRUCTIONS: Complete antibiotic treatment. FOLLOWUP: Follow up with PMD within a week. Katia Avery M.D. I have been assigned to dictate discharge summary on this account and I was not involved in the patient's management. Torrie Green N.P. DR: SERGE JOB#: [id number] CC: MIKE
== END 2017-10-07 17:45 | disposition home or self-care (01) | DRG 113 ==
LOC: EMR 06:38 → EDBEDREQ 10:22 → 2E 11:12 → EDBEDREQ 14:05 → 2E 16:35 → 4E 10-07 05:30
PROC: 009U3ZX Drainage of Spinal Canal, Percutaneous Approach, Diagnostic (ICD-10-PCS; principal; 2017-10-06)
PROC: B01BZZZ Fluoroscopy of Spinal Cord (ICD-10-PCS; 2017-10-06)
DX: J11.1 Influenza due to unidentified influenza virus with other respiratory manifestations (principal); I10 Essential (primary) hypertension; E66.9 Obesity, unspecified; I16.0 Hypertensive urgency; G43.909 Migraine, unspecified, not intractable, without status migrainosus; Z68.39 Body mass index [BMI] 39.0-39.9, adult; J06.9 Acute upper respiratory infection, unspecified; D50.9 Iron deficiency anemia, unspecified; Z91.19 Patient's noncompliance with other medical treatment and regimen; D72.819 Decreased white blood cell count, unspecified; R19.7 Diarrhea, unspecified
CPT/HCPCS: 36415; 70450; 71045; 80048; 80053; 80061; 80202; 80307; 81003; 81025; 82270; 82607; 82746; 82945; 83540; 83550; 83690; 84157; 84443; 84484; 85007; 85025; 85610; 85651; 85730; 86039; 86140; 86171; 86592; 86703; 86710; 86790; 87045; 87070; 87205; 87324; 87536; 89051; 93005; 93306; 94640; 94664; 99285; J2405; J7620; J8499

== ENCOUNTER 2018-02-08 11:13 | Emergency (ER) | payer MEDICAID ==
[~2018-02-08] VITALS: Ht 165.1 cm; Wt 105.2 kg
[~2018-02-08 11:13] MED LIST changes: +LISINOPRIL20 MG ORAL; +NORVASC5 MG ORAL; +TAMIFLU75 MG ORAL
[2018-02-08 11:43] VITALS: BP 161/102
[2018-02-08] MEDS ORDERED: TYLENOL EXTRA500 MG ORAL (12:41)
[2018-02-08] MEDS ORDERED: ALBUTEROL SULF8.5 GM INH (12:41)
[2018-02-08] MEDS ORDERED: PROMETHAZI6.25 MG/1 ORAL (12:41)
[2018-02-08] MEDS ORDERED: PSEUDOEPHEDRINE30 MG PO (12:41)
--- NOTE | 2018-02-08 12:41 | Emergency Room Report ---
History of Present Illness General Chief Complaint: Upper Respiratory Illness Source: Patient Present Illness HPI 42-year-old female patient presents ER complaining of cough for the past 3 days. Reports cough is worse at night. Denies history of asthma, states that she has taken albuterol inhaler for bronchitis-like symptoms in the past, requesting refill of albuterol inhaler. Also complaining of sore throat and congestion during this time. Denies hemoptysis. Denies history of PR. denies history of sick contacts. Denies chest pain, shortness of breath, abdominal pain, fever. Denies dysuria, hematuria. Allergies: Coded Allergies: SHELLFISH DERIVED (Unverified Allergy, Unknown, 11/12/15) Patient History Past Medical History: see triage record Last Menstrual Period: january 18 Now: No Reviewed Nursing Documentation: PMH: Agreed; PSxH: Agreed Nursing Documentation-PMH Past Medical History: No History, Except For Hx Hypertension: Yes Hx Cancer: No Hx Gastrointestinal Problems: Yes Hx Neurological Problems: No Review of Systems All Other Systems: negative except mentioned in HPI Physical Exam Vital Signs Date Time Temp Pulse Resp B/P (MAP) Pulse Ox O2 Delivery O2 Flow Rate FiO2 02/08/18 11:43 98.7 86 19 161/102 99 Room Air 98.8 Sp02 EP Interpretation: reviewed, normal General Appearance: well appearing, no apparent distress, alert, GCS 15, non- toxic Head: normocephalic, atraumatic Eyes: bilateral eye normal inspection, bilateral eye PERRL ENT: hearing grossly normal, normal pharynx, no angioedema, normal voice, TMs + canals normal, uvula midline, moist mucus membranes, nasal congestion Neck: full range of motion Respiratory: lungs clear, normal breath sounds, no rhonchi, no respiratory distress, no accessory muscle use, no wheezing, speaking full sentences Cardiovascular #1: regular rate, rhythm, no edema Musculoskeletal: back normal, digits/nails normal, gait/station normal, normal range of motion, non-tender Neurologic: alert, oriented x3, responsive, motor strength/tone normal, sensory intact Psychiatric: mood/affect normal Skin: no rash Lymphatic: no adenopathy Medical Decision Making PA Attestation Dr. Gamez is my supervising Physician whom patient management has been discussed with. Diagnostic Impression: Primary Impression: Upper respiratory infection ER Course Pt presents to ED c/o cough. DDX considered but are not limited to influenza, viral URI, pneumonia, strep throat, rhinitis, sinusitis, otitis media. Low suspicion for pneumonia, lungs clear to auscultation and patient afebrile, does not need CXR at this time. VITAL SIGNS are WNL, patient is afebrile, Mild elevation in BP, reports hx of HTN, repots took medication today, denies chest pain, SOB, RIVERA. Does not require acute intervention at this time, follow-up with primary care provider. Advised patient on low-sodium diet. ER COURSE: Lungs clear to auscultation, no wheezes, rhonci or rales. No pharyngeal erythema , tonsillar exudates or tonsillar swelling. Likely viral etiology of symptoms related to upper respiratory tract infection. Cough likely causing sore throat symptoms. Symptomatic treatment. Followup with PCP for further treatment and/or referral as needed. ER precautions given. Provided inhaler to patient. Instructed patient to followup with PCP to discuss further treatment and management. DISCHARGE: -Rx given for Sudafed -Rx given for Tylenol/Acetaminophen -Rx given for Promethazine syrup for cough sx. -Rx given for Albuterol inhaler At this time pt is stable for d/c to home. Patient is resting comfortably, in no acute distress, nontoxic appearing. Patient to take medications as instructed Will provide with patient care instructions and any necessary prescriptions. Care plan and follow-up instructions provided. Patient instructed to follow-up with primary care provider in 3 - 5 days. Patient questions asked and answered. Patient reports understanding and agreement to treatment plan. ER precautions given. Patient instructed to return to ER immediately for any new or worsening of symptoms including but not limited to increasing SOB, persistent fever, intractable vomiting. - Please note that this Emergency Department Report was dictated using [employer] worker technology software, occasionally this can lead to erroneous entry secondary to interpretation by the dictation equipment. Last Vital Signs Date Time Temp Pulse Resp B/P (MAP) Pulse Ox O2 Delivery O2 Flow Rate FiO2 02/08/18 11:43 98.7 86 19 161/102 99 Room Air 98.8 Disposition: HOME, SELF-CARE Condition: Stable Scripts Albuterol Sulfate* (ALBUTEROL SULFATE MDI*) 8.5 Gm Hfa.aer.ad 2 PUFF INH Q6H, #1 INH 0 Refills Prov: Bhavin Thompson 02/08/18 Promethazine Hcl (PROMETHAZINE HCL*) 6.25 Mg/5 Ml Syrup 5 ML ORAL Q8H, #120 ML 0 Refills Prov: Bhavin Thompson 02/08/18 Pseudoephedrine Hcl* (SUDAFED*) 30 Mg Tablet 30 MG PO Q6H, #24 TAB Prov: Bhavin Thompson 02/08/18 Acetaminophen* (TYLENOL EXTRA STRENGTH*) 500 Mg Tablet 500 MG ORAL Q8H PRN for Prn Headache/Temp > 101, #30 TAB 0 Refills Prov: Bhavin Thompson 02/08/18 Referrals: NON PHYSICIAN (PCP) Patient Instructions: Upper Respiratory Infection, Adult Additional Instructions: Followup with primary care provider in 3 -5 days. Discuss further treatment and referral at that time. Discuss HTN medication. Low sodium diet. Diet and exercise, for blood pressure control. Take medications as directed. Patient questions asked and answered. ER precautions given, patient instructed to return to ER immediately for any new or worsening of symptoms. Bhavin Thompson Feb 08, 2018 12:41
[2018-02-08 12:52] VITALS: BP 166/96
== END 2018-02-08 12:52 | disposition home or self-care (01) ==
LOC: EMR 12:26
DX: J06.9 Acute upper respiratory infection, unspecified (principal); I10 Essential (primary) hypertension; Z91.013 Allergy to seafood
CPT/HCPCS: 99284

== ENCOUNTER 2018-04-18 19:54 | Emergency (ER) | payer MEDICAID ==
[~2018-04-18] VITALS: Ht 165.1 cm; Wt 102.1 kg
[~2018-04-18 19:54] MED LIST changes: +ALBUTEROL SULF8.5 GM INH; +PROMETHAZI6.25 MG/1 ORAL; +PSEUDOEPHEDRINE30 MG PO; +TYLENOL EXTRA500 MG ORAL
[2018-04-18 20:10] VITALS: BP 175/80
[2018-04-18] MEDS ORDERED: ALPRAZOLAM0.25 MG ORAL (20:32)
[2018-04-18 20:43] VITALS: BP 134/84
[2018-04-18 20:45] VITALS: BP 134/84
--- NOTE | 2018-04-18 21:00 | Emergency Room Report ---
History of Present Illness General Chief Complaint: Palpitations Source: Patient Present Illness HPI 42-year-old female presents ED for evaluation. Patient states her heart has been racing for the last 4 days. Was seen by PMD. Was told that it may be anxiety and was prescribed hydroxyzine. States that it is not helping her symptoms. Denies any chest pain or shortness of breath. Notes history of hypertension states she is compliant with her medications. States that she does feel anxious because of multiple stressors. But does not take medication currently. Denies drug use. No other aggravating relieving factors. Denies any other associated symptoms Allergies: Coded Allergies: SHELLFISH DERIVED (Unverified Allergy, Unknown, 11/12/15) Patient History Past Medical History: HTN Past Surgical History: none Pertinent Family History: none Social History: Denies: smoking, alcohol use, drug use Now: No Immunizations: UTD Reviewed Nursing Documentation: PMH: Agreed; PSxH: Agreed Nursing Documentation-PMH Hx Hypertension: Yes Hx Cancer: No Hx Gastrointestinal Problems: Yes Hx Neurological Problems: No Review of Systems All Other Systems: negative except mentioned in HPI Physical Exam Vital Signs Date Time Temp Pulse Resp B/P (MAP) Pulse Ox O2 Delivery O2 Flow Rate FiO2 04/18/ 20:00 97.8 92 16 175/80 98 Room Air 97.9 Sp02 EP Interpretation: reviewed, normal General Appearance: no apparent distress, alert, GCS 15, non-toxic Head: normocephalic, atraumatic Eyes: bilateral eye normal inspection, bilateral eye PERRL ENT: hearing grossly normal, normal pharynx, no angioedema, normal voice Neck: full range of motion, supple/symm/no masses Respiratory: chest non-tender, lungs clear, normal breath sounds, speaking full sentences Cardiovascular #1: regular rate, rhythm, no edema Cardiovascular #2: 2+ carotid (R), 2+ carotid (L), 2+ radial (R), 2+ radial (L) , 2+ dorsalis pedis (R), 2+ dorsalis pedis (L) Gastrointestinal: normal bowel sounds, non tender, soft, non-distended, no guarding, no rebound Rectal: deferred Genitourinary: normal inspection, no CVA tenderness Musculoskeletal: back normal, gait/station normal, normal range of motion, non- tender Neurologic: alert, oriented x3, responsive, motor strength/tone normal, sensory intact, speech normal Psychiatric: judgement/insight normal, memory normal, no suicidal/homicidal ideation, anxious Reflexes: 3+ bicep (R), 3+ bicep (L), 3+ tricep (R), 3+ tricep (L), 3+ knee (R) , 3+ knee (L) Skin: normal color, no rash, warm/dry, well hydrated Lymphatic: no adenopathy Medical Decision Making Diagnostic Impression: Primary Impression: Anxiety Additional Impression: Palpitations ER Course Hospital Course 42-year-old female presents ED complaining of palpitations, feeling anxious Differential diagnoses include: OH/unstable angina, CVA/TIA, dehydration, anxiety Clinical course Patient placed on stretcher. on lunchroom monitor. After initial history and physical I ordered EKG EKG - NSR, episodic arrythmia with slightly prolonged QT Patient observed on lunchroom monitor. Stable vitals. No signs of a tachyarrhythmia. Discussed findings with patient. Patient safe for discharge at this time. Recommend follow-up with PMD/accounts receivable bookkeeper for potential Holter monitor. Otherwise we will prescribe low-dose Xanax for anxiety as the hydroxyzine is not helping. I. I feel this is a highly complex case requiring extensive working including EKG/Rhythm strip, Xray/CT/US, Blood/urine lab work, repeat exams while in ED, and administration of strong opiates/narcotics for pain control, admission to hospital or close patient follow up. Diagnosis - anxiety, palpitations Stable and discharged to home with Rx Xanax. Followup with PMD. Return to ED if symptoms recur or worse EKG Diagnostic Results Rate: normal Rhythm: NSR ST Segments: no acute changes ASA given to the pt in ED: No Rhythm Strip Diag. Results EP Interpretation: yes Rhythm: NSR, no PVC's, no ectopy Last Vital Signs Date Time Temp Pulse Resp B/P (MAP) Pulse Ox O2 Delivery O2 Flow Rate FiO2 04/18/18 20:45 97.9 79 18 134/84 100 Room Air 97.9 Status: improved Disposition: HOME, SELF-CARE Condition: Stable Scripts Alprazolam* (XANAX*) 0.25 Mg Tablet 0.25 MG ORAL TID PRN for For Anxiety, #20 TAB Prov: Lamin Langford MD 04/18/18 Patient Instructions: Palpitations, [id number] Additional Instructions: followup with PMD/cardiology. recommend holter monitor Lamin Langford MD Apr 18, 2018 21:00
--- NOTE | 2018-04-24 00:44 | Cardiology Report ---
APPROVED REPORT EKG Measurement Heart [id number] Normal sinus rhythm with sinus arrhythmia Prolonged QT Abnormal ECG
== END 2018-04-18 20:40 | disposition home or self-care (01) ==
LOC: EMR 20:11
DX: R00.2 Palpitations (principal); F41.9 Anxiety disorder, unspecified; Z91.013 Allergy to seafood; I10 Essential (primary) hypertension
CPT/HCPCS: 93005; 99283

== ENCOUNTER 2018-05-04 07:26 | Emergency (ER) | payer MEDICAID ==
[~2018-05-04] VITALS: Ht 165.1 cm; Wt 101.6 kg
[2018-05-04 07:31] VITALS: BP 171/106
--- NOTE | 2018-05-04 07:59 | Emergency Room Report ---
History of Present Illness General Chief Complaint: Palpitations Source: Patient Present Illness HPI Patient presents with complaints of palpitation feeling However she also complains of chest heaviness Sensation of falling Denies association with fainting or lightheadedness She feels that the symptoms are worsened at nighttime Denies any vomiting or diarrhea denies any fevers or chills Denies any focal weakness Patient reports that she is pending a cardiology follow-up Allergies: Coded Allergies: SHELLFISH DERIVED (Unverified Allergy, Unknown, 11/12/15) Patient History Past Medical History: see triage record Pertinent Family History: none Last Menstrual Period: 8-8 Now: No Reviewed Nursing Documentation: PMH: Agreed; PSxH: Agreed Nursing Documentation-PMH Past Medical History: No History, Except For Hx Hypertension: Yes Hx Cancer: No Hx Gastrointestinal Problems: Yes Hx Neurological Problems: No Review of Systems All Other Systems: negative except mentioned in HPI Physical Exam Vital Signs Date Time Temp Pulse Resp B/P (MAP) Pulse Ox O2 Delivery O2 Flow Rate FiO2 05/04/18 07:31 98.4 81 20 171/106 98 Room Air 98.4 Sp02 EP Interpretation: reviewed, normal General Appearance: well appearing, no apparent distress Head: normocephalic, atraumatic Eyes: bilateral eye PERRL, bilateral eye EOMI ENT: hearing grossly normal, normal pharynx, TMs + canals normal, uvula midline Neck: full range of motion, supple, no meningismus, no bony tend Respiratory: lungs clear, normal breath sounds, no rhonchi, no respiratory distress, no retraction, no accessory muscle use Cardiovascular #1: normal peripheral pulses, regular rate, rhythm, no edema, no gallop, no JVD, no murmur Gastrointestinal: normal bowel sounds, non tender, soft, no mass, no organomegaly, non-distended, no guarding, no hernia, no pulsatile mass, no rebound Genitourinary: no CVA tenderness Musculoskeletal: normal inspection Neurologic: oriented x3, responsive, clay digger III-XII nml as tested, motor strength/ tone normal, sensory intact Psychiatric: mood/affect normal Skin: normal color, no rash, warm/dry, palpation normal Lymphatic: normal inspection, no adenopathy Medical Decision Making Diagnostic Impression: Primary Impression: Palpitations ER Course Patient is a fairly complex patient with multiple differential to consideration including but not limited to cardiac cardiopulmonary and vascular emergencies Given the patient's repeat presentation extensive blood work is initiated All within normal limits Patient continues to show marijuana on her system I did discuss this with her could potentially be exacerbating some of the palpitation sensation Otherwise patient's x-ray and EKG are appropriate QT corrected is very minimally prolonged but does not explain the chest discomfort patient does not have any signs and symptoms of pulmonary embolism and is otherwise stable for close outpatient follow-up Labs Test 05/04/18 07:52 White Blood Count 5.1 K/UL (4.8-10.8) Red Blood Count 4.41 M/UL (4.20-5.40) Hemoglobin 12.2 G/DL (12.0-16.0) Hematocrit 37.8 % (37.0-47.0) Mean Corpuscular Volume 86 FL (80-99) Mean Corpuscular Hemoglobin 27.6 PG (27.0-31.0) Mean Corpuscular Hemoglobin Concent 32.2 G/DL (32.0-36.0) Red Cell Distribution Width 13.6 % (11.6-14.8) Platelet Count 276 K/UL (150-450) Mean Platelet Volume 7.2 FL (6.5-10.1) Neutrophils (%) (Auto) 50.3 % (45.0-75.0) Lymphocytes (%) (Auto) 37.3 % (20.0-45.0) Monocytes (%) (Auto) 7.6 % (1.0-10.0) Eosinophils (%) (Auto) 3.5 % (0.0-3.0) Basophils (%) (Auto) 1.3 % (0.0-2.0) Urine HCG, Qualitative Negative (NEGATIVE) Sodium Level 137 MMOL/L (136-145) Potassium Level 3.6 MMOL/L (3.5-5.1) Chloride Level 106 MMOL/L (98-107) Carbon Dioxide Level 17 MMOL/L (21-32) Anion Gap 14 mmol/L (5-15) Blood Urea Nitrogen 6 mg/dL (7-18) Creatinine 0.8 MG/DL (0.55-1.30) Estimat Glomerular Filtration Rate > 60 mL/min (>60) Glucose Level 99 MG/DL (74-106) Calcium Level 9.1 MG/DL (8.5-10.1) Troponin I 0.000 ng/mL (0.000-0.056) Pro-B-Type Natriuretic Peptide 208 pg/mL (0-125) Thyroid Stimulating Hormone (TSH) 3.631 uiU/mL (0.358-3.740) Free Thyroxine 1.16 NG/DL (0.76-1.46) Urine Opiates Screen Negative (NEGATIVE) Urine Barbiturates Screen Negative (NEGATIVE) Phencyclidine (PCP) Screen Negative (NEGATIVE) Urine Amphetamines Screen Negative (NEGATIVE) Urine Benzodiazepines Screen Positive (NEGATIVE) Urine Cocaine Screen Negative (NEGATIVE) Urine Marijuana (THC) Screen Positive (NEGATIVE) EKG Diagnostic Results Rate: normal Rhythm: NSR ST Segments: other - Mildly prolonged QT corrected Rhythm Strip Diag. Results EP Interpretation: yes Rate: 77 Rhythm: NSR, no PVC's, no ectopy Chest X-Ray Diagnostic Results Chest X-Ray Diagnostic Results : Chest X-Ray Ordered: Yes # of Views/Limited/Complete: 1 View Indication: Chest Pain EP Interpretation: Yes Interpretation: no consolidation, no effusion, no pneumothorax Impression: No acute disease Electronically Signed by: Ayde Jallho DO Last Vital Signs Date Time Temp Pulse Resp B/P (MAP) Pulse Ox O2 Delivery O2 Flow Rate FiO2 05/04/18 07:31 98.4 81 20 171/106 98 Room Air 98.4 Status: improved Disposition: HOME, SELF-CARE Condition: Improved Referrals: NOT CHOSEN IPA/MD,REFERRING (PCP) Additional Instructions: Patient is provided with the discharge instructions notified to follow up with primary doctor in the next 2-3 days otherwise return to the er with any worsening symptoms. Please note that this report is being documented using [employer] technology. This can lead to erroneous entry secondary to incorrect interpretation by the dictating instrument. Ayde Jalloh DO May 04, 2018 07:59
[2018-05-04 08:23] LABS: BASOPHILS % (AUTO) 1.3 % (0.0-2.0); EOSINOPHILS % (AUTO) 3.5 % (0.0-3.0); HEMATOCRIT 37.8 % (37.0-47.0); HEMOGLOBIN 12.2 G/DL (12.0-16.0); LYMPHOCYTES % (AUTO) 37.3 % (20.0-45.0); MEAN CORPUSCULAR VOLUME 86 FL (80-99); MONOCYTES % (AUTO) 7.6 % (1.0-10.0); NEUTROPHILS % (AUTO) 50.3 % (45.0-75.0); PLATELET COUNT 276 K/UL (150-450); RED BLOOD COUNT 4.41 M/UL (4.20-5.40); RED CELL DISTRIBUTION WIDTH 13.6 % (11.6-14.8); WHITE BLOOD COUNT 5.1 K/UL (4.8-10.8)
[2018-05-04 08:49] LABS: ANION GAP 14 mmol/L (5-15); BLOOD UREA NITROGEN 6 mg/dL (7-18); CALCIUM 9.1 MG/DL (8.5-10.1); CARBON DIOXIDE 17 MMOL/L (21-32); CHLORIDE 106 MMOL/L (98-107); CREATININE 0.8 MG/DL (0.55-1.30); POTASSIUM 3.6 MMOL/L (3.5-5.1); SODIUM 137 MMOL/L (136-145)
[2018-05-04 10:57] VITALS: BP 148/85
--- NOTE | 2018-05-05 09:57 | Diagnostic Imaging Report ---
Indication: Chest pain Technique: One view of the chest Comparison: 10/06/2017 Findings: Lungs and pleural spaces are clear. Heart size is normal . There is no significant interim change Impression: No acute process This agrees with the preliminary interpretation provided overnight by [facility] service.
--- NOTE | 2018-05-05 17:26 | Cardiology Report ---
APPROVED REPORT EKG Measurement Heart [id number] Normal sinus rhythm Prolonged QT Abnormal ECG
== END 2018-05-04 10:59 | disposition home or self-care (01) ==
LOC: EMR 07:50
DX: R00.2 Palpitations (principal); I10 Essential (primary) hypertension
CPT/HCPCS: 36415; 71045; 80048; 80307; 81025; 83880; 84439; 84443; 84484; 85025; 93005; 99284

== ENCOUNTER 2018-08-17 11:48 | Emergency (ER) | payer MEDICAID ==
[~2018-08-17] VITALS: Ht 165.1 cm; Wt 99.3 kg
[2018-08-17] MEDS ORDERED: Ketorolac 30mg Inj IM ONE (12:15)
--- NOTE | 2018-08-17 12:24 | Emergency Room Report ---
History of Present Illness General Chief Complaint: Upper Extremity Injury Source: Patient Present Illness HPI 43-year-old female patient presents the ER complaining of right hand and wrist pain. Reports pain and swelling for the past 2 weeks. States that she was attempting to catch someone who was falling when she banged her wrist against a door stopper on the ground. Patient reports has been taking Tylenol and ibuprofen, states did not take any medication today. Reports she is right-hand dominant. Reports decreased range of motion secondary to swelling. Denies loss of sensation. Denies diabetes or . Allergies: Coded Allergies: SHELLFISH DERIVED (Unverified Allergy, Unknown, 11/12/15) Patient History Past Medical History: see triage record Last Menstrual Period: 12-15 Now: No Reviewed Nursing Documentation: PMH: Agreed; PSxH: Agreed Nursing Documentation-PM Past Medical History: No History, Except For Hx Hypertension: Yes Hx Cancer: No Hx Gastrointestinal Problems: Yes Hx Neurological Problems: No Review of Systems All Other Systems: negative except mentioned in HPI Physical Exam Vital Signs Date Time Temp Pulse Resp B/P (MAP) Pulse Ox O2 Delivery O2 Flow Rate FiO2 08/17/18 11:53 98.8 98 18 127/89 Room Air Sp02 EP Interpretation: reviewed, normal General Appearance: well appearing, no apparent distress, alert, GCS 15, non- toxic Head: normocephalic, atraumatic Eyes: bilateral eye normal inspection, bilateral eye PERRL ENT: hearing grossly normal, normal pharynx, no angioedema, normal voice, uvula midline, moist mucus membranes Neck: full range of motion Respiratory: lungs clear, normal breath sounds, no rhonchi, no respiratory distress, no accessory muscle use, no wheezing, speaking full sentences Cardiovascular #1: regular rate, rhythm, no edema Cardiovascular #2: 2+ radial (R), 2+ radial (L) Musculoskeletal: back normal, digits/nails normal, gait/station normal, decreased range of motion - secondary to pain and swelling, swelling - Dorsum of right hand and wrist, other - NVI, cap refill less than 2 seconds, sensation intact light touch, no deformity, no warmth touch, tender - Snuffbox tenderness , tender over dorsum of right thumb and hand Neurologic: alert, oriented x3, responsive, motor strength/tone normal, sensory intact Psychiatric: mood/affect normal Skin: no rash Medical Decision Making PA Attestation Dr. Ortega is my supervising Physician whom patient management has been discussed with. Diagnostic Impression: Primary Impression: Wrist sprain Additional Impression: Hand swelling ER Course Pt. presents to the ED c/o right hand and wrist pain. Ddx considered but are not limited to fracture, sprain, strain, contusion, dislocation. No erythema, no warmth to touch, no fever, nontoxic appearing, low suspicion for septic joint. Soft compartments, no pulselessness, no pallor, no paresthesias, low suspicion for compartment syndrome at this time. Vital signs: are WNL, pt. is afebrile Ordered X-ray and pain medication. ER COURSE Provided with pain medication. An X-ray of the right hand shows no acute fracture per the preliminary reading. An X-ray of the right wrist shows no acute fracture per the preliminary reading. Likely sprain vs. contusion causing pain symptoms. Due to snuffbox tenderness on physical exam, will apply a thumb spica splint in the ER, patient was applied to the right wrist and was checked afterwards by me showing good alignment and support with distal neurovascular functioning intact. Advised patient on concern for scaphoid fracture, advised to follow-up with orthopedic urgent care for further evaluation and treatment. Patient instructed on RICE method: rest, ice, compression, elevation. Patient instructed on rest, ice and heat. Patient instructed to be NWB Contact information for orthopedic urgent care provided, follow-up with urgent care if unable to followup with primary care provider and get referral to technology integration specialist. Followup with primary care provider. Discuss referral to ortho/pain management/ PT as needed. Discuss further imaging with MRI/CT as needed. Advised patient to monitor for signs and symptoms consistent with compartment syndrome, low suspicion at this time. ER precautions given. DISCHARGE: At this time pt. is stable for d/c to home. Patient is resting comfortably, in no acute distress, nontoxic appearing, talking without difficulty. Will provide printed patient care instructions, and any necessary prescriptions. Patient instructed to follow with primary care provider in 3 - 5 days and to request further follow-up as needed. Care plan and follow up instructions have been discussed with the patient prior to discharge. Take medications as directed. Patient questions asked and answered. Patient reports understanding and agreement to treatment plan. ER precautions given, patient instructed to return to ER immediately for any new or worsening of symptoms. - Please note that this Emergency Department Report was dictated using The [employer] driller technology software, occasionally this can lead to erroneous entry secondary to interpretation by the dictation equipment. Other X-Ray Diagnostic Results Other X-Ray Diagnostic Results #1: X-Ray ordered: Right hand # of Views/Limited Vs Complete: 3 View Indication: Pain EP Interpretation: Yes PA Xray: Interpretation reviewed, by supervising MD, and agrees with findings. Interpretation: no dislocation, no soft tissue swelling, no fractures Impression: No acute disease RETA Scribe Frank Thompson PA-C Other X-Ray Diagnostic Results #2: X-Ray ordered: Right wrist # of Views/Limited Vs Complete: 3 View Indication: Pain EP Interpretation: Yes PA Xray: Interpretation reviewed, by supervising MD, and agrees with findings. Interpretation: no dislocation, no soft tissue swelling, no fractures Impression: No acute disease RETA Scribe Frank Thompson PA-C Last Vital Signs Date Time Temp Pulse Resp B/P (MAP) Pulse Ox O2 Delivery O2 Flow Rate FiO2 08/17/18 11:53 98.8 98 18 127/89 Room Air Status: improved Disposition: HOME, SELF-CARE Condition: Stable Scripts Ibuprofen* (MOTRIN*) 600 Mg Tablet 600 MG ORAL Q8H PRN for For Pain, #30 TAB 0 Refills Prov: Bhavin Thompson 08/17/18 Patient Instructions: Hand Contusion, [id number], Wrist Pain, [id number] Additional Instructions: Patient instructed to follow up with primary care provider and discuss further referral to orthopedics/physical therapy/pain management as needed. If unable to followup with PCP, followup with orthopedic urgent care in 5-7 days , call to schedule appointment. Patient instructed on RICE method: rest, ice, compression, elevation. Patient instructed to NWB Take medications as directed. Patient questions asked and answered. ER precautions given, patient instructed to return to ER immediately for any new or worsening of symptoms. [facility] [address] [facility] [address] [facility], [id number] [email or web address] Bhavin Thompson Aug 17, 2018 12:24
[2018-08-17 12:30] VITALS: BP 127/89
[2018-08-17] MEDS ORDERED: IBUPROFEN600 MG ORAL (14:05)
[2018-08-17 14:11] VITALS: BP 134/78
--- NOTE | 2018-08-17 14:48 | Diagnostic Imaging Report ---
Indication: Right hand pain Technique: 3 views right hand Comparison: none Findings: No acute fractures. No dislocations. The joint spaces are preserved. There are mild degenerative changes of the second third and fourth distal interphalangeal joints. Impression: Degenerative changes, as described. No acute bony trauma
--- NOTE | 2018-08-17 14:49 | Diagnostic Imaging Report ---
Indication: Pain Technique: 3 views right hand Comparison: none Findings: No acute fractures. No dislocations. The joint spaces are preserved Impression: Negative
== END 2018-08-17 14:11 | disposition home or self-care (01) ==
LOC: EMR 13:10
DX: S63.501A Unspecified sprain of right wrist, initial encounter (principal); W22.8XXA Striking against or struck by other objects, initial encounter; Y92.89 Other specified places as the place of occurrence of the external cause; I10 Essential (primary) hypertension; Z91.013 Allergy to seafood
CPT/HCPCS: 29130; 73110; 73130; 96372; 99283; J1885

== ENCOUNTER 2019-08-10 07:32 | Emergency (ER) | payer MEDICAID ==
[~2019-08-10] VITALS: Ht 165.1 cm; Wt 101.2 kg
--- NOTE | 2019-08-10 07:45 | NUR ---
ED Nurse Note: Pt walked into ED from home w/o of cough and congestion since friday. Pt states she also had fever on Friday. Current temp is 98.9F oral. Pt lungs clear to auscultation. No acute distress. Will cont to monitor. Urine collected.
[2019-08-10 07:57] VITALS: BP 117/80
[2019-08-10] MEDS ORDERED: TUSSIN CF COUG118 ML PO (09:32)
[2019-08-10] MEDS ORDERED: TAMIFLU75 MG ORAL (09:33)
[2019-08-10 09:35] VITALS: BP 117/64
--- NOTE | 2019-08-10 09:35 | NUR ---
ER DISCHARGE NOTE: Patient is cleared to be discharged per ERMD, pt is aox4, on room air, with stable vital signs. pt was given dc and prescription instructions, pt was able to verbalize understanding, pt id band removed. pt is able to ambulate with steady gait. pt took all belongings. 2 prescriptions provided to pt.
--- NOTE | 2019-08-10 13:02 | Emergency Room Report ---
History of Present Illness General Chief Complaint: Flu Like Symptoms Source: Patient Present Illness HPI Patient presents with complaints of nasal congestion cough body aches symptoms ongoing for the past 2 weeks Denies any vomiting or diarrhea denies any recent travel Patient is here with a family member who is also having similar complaints Patient denies any rash denies any photophobia Allergies: Coded Allergies: SHELLFISH DERIVED (Unverified Allergy, Unknown, 11/12/15) Patient History Past Medical History: see triage record Last Menstrual Period: 07/30/19 Now: No Reviewed Nursing Documentation: PMH: Agreed; PSxH: Agreed Nursing Documentation-PMH Hx Hypertension: Yes Hx Cancer: No Hx Gastrointestinal Problems: Yes Hx Neurological Problems: No Review of Systems All Other Systems: negative except mentioned in HPI Physical Exam Vital Signs Date Time Temp Pulse Resp B/P (MAP) Pulse Ox O2 Delivery O2 Flow Rate FiO2 08/10/19 07:38 98.8 107 20 116/83 (94) 96 Room Air 08/10/19 07:57 99 Sp02 EP Interpretation: reviewed, normal General Appearance: well appearing, no apparent distress Head: normocephalic, atraumatic Eyes: bilateral eye PERRL, bilateral eye EOMI ENT: hearing grossly normal, normal pharynx, TMs + canals normal, uvula midline , other - Clear rhinorrhea Neck: full range of motion, supple, no meningismus, no bony tend Respiratory: lungs clear, normal breath sounds, no rhonchi, no respiratory distress, no retraction, no accessory muscle use Cardiovascular #1: normal peripheral pulses, regular rate, rhythm, no edema, no gallop, no JVD, no murmur Gastrointestinal: normal bowel sounds, non tender, soft, no mass, no organomegaly, non-distended, no guarding, no hernia, no pulsatile mass, no rebound Genitourinary: no CVA tenderness Musculoskeletal: normal inspection Neurologic: motor strength/tone normal, electronic equipment repairer III-XII nml as tested, oriented x3 , sensory intact, responsive Psychiatric: mood/affect normal Skin: no rash Lymphatic: normal inspection, no adenopathy Medical Decision Making Diagnostic Impression: Primary Impression: Influenza-like symptoms ER Course Multiple differentials are in consideration including but not limited to pneumonia, flu, bronchitis Patient's lung sounds are clear saturations are appropriate and does not appear to be in respiratory distress Patient does not meet criteria for initial imaging studies And is treated symptomatically with likely flu symptoms Patient will follow closely with primary physician Last Vital Signs Date Time Temp Pulse Resp B/P (MAP) Pulse Ox O2 Delivery O2 Flow Rate FiO2 08/10/19 09:35 98.7 68 18 117/64 99 Room Air 08/10/19 07:57 99 Status: improved Disposition: HOME, SELF-CARE Condition: Stable Scripts Oseltamivir Phosphate (Tamiflu) 75 Mg Capsule 75 MG ORAL TWICE A DAY for 5 Days, CAP Prov: Ayde Jalloh DO 08/10/19 Guaifenesin/D-Methorphan Hb/Pe (TUSSIN CF COUGH & COLD SYRUP) 118 Ml Liquid 10 ML PO QHS for 7 Days, ML Prov: Ayde Jalloh DO 08/10/19 Referrals: NON PHYSICIAN (PCP) [facility] Julio Ortega [facility]. [facility] Patient Instructions: Influenza, Adult, [id number] Additional Instructions: Patient is provided with the discharge instructions notified to follow up with primary doctor in the next 2-3 days otherwise return to the er with any worsening symptoms. Please note that this report is being documented using tarpipe technology. This can lead to erroneous entry secondary to incorrect interpretation by the dictating instrument. Ayde Jalloh DO Aug 10, 2019 13:02
== END 2019-08-10 09:35 | disposition home or self-care (01) ==
LOC: EMR 08:10
DX: J11.1 Influenza due to unidentified influenza virus with other respiratory manifestations (principal); I10 Essential (primary) hypertension; Z91.013 Allergy to seafood
CPT/HCPCS: 99282

== ENCOUNTER 2020-02-07 10:53 | Emergency (ER) | payer MEDICAID ==
[~2020-02-07] VITALS: Ht 165.1 cm; Wt 103.0 kg
[~2020-02-07 10:53] MED LIST changes: +TUSSIN CF COUG118 ML PO
[2020-02-07 11:05] VITALS: BP 128/85
--- NOTE | 2020-02-07 11:26 | Emergency Room Report ---
History of Present Illness General Chief Complaint: Dizziness Source: Patient Present Illness HPI Disclaimer: Please note that this report is being documented using DRAGON technology. This can lead to erroneous entry secondary to incorrect interpretation by the dictating instrument. HPI: 44-year-old female history of hypertension and migraines presents for evaluation of headaches, dizziness and hearing loss. Patient states over the past week she has had symptoms consistent with a migraine headache including photosensitivity, frontal throbbing headache, lightheadedness, vertiginous symptoms, nausea and vomiting. Denies fever, chills, cough, chest pain, palpitations, syncope. She reports intermittent tinnitus and transient hearing loss but quickly returns. Also reports pain behind the ears bilaterally and swelling. Denies recent illness or exposure to sick contacts. Saw her neurologist 4 days ago and underwent EEG but results are not yet returned. She was started on Topamax for treatment of migraines. 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 EOMI. PERRLA. No nystagmus. Auditory acuity grossly intact. Tympanic members are pearly glover, nonbulging, no effusion bilaterally. Tenderness over the mastoids bilaterally and mild overlying edema without significant erythema. Submandibular lymph nodes mildly enlarged bilaterally but nontender. Cardiovascular: RRR. S1 and S2 normal. No murmur appreciated Resp: Normal work of breathing. Obese. No cough, wheezing or crackles appreciated Abdomen: Abdomen is soft, nondistended. Nontender Skin: Intact. No abrasions, laceration or rash over the exposed skin MSK: Normal tone and bulk. Moving all extremities. No obvious deformity. Neuro: Awake and alert. Mentating appropriately. No nystagmus. No ataxia. Ambulating with steady gait. Medical Decision Making Diagnostic Impression: Primary Impression: Migraine headache ER Course 44-year-old female presents for evaluation of 1 week headaches, tinnitus, vertiginous symptoms and pain over the mastoids. Differential includes was not limited to generalized headache, migraine, complex migraine, labyrinthitis, Mnire's disease, intracranial mass, mastoiditis to name a few. Patient is overall nontoxic-appearing arrives with stable vital signs. Will treat his complex migraine but also obtain labs and a CT scan to evaluate for intracranial lesions or possible mastoiditis 1400: CT returned within normal limits. Labs largely unremarkable aside from mild hypokalemia which was repleted with IV and oral potassium in the ED. Patient reports feeling improved after receiving a migraine cocktail. Stable for outpatient follow-up at this point. Will discharge on potassium supplements and have outpatient retest by her PMD. Encouraged her to contact her neurologist tomorrow morning to discuss today's emergency department visit and for reevaluation. Discussed reasons to return to the emergency department. She understands and agrees with this treatment plan. Laboratory Tests Test 02/07/20 11:10 02/07/20 11:26 Urine HCG, Qualitative Negative (NEGATIVE) White Blood Count 6.0 K/UL (4.8-10.8) Red Blood Count 4.25 M/UL (4.20-5.40) Hemoglobin 12.6 G/DL (12.0-16.0) Hematocrit 36.2 % (37.0-47.0) L Mean Corpuscular Volume 85 FL (80-99) Mean Corpuscular Hemoglobin 29.6 PG (27.0-31.0) Mean Corpuscular Hemoglobin Concent 34.7 G/DL (32.0-36.0) Red Cell Distribution Width 11.7 % (11.6-14.8) Platelet Count 377 K/UL (150-450) Mean Platelet Volume 5.5 FL (6.5-10.1) L Neutrophils (%) (Auto) 57.3 % (45.0-75.0) Lymphocytes (%) (Auto) 30.8 % (20.0-45.0) Monocytes (%) (Auto) 8.8 % (1.0-10.0) Eosinophils (%) (Auto) 2.1 % (0.0-3.0) Basophils (%) (Auto) 1.0 % (0.0-2.0) Sodium Level 137 MMOL/L (136-145) Potassium Level 2.8 MMOL/L (3.5-5.1) L Chloride Level 99 MMOL/L (98-107) Carbon Dioxide Level 24 MMOL/L (21-32) Anion Gap 14 mmol/L (5-15) Blood Urea Nitrogen 20 mg/dL (7-18) H Creatinine 1.3 MG/DL (0.55-1.30) Estimated Glomerular Filtration Rate 54.4 mL/min (>60) Glucose Level 116 MG/DL (74-106) H Calcium Level 9.1 MG/DL (8.5-10.1) CT/MRI/US Diagnostic Results CT/MRI/US Diagnostic Results : Impression Comparison: Noncontrast brain CT dated 10/03/2017 Findings: Precontrast images demonstrate no acute intracranial hemorrhage or edema. Glover-white differentiation is normal. No mass effect nor midline shift. Normal size ventricles and extra-axial CSF spaces. Small patent cavum septum pellucidum is again incidentally noted. On the postcontrast images, no unusual contrast enhancement is evident. Visualized orbits and sinuses are unremarkable. The mastoids are clear. The calvarium is intact. There appears to be an exophytic dermal lesion protruding off of the right posterior supraorbital scalp. This contains some calcifications. Impression: Negative for acute intracranial bleed, mass effect, or contrast enhancing lesion Exophytic cutaneous lesion seen in the right posterior supraorbital region. Presumably clinically evident. Dictated By: Dante Avendano MD Electronically Signed By: Dante Avendano MD Signed Date/Time 02/07/20 1312 CC: Jarek Chowdhury MD Last Vital Signs Date Time Temp Pulse Resp B/P (MAP) Pulse Ox O2 Delivery O2 Flow Rate FiO2 02/07/20 11:03 98.8 77 20 128/85 (99) 97 Room Air Disposition: HOME, SELF-CARE Condition: Stable Scripts Potassium Chloride* (K-DUR*) 20 Meq Tab.er.prt 20 MEQ ORAL DAILY for 5 Days, #5 TAB 0 Refills Prov: Jarek Chowdhury MD 02/07/20 Meclizine Hcl* (MECLIZINE*) 25 Mg Tablet 25 MG ORAL THREE TIMES A DAY for 5 Days, #15 TAB Prov: Jarek Chowdhury MD 02/07/20 Ibuprofen* (MOTRIN*) 600 Mg Tablet 600 MG ORAL Q6H PRN for For Pain, #30 TAB 0 Refills Prov: Jarek Chowdhury MD 02/07/20 Acetaminophen* (TYLENOL EXTRA STRENGTH*) 500 Mg Tablet 500 MG ORAL Q8H PRN for Prn Headache/Temp > 101, #30 TAB 0 Refills Prov: Jarek Chowdhury MD 02/07/20 Jarek Chowdhury MD Feb 07, 2020 11:26
[2020-02-07] MEDS ORDERED: Omnipaque-300 100ml vial INJ ONE (11:30)
[2020-02-07] MEDS ORDERED: DiphenhydrAMINE 50mg/ml Inj IVP ONE ×2 (11:30→13:45)
[2020-02-07] MEDS ORDERED: Ketorolac 30mg Inj IV ONE (11:30)
[2020-02-07] MEDS ORDERED: Metoclopramide 10mg/2ml Inj IVP ONE ×2 (11:30→13:45)
[2020-02-07 11:46] LABS: EOSINOPHILS % (AUTO) 2.1 % (0.0-3.0); HEMATOCRIT 36.2 % (37.0-47.0); HEMOGLOBIN 12.6 G/DL (12.0-16.0); LYMPHOCYTES % (AUTO) 30.8 % (20.0-45.0); MEAN CORPUSCULAR VOLUME 85 FL (80-99); MONOCYTES % (AUTO) 8.8 % (1.0-10.0); NEUTROPHILS % (AUTO) 57.3 % (45.0-75.0); PLATELET COUNT 377 K/UL (150-450); RED BLOOD COUNT 4.25 M/UL (4.20-5.40); RED CELL DISTRIBUTION WIDTH 11.7 % (11.6-14.8)
[2020-02-07 11:50] LABS: ANION GAP 14 mmol/L (5-15); BLOOD UREA NITROGEN 20 mg/dL (7-18); CALCIUM 9.1 MG/DL (8.5-10.1); CARBON DIOXIDE 24 MMOL/L (21-32); CHLORIDE 99 MMOL/L (98-107); CREATININE 1.3 MG/DL (0.55-1.30); POTASSIUM 2.8 MMOL/L (3.5-5.1); SODIUM 137 MMOL/L (136-145)
--- NOTE | 2020-02-07 13:17 | Diagnostic Imaging Report ---
Indication: Headaches, dizziness, and hearing loss Technique: Spiral acquisitions obtained through the brain pre- and post-IV contrast administration. Angled axial and coronal 5 x 5 mm slices reconstructed. Total dose length product 2171 mGycm. CTDIvol(s) 53, 53 mGy. Dose reduction achieved using automated exposure control Comparison: Noncontrast brain CT dated 10/03/2017 Findings: Precontrast images demonstrate no acute intracranial hemorrhage or edema. Glover-white differentiation is normal. No mass effect nor midline shift. Normal size ventricles and extra-axial CSF spaces. Small patent cavum septum pellucidum is again incidentally noted. On the postcontrast images, no unusual contrast enhancement is evident. Visualized orbits and sinuses are unremarkable. The mastoids are clear. The calvarium is intact. There appears to be an exophytic dermal lesion protruding off of the right posterior supraorbital scalp. This contains some calcifications. Impression: Negative for acute intracranial bleed, mass effect, or contrast enhancing lesion Exophytic cutaneous lesion seen in the right posterior supraorbital region. Presumably clinically evident. The CT scanner at [facility] is accredited by the [employer] and the scans are performed using protocols designed to limit radiation exposure to as low as reasonably achievable to attain images of sufficient resolution adequate for diagnostic evaluation.
[2020-02-07] MEDS ORDERED: Acetaminophen 500mg (ES) tab ORAL ONE (13:45)
[2020-02-07] MEDS ORDERED: IBUPROFEN600 M1 ORAL (13:54)
[2020-02-07] MEDS ORDERED: MECLIZINE HCL25 MG ORAL (13:54)
[2020-02-07] MEDS ORDERED: TYLENOL EXTRA500 MG ORAL (13:54)
[2020-02-07] MEDS ORDERED: POTASSIUM CHLO20 ME1 ORAL (14:12)
[2020-02-07 14:23] VITALS: BP 125/77
== END 2020-02-07 14:25 | disposition home or self-care (01) ==
LOC: EMR 11:23
DX: G43.909 Migraine, unspecified, not intractable, without status migrainosus (principal); I10 Essential (primary) hypertension; Z90.49 Acquired absence of other specified parts of digestive tract; Z91.013 Allergy to seafood
CPT/HCPCS: 36415; 70470; 80048; 81025; 85025; 96365; 96375; 96376; J1200; J1885; J2765; J3480; J7030; Q9967; Z7502; 99284; J8499

== ENCOUNTER 2020-04-18 10:04 | Emergency (ER) | payer MEDICAID ==
[~2020-04-18] VITALS: Ht 165.1 cm; Wt 99.8 kg
[~2020-04-18 10:04] MED LIST changes: +IBUPROFEN600 M1 ORAL; +MECLIZINE HCL25 MG ORAL; +POTASSIUM CHLO20 ME1 ORAL
[2020-04-18] MEDS ORDERED: Ketorolac 30mg Inj IV ONE (10:30)
[2020-04-18] MEDS ORDERED: Metoclopramide 10mg/2ml Inj IVP ONE (10:30)
[2020-04-18] MEDS ORDERED: Meclizine 25mg tab ORAL PRN (10:30)
[2020-04-18 10:33] VITALS: BP 131/87
--- NOTE | 2020-04-18 10:33 | NUR ---
ED Nurse Note: Pt came from home for dizziness x2 days. Pt states she had LOC for 6-7 minutes and hit her head on floor. No wounds visible. Pt states she has history of low potassium. Pt is setup on monitor.
--- NOTE | 2020-04-18 10:33 | Emergency Room Report ---
History of Present Illness General Chief Complaint: Syncope Source: Patient Present Illness HPI Patient is a 44-year-old female past medical history of vertigo and migraines who presents to the ER status post syncope. Patient states that she went to a baby shower several days ago and has had nausea and vomiting for the past 2 days. She states that she has had a migraine for the past 2 days which is consistent with her baseline migraine. She denies any focal weakness, fever or sudden onset of headache. She states that she had an episode of vertigo last night while walking to the bathroom and passed out. She states that this is happened to her when she gets her vertigo. She states that this was witnessed by her children and they report no seizure-like activity. She denies any chest pain or shortness of breath prior to passing out. She denies any abdominal pain. She states that her nausea has improved but still complains of her migraine headache for which she takes Topamax at night as well as vertigo which she has not taken her meclizine for. Allergies: Coded Allergies: SHELLFISH DERIVED (Unverified Allergy, Unknown, 11/12/15) COVID-19 Screening Contact w/high risk pt: No Recent Travel to affected area: No Experienced COVID-19 symptoms?: No COVID-19 Testing performed LOAN BROKER: No Patient History Last Menstrual Period: 03/17/20 Reviewed Nursing Documentation: PMH: Agreed; PSxH: Agreed Nursing Documentation-PMH Past Medical History: No History, Except For Hx Hypertension: Yes - fast heart beat Hx Pacemaker: No - Vertigo Hx Asthma: No Hx COPD: No Hx Diabetes: No Hx Cancer: No Hx Gastrointestinal Problems: Yes Hx Dialysis: No History Of Psychiatric Problem: No Hx Neurological Problems: No Hx Cerebrovascular Accident: No Hx Seizures: No Review of Systems All Other Systems: negative except mentioned in HPI Physical Exam Vital Signs Date Time Temp Pulse Resp B/P (MAP) Pulse Ox O2 Delivery O2 Flow Rate FiO2 04/18/20 10:08 98.4 86 14 132/90 (104) 99 Sp02 EP Interpretation: reviewed, normal General Appearance: no apparent distress, alert, GCS 15, non-toxic Head: normocephalic, atraumatic Eyes: bilateral eye normal inspection, bilateral eye PERRL ENT: hearing grossly normal, normal pharynx, no angioedema, normal voice Neck: full range of motion, supple/symm/no masses Respiratory: chest non-tender, lungs clear, normal breath sounds, speaking full sentences Cardiovascular #1: regular rate, rhythm, no edema Gastrointestinal: normal bowel sounds, non tender, soft, non-distended, no guarding, no rebound Genitourinary: no CVA tenderness Musculoskeletal: normal range of motion, no calf tenderness, moves extm spontaneously, no lower extremity edema Neurologic: intake manager III-XII nml as tested, oriented x3 Psychiatric: no suicidal/homicidal ideation Skin: no rash Lymphatic: no adenopathy Medical Decision Making Diagnostic Impression: Primary Impression: Syncope Additional Impressions: Hypokalemia Migraine headache Vertigo ER Course Patient given oral and IV potassium chloride. Patient's repeat potassium is unchanged at 2.8. I have ordered for more IV potassium. Patient will be admitted for further treatment and evaluation. Laboratory Tests Test 04/18/20 10:26 04/18/20 10:30 04/18/20 13:16 Urine Color Pale yellow Urine Appearance Clear Urine pH 6 (4.5-8.0) Urine Specific [place] 1.005 (1.005-1.035) Urine Protein 1+ (NEGATIVE) H Urine Glucose (UA) Negative (NEGATIVE) Urine Ketones Negative (NEGATIVE) Urine Blood 5+ (NEGATIVE) H Urine Nitrite Negative (NEGATIVE) Urine Bilirubin Negative (NEGATIVE) Urine Urobilinogen Normal MG/DL (0.0-1.0) Urine Leukocyte Esterase 1+ (NEGATIVE) H Urine RBC 5-10 /HPF (0 - 2) H Urine WBC 2-4 /HPF (0 - 2) Urine Squamous Epithelial Cells Few /LPF (NONE/OCC) Urine Bacteria Few /HPF (NONE) Urine HCG, Qualitative Negative (NEGATIVE) Urine Opiates Screen Negative (NEGATIVE) Urine Barbiturates Screen Negative (NEGATIVE) Phencyclidine (PCP) Screen Negative (NEGATIVE) Urine Amphetamines Screen Negative (NEGATIVE) Urine Benzodiazepines Screen Negative (NEGATIVE) Urine Cocaine Screen Negative (NEGATIVE) Urine Marijuana (THC) Screen Positive (NEGATIVE) H White Blood Count 5.6 K/UL (4.8-10.8) Red Blood Count 4.23 M/UL (4.20-5.40) Hemoglobin 12.5 G/DL (12.0-16.0) Hematocrit 37.3 % (37.0-47.0) Mean Corpuscular Volume 88 FL (80-99) Mean Corpuscular Hemoglobin 29.5 PG (27.0-31.0) Mean Corpuscular Hemoglobin Concent 33.5 G/DL (32.0-36.0) Red Cell Distribution Width 12.3 % (11.6-14.8) Platelet Count 435 K/UL (150-450) Mean Platelet Volume 6.3 FL (6.5-10.1) L Neutrophils (%) (Auto) 48.5 % (45.0-75.0) Lymphocytes (%) (Auto) 37.9 % (20.0-45.0) Monocytes (%) (Auto) 9.8 % (1.0-10.0) Eosinophils (%) (Auto) 1.5 % (0.0-3.0) Basophils (%) (Auto) 2.4 % (0.0-2.0) H Prothrombin Time 10.7 SEC (9.30-11.50) Prothrombin Time INR 1.0 (0.9-1.1) Activated Partial Thromboplast Time 23 SEC (23-33) Sodium Level 135 MMOL/L (136-145) L Potassium Level 2.8 MMOL/L (3.5-5.1) L 2.8 MMOL/L (3.5-5.1) L Chloride Level 99 MMOL/L (98-107) Carbon Dioxide Level 23 MMOL/L (21-32) Anion Gap 14 mmol/L (5-15) Blood Urea Nitrogen 14 mg/dL (7-18) Creatinine 1.3 MG/DL (0.55-1.30) Estimated Glomerular Filtration Rate 54.4 mL/min (>60) Glucose Level 120 MG/DL (74-106) H Calcium Level 9.4 MG/DL (8.5-10.1) Magnesium Level 1.9 MG/DL (1.8-2.4) Total Bilirubin 0.7 MG/DL (0.2-1.0) Aspartate Amino Transferase (AST) 36 U/L (15-37) Alanine Aminotransferase (ALT) 36 U/L (12-78) Alkaline Phosphatase 41 U/L (46-116) L Total Creatine Kinase 138 U/L (26-308) Troponin I 0.000 ng/mL (0.000-0.056) Pro-B-Type Natriuretic Peptide 17 pg/mL (0-125) Total Protein 8.4 G/DL (6.4-8.2) H Albumin 3.7 G/DL (3.4-5.0) Globulin 4.7 g/dL Albumin/Globulin Ratio 0.8 (1.0-2.7) L EKG Diagnostic Results EKG Time: 10:44 EP Interpretation: Liliana Galicia MD Rate: normal Rhythm: NSR ST Segments: no acute changes Other Impression Prolonged QT ASA given to the pt in ED: No Rhythm Strip Diag. Results Rhythm Strip Time: 10:32 EP Interpretation: yes - Liliana Galicia MD Rate: 63 bpm Rhythm: NSR, no PVC's, no ectopy Last Vital Signs Date Time Temp Pulse Resp B/P (MAP) Pulse Ox O2 Delivery O2 Flow Rate FiO2 04/18/20 10:08 98.4 86 14 132/90 (104) 99 Disposition: ADMITTED INPATIENT Condition: Critical Referrals: NON PHYSICIAN (PCP) Additional Instructions: Please note that this report is being documented using Endov[employer] technology. This can lead to erroneous entry secondary to incorrect interpretation by the dictating instrument. Liliana Galicia M.D. Apr 18, 2020 10:33
--- NOTE | 2020-04-18 10:53 | Diagnostic Imaging Report ---
CT HEAD WITHOUT CONTRAST INDICATION: Reason For Exam: TRAUMA Technique: Continuous helical CT scanning of the head was performed without intravenous contrast material. Axial and coronal 5 mm sections were generated. Radiation dose was minimized using automated exposure control DOSE: Total Dose Length Product - DLP 1072.[address] Dose Index - CTDIvol(s) 53.4 mGy. COMPARISON: CT head dated 02/07/2020 FINDINGS: There is no acute intracranial hemorrhage, mass effect or cortical edema. The ventricles, cisterns and sulci are normal for age. Mild bilateral maxillary sinus mucosal thickening. Mastoid air cells are clear. No focal lesions of the bony calvarium or soft tissues of the scalp are seen. IMPRESSION: No evidence of acute intracranial hemorrhage, mass effect or cortical edema. The CT scanner at [facility] is accredited by the [employer] and the scans are performed using protocols designed to limit radiation exposure to as low as reasonably achievable to attain images of sufficient resolution adequate for diagnostic evaluation.
[2020-04-18 11:00] LABS: BASOPHILS % (AUTO) 2.4 % (0.0-2.0); EOSINOPHILS % (AUTO) 1.5 % (0.0-3.0); HEMATOCRIT 37.3 % (37.0-47.0); HEMOGLOBIN 12.5 G/DL (12.0-16.0); LYMPHOCYTES % (AUTO) 37.9 % (20.0-45.0); MEAN CORPUSCULAR VOLUME 88 FL (80-99); MONOCYTES % (AUTO) 9.8 % (1.0-10.0); NEUTROPHILS % (AUTO) 48.5 % (45.0-75.0); PLATELET COUNT 435 K/UL (150-450); RED BLOOD COUNT 4.23 M/UL (4.20-5.40); RED CELL DISTRIBUTION WIDTH 12.3 % (11.6-14.8); WHITE BLOOD COUNT 5.6 K/UL (4.8-10.8)
[2020-04-18 11:13] LABS: ALANINE AMINOTRANSFERASE 36 U/L (12-78); ALBUMIN 3.7 G/DL (3.4-5.0); ALBUMIN/GLOBULIN RATIO 0.8 (1.0-2.7); ALKALINE PHOSPHATASE 41 U/L (46-116); ANION GAP 14 mmol/L (5-15); ASPARTATE AMINO TRANSFERASE 36 U/L (15-37); BILIRUBIN,TOTAL 0.7 MG/DL (0.2-1.0); BLOOD UREA NITROGEN 14 mg/dL (7-18); CALCIUM 9.4 MG/DL (8.5-10.1); CARBON DIOXIDE 23 MMOL/L (21-32); CHLORIDE 99 MMOL/L (98-107); CREATINE KINASE 138 U/L (26-308); CREATININE 1.3 MG/DL (0.55-1.30); POTASSIUM 2.8 MMOL/L (3.5-5.1); SODIUM 135 MMOL/L (136-145)
[2020-04-18 11:26] LABS: COLOR,URINE PALE YELLOW
[2020-04-18 11:27] LABS: APPEARANCE,URINE CLEAR; BILIRUBIN, URINE NEGATIVE (NEGATIVE); GLUCOSE, URINE (UA) NEGATIVE (NEGATIVE); KETONES,URINE NEGATIVE (NEGATIVE); LEUKOCYTE ESTERASE ,URINE 1+ (NEGATIVE); NITRITE,URINE NEGATIVE (NEGATIVE); PH,URINE 6 (4.5-8.0); PROTEIN,URINE 1+ (NEGATIVE); UROBILINOGEN,URINE NORMAL MG/DL (0.0-1.0)
[2020-04-18 13:35] VITALS: BP 137/82
--- NOTE | 2020-04-18 16:06 | Diagnostic Imaging Report ---
Indication: Shortness of breath Technique: One view of the chest Comparison: 05/04/2018 Findings: Lungs and pleural spaces are clear. Heart size is normal. No significant change Impression: No acute process
[2020-04-18 16:22] VITALS: BP 133/86
[2020-04-18 18:13] VITALS: BP 125/85
[2020-04-18] MEDS ORDERED: ACETAMINOPHEN-1 EAC1 ORAL (18:13)
[2020-04-18] MEDS ORDERED: TOPAMAX25 MG ORAL (18:13)
[2020-04-18] MEDS ORDERED: CHLORTHALIDONE25 MG ORAL (18:14)
--- NOTE | 2020-04-18 18:41 | NUR ---
ED Nurse Note: Report given to Narcisa [facility].
--- NOTE | 2020-04-18 18:54 | NUR ---
ED Nurse Note: Pt transferred to [facility] with all belongings. No acute distress. Pt is alert and ox4, amb.
[2020-04-18 18:55] VITALS: BP 123/84
== END 2020-04-18 18:54 | disposition short-term general hospital (02) ==
LOC: EMR 10:25
DX: R55 Syncope and collapse (principal); E87.6 Hypokalemia; R42 Dizziness and giddiness; G43.909 Migraine, unspecified, not intractable, without status migrainosus; I10 Essential (primary) hypertension; Z91.013 Allergy to seafood
CPT/HCPCS: 36415; 70450; 71045; 80053; 80307; 81003; 81025; 82550; 83735; 83880; 84132; 84484; 85025; 85610; 85730; 93005; 96361; 96365; 96366; 96375; J1885; J2765; J3480; J7030; U0002; Z7502; 99284; J8499

== ENCOUNTER 2020-05-21 11:31 | Emergency (ER) | payer MEDICAID ==
[~2020-05-21] VITALS: Ht 165.1 cm; Wt 99.8 kg
[~2020-05-21 11:31] MED LIST changes: +ACETAMINOPHEN-1 EAC1 ORAL; +CHLORTHALIDONE25 MG ORAL; +TOPAMAX25 MG ORAL
[2020-05-21 11:48] VITALS: BP 114/77
--- NOTE | 2020-05-21 11:48 | NUR ---
ED Nurse Note:pt. came from home with c/o lower back pain, s/p fall 3 weeks ago, pt. is A/Ox4 ambulatory with steady gait ,VSS
--- NOTE | 2020-05-21 11:56 | Emergency Room Report ---
History of Present Illness General Chief Complaint: Back Pain-No Injury Source: Patient, Medical Record Present Illness HPI Patient is a 44-year-old female multiple medical history who presents to the ER complaining of right lower back pain. Patient states that she is a history of s ciatica. Patient states that she fell 3 weeks ago and landed onto her right side. She states that since then she has had right lower back pain that radiates down her right leg. She denies any fever or chills. She denies any focal weakness. She denies any chest pain or shortness of breath. She denies any changes to her bowel or bladder habits. She denies any history of back s urgery. Patient states that she has been time to take ibuprofen at home but continues to have pain. She denies any head trauma when she fell. 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 COVID-19 Screening: Negative COVID-19 COVID-19 Testing Source[place] [facility] [place] Patient History Now: No Reviewed Nursing Documentation: PMH: Agreed; PSxH: Agreed Nursing Documentation-PMH Past Medical History: No History, Except For Hx Cardiac Problems: Yes Hx Hypertension: Yes - "fast heart beat" "low potassium" Hx Pacemaker: No - Vertigo Hx Asthma: No Hx COPD: No Hx Diabetes: No Hx Cancer: No Hx Gastrointestinal Problems: Yes - cholecystectomy 2013 Hx Dialysis: No Hx Neurological Problems: Yes - migraine Hx Cerebrovascular Accident: No Hx Seizures: No Review of Systems All Other Systems: negative except mentioned in HPI Physical Exam Vital Signs Date Time Temp Pulse Resp B/P (MAP) Pulse Ox O2 Delivery O2 Flow Rate FiO2 05/21/20 11:41 98.1 75 14 114/77 (89) 100 Room Air Sp02 EP Interpretation: reviewed, normal General Appearance: no apparent distress, alert, GCS 15, non-toxic Head: normocephalic, atraumatic Eyes: bilateral eye normal inspection, bilateral eye PERRL ENT: hearing grossly normal, normal pharynx, no angioedema, normal voice Neck: full range of motion, supple/symm/no masses Respiratory: chest non-tender, lungs clear, normal breath sounds, speaking full sentences Cardiovascular #1: regular rate, rhythm, no edema Gastrointestinal: normal bowel sounds, non tender, soft, non-distended, no guarding, no rebound, overweight Musculoskeletal: other - Bilateral lower extremity edema with no erythema or tenderness to palpation, right lower back pain radiating down the right leg, positive straight leg test Neurologic: frog farmer III-XII nml as tested, oriented x3 Psychiatric: no suicidal/homicidal ideation Skin: no rash Lymphatic: no adenopathy Medical Decision Making Diagnostic Impression: Primary Impression: Sciatica Additional Impression: Back pain ER Course Patient's labs demonstrate no significant acute abnormalities. Her UA is positive for RBCs. Patient states that she is at the end of her menstrual cycle. No blood cell count and no evidence for UTI. I have given her Robaxin and fentanyl. On reevaluation she states that her pain has resolved. CT demonstrates no acute traumatic injury. I suspect the back pain that the patient is presenting with is non-emergent in etiology. Regarding the history, the patient denies gradual onset, trauma, fevers, night sweats, history of malignancy, pain worse at night, IVDU or refractory pain. Given these pertinent negatives in the history an emergent cause of the back pain is less likely. Also doubt cardiovascular cause of back pain such as aortic dissection or ruptured abdominal aortic aneurysm given patient with equal pulses in all 4 extremities with no diastolic murmur, or pulsatile abdominal mass. Epidural abscess considered unlikely given no fever or history of IVDU. The patient does not have history of malignancy so doubt metastasis to bone. Also doubt caudaequina syndrome since patient with no history of urinary/fecal incontinence or focal weakness or change in sensation. The patient was counseled that, though unlikely, the possibility of an emergent cause of back pain may still be present and that the patient should return immediately if symptoms persists or worsen. I believe the patient is stable for discharge to follow-up with their PMD for further workup and possible MRI. Laboratory Tests Test 05/21/20 12:00 White Blood Count 5.5 K/UL (4.8-10.8) Red Blood Count 4.03 M/UL (4.20-5.40) L Hemoglobin 11.4 G/DL (12.0-16.0) L Hematocrit 35.7 % (37.0-47.0) L Mean Corpuscular Volume 89 FL (80-99) Mean Corpuscular Hemoglobin 28.3 PG (27.0-31.0) Mean Corpuscular Hemoglobin Concent 32.0 G/DL (32.0-36.0) Red Cell Distribution Width 13.3 % (11.6-14.8) Platelet Count 317 K/UL (150-450) Mean Platelet Volume 6.3 FL (6.5-10.1) L Neutrophils (%) (Auto) 54.8 % (45.0-75.0) Lymphocytes (%) (Auto) 31.5 % (20.0-45.0) Monocytes (%) (Auto) 6.7 % (1.0-10.0) Eosinophils (%) (Auto) 4.1 % (0.0-3.0) H Basophils (%) (Auto) 2.9 % (0.0-2.0) H Urine Color Pale yellow Urine Appearance Clear Urine pH 6 (4.5-8.0) Urine Specific [place] 1.015 (1.005-1.035) Urine Protein Negative (NEGATIVE) Urine Glucose (UA) Negative (NEGATIVE) Urine Ketones Negative (NEGATIVE) Urine Blood 4+ (NEGATIVE) H Urine Nitrite Negative (NEGATIVE) Urine Bilirubin Negative (NEGATIVE) Urine Urobilinogen Normal MG/DL (0.0-1.0) Urine Leukocyte Esterase Negative (NEGATIVE) Urine RBC 2-4 /HPF (0 - 2) H Urine WBC 0-2 /HPF (0 - 2) Urine Squamous Epithelial Cells Few /LPF (NONE/OCC) Urine Bacteria Few /HPF (NONE) Sodium Level 143 MMOL/L (136-145) Potassium Level 4.1 MMOL/L (3.5-5.1) Chloride Level 113 MMOL/L (98-107) H Carbon Dioxide Level 20 MMOL/L (21-32) L Anion Gap 10 mmol/L (5-15) Blood Urea Nitrogen 17 mg/dL (7-18) Creatinine 1.0 MG/DL (0.55-1.30) Estimated Glomerular Filtration Rate > 60 mL/min (>60) Glucose Level 94 MG/DL (74-106) Calcium Level 8.4 MG/DL (8.5-10.1) L Magnesium Level 1.9 MG/DL (1.8-2.4) Total Bilirubin 0.2 MG/DL (0.2-1.0) Aspartate Amino Transferase (AST) 17 U/L (15-37) Alanine Aminotransferase (ALT) 28 U/L (12-78) Alkaline Phosphatase 42 U/L (46-116) L Total Protein 7.3 G/DL (6.4-8.2) Albumin 3.2 G/DL (3.4-5.0) L Globulin 4.1 g/dL Albumin/Globulin Ratio 0.8 (1.0-2.7) L Human Chorionic Gonadotropin, Qual Negative (NEGATIVE) Last Vital Signs Date Time Temp Pulse Resp B/P (MAP) Pulse Ox O2 Delivery O2 Flow Rate FiO2 05/21/20 11:48 98.1 75 14 114/77 100 Room Air Disposition: HOME, SELF-CARE Condition: Stable Scripts Tramadol Hcl* (ULTRAM*) 50 Mg Tablet 50 MG ORAL Q6H PRN for For Pain, #20 TAB 0 Refills Prov: Liliana Galicia M.D. 05/21/20 Methocarbamol* (ROBAXIN-750*) 750 Mg Tablet 750 MG PO TID, #21 TAB 0 Refills Prov: Liliana Galicia M.D. 05/21/20 Additional Instructions: The patient was provided with discharge instructions, notified to follow-up with a primary care doctor and or specialist in the next 24-48 hours, and to return to the ED if they have worsening of their symptoms. Please note that this report is being documented using [employer] technology. This can lead to erroneous entry secondary to incorrect interpretation by the dictating instrument. Liliana Galicia M.D. May 21, 2020 11:56
[2020-05-21] MEDS ORDERED: fentaNYL 100 mcg/2 mL IV ONE (12:00)
[2020-05-21] MEDS ORDERED: Methocarbamol 750mg tab ORAL ONE (12:00)
[2020-05-21 12:32] LABS: BASOPHILS % (AUTO) 2.9 % (0.0-2.0); EOSINOPHILS % (AUTO) 4.1 % (0.0-3.0); HEMATOCRIT 35.7 % (37.0-47.0); HEMOGLOBIN 11.4 G/DL (12.0-16.0); LYMPHOCYTES % (AUTO) 31.5 % (20.0-45.0); MEAN CORPUSCULAR VOLUME 89 FL (80-99); MONOCYTES % (AUTO) 6.7 % (1.0-10.0); NEUTROPHILS % (AUTO) 54.8 % (45.0-75.0); PLATELET COUNT 317 K/UL (150-450); RED BLOOD COUNT 4.03 M/UL (4.20-5.40); RED CELL DISTRIBUTION WIDTH 13.3 % (11.6-14.8); WHITE BLOOD COUNT 5.5 K/UL (4.8-10.8)
[2020-05-21 12:44] LABS: APPEARANCE,URINE CLEAR; BILIRUBIN, URINE NEGATIVE (NEGATIVE); COLOR,URINE PALE YELLOW; GLUCOSE, URINE (UA) NEGATIVE (NEGATIVE); KETONES,URINE NEGATIVE (NEGATIVE); LEUKOCYTE ESTERASE ,URINE NEGATIVE (NEGATIVE); NITRITE,URINE NEGATIVE (NEGATIVE); PH,URINE 6 (4.5-8.0); PROTEIN,URINE NEGATIVE (NEGATIVE); UROBILINOGEN,URINE NORMAL MG/DL (0.0-1.0)
[2020-05-21 12:46] LABS: ANION GAP 10 mmol/L (5-15); BLOOD UREA NITROGEN 17 mg/dL (7-18); CALCIUM 8.4 MG/DL (8.5-10.1); CARBON DIOXIDE 20 MMOL/L (21-32); CHLORIDE 113 MMOL/L (98-107); POTASSIUM 4.1 MMOL/L (3.5-5.1); SODIUM 143 MMOL/L (136-145)
[2020-05-21 12:50] LABS: ALANINE AMINOTRANSFERASE 28 U/L (12-78); ALBUMIN 3.2 G/DL (3.4-5.0); ALBUMIN/GLOBULIN RATIO 0.8 (1.0-2.7); ALKALINE PHOSPHATASE 42 U/L (46-116); ASPARTATE AMINO TRANSFERASE 17 U/L (15-37); BILIRUBIN,TOTAL 0.2 MG/DL (0.2-1.0)
--- NOTE | 2020-05-21 13:44 | Diagnostic Imaging Report ---
EXAM: CT Lumbar Spine Without Intravenous Contrast CLINICAL HISTORY: FALL TECHNIQUE: Axial computed tomography images of the lumbar spine without intravenous contrast. CTDI is 17 mGy and DLP is 542 mGy-cm. One or more of the following dose reduction techniques were used: automated exposure control, adjustment of the mA and/or kV according to patient size, use of iterative reconstruction technique. COMPARISON: None FINDINGS: Bones: Normal alignment. No acute fracture. Sclerosis along the SI joints. Disc spaces: No subluxation. Degenerative changes of the spine. Mild spinal canal stenosis at L3-4. Severe spinal canal stenosis at L4-5. Mild spinal canal stenosis at L5-S1 due to central disc protrusion. Mild bilateral neural foraminal stenoses at L1-2. Mild to moderate bilateral neural foraminal stenoses at L2-3 and L3-4. Moderate bilateral neural foraminal stenoses at L4-5. Severe bilateral neural foraminal stenoses at L5-S1 Soft tissues: Normal. Other: Prior cholecystectomy. Normal appendix. IMPRESSION: 1. No acute traumatic abnormality. 2. Degenerative changes as described above.
[2020-05-21] MEDS ORDERED: TRAMADOL HCL50 MG ORAL (13:46)
[2020-05-21] MEDS ORDERED: ROBAXIN-750750 MG PO (13:46)
[2020-05-21 13:55] VITALS: BP 114/77
--- NOTE | 2020-05-21 13:55 | NUR ---
ER DISCHARGE NOTE: Patient is cleared to be discharged per ERMD, pt is aox4, on room air, with stable vital signs. pt was given dc and prescription instructions, pt was able to verbalize understanding, pt id band and iv site removed without complications. pt is able to ambulate with steady gait. pt took all belongings.
== END 2020-05-21 14:09 | disposition home or self-care (01) ==
LOC: EMR 13:25
DX: M54.30 Sciatica, unspecified side (principal); M54.5 Low back pain; Z91.013 Allergy to seafood; I10 Essential (primary) hypertension; Z90.49 Acquired absence of other specified parts of digestive tract
CPT/HCPCS: 36415; 72131; 80053; 81003; 83735; 84703; 85025; 96374; J3010; Z7502; 99284